=== PATIENT | female | born 1950 | race Caucasian/White ===

== ENCOUNTER 2019-03-23 18:57 | Inpatient (IN) | payer MEDICARE, BC ==
[2019-03-23] MEDS ORDERED: LORazepam 2 MG/ML INJ IV STA (19:38)
--- NOTE | 2019-03-23 19:42 | ED ---
General Adult HPI - General Chief complaint: Headache Stated complaint: Poss stroke Time Seen by Provider: 03/23/19 19:05 Source: patient Mode of arrival: ambulatory Limitations: no limitations - History of Present Illness Initial comments: Dictation was produced using [employer] dictation software. please excuse any grammatical, word or spelling errors. Chief Complaint: 69-year-old female with past medical history of atrial fibrillation, coronary artery disease presents with anxiety reaction. History of Present Illness:-year-old female she has a past medical history of anxiety. She states that over the last 3-4 days she's been really anxious. She's been hyperventilating to the point where her hands and feet will exp erience paresthesias. Patient denies any personal stress. Patient has a history of anxiety. Family at bedside reports that she is anxious about having another anxiety attack. Patient also reports having intermittent head pressure over the last 2 weeks. Denies any headache. Patient has no pain complaints. Denies any shortness of breath. The ROS documented in this emergency department record has been reviewed and confirmed by me. Those systems with pertinent positive or negative responses have been documented in the HPI. All other systems are other negative and/or noncontributory. PHYSICAL EXAM: General Impression: Alert and oriented x3, not in acute distress HEENT: Normocephalic atraumatic, extra-ocular movements intact, pupils equal and reactive to light bilaterally, mucous membranes moist. Cardiovascular: Heart regular rate and rhythm, S1&S2 audible, no murmurs, rubs or gallops Chest: Lungs clear to auscultation bilaterally, no rhonchi, no wheeze, no rales Abdomen: Bowel sounds present, abdomen soft, non-tender, non-distended, no organomegaly Musculoskeletal: Pulses present and equal in all extremities, no peripheral edema Motor: no focal deficits noted Neurological: CN II-XII grossly intact, no focal motor or sensory deficits noted Skin: Intact with no visualized rashes Psych: Anxious, hyperventilating ED course:-year-old female presents with clinical presentation consistent with acute anxiety reaction. As upon arrival shows blood pressure 206/99, worse jose l signs within acceptable limits. Laboratory evaluation obtained. CBC, metabolic panel, urine studies are found to be unremarkable. She does however have 2+ ketones. Patient given intravenous fluids. Patient also given IV benzodiazepines. Patient was observed [facility] department for couple hours with improvement of her anxiety symptoms. Repeat blood pressure was improved. Repeat EKG was performed showing persistent prolonged QT. At this point is unclear what is causing patient's long QT given that she has normal electrolytes. It is likely that secondary to what these medications however it's unclear which medications causing this. Given EKG abnormalities patient to be admitted to inpatient with cardiology consultation and cardiac monitoring. Patient is understandable agreeable to disposition. She case discussed with Dr. Stein who is willing to accept care of this patient. EKG interpretation: Ventricular rate 65, normal sinus rhythm,. Interval 140, care is 88, QTc 505. No KS prolongation, no ST or T-wave changes noted. EKG consistent with prolonged QT - Related Data Home Medications Medication Instructions Recorded Confirmed FLUoxetine HCL 40 mg PO DAILY 12/30/16 03/23/19 ALPRAZolam [Xanax] 0.5 mg PO Q6H PRN 03/23/19 03/23/19 Apixaban [Eliquis] 5 mg PO BID 03/23/19 03/23/19 Losartan [Cozaar] 50 mg PO DAILY 03/23/19 03/23/19 Sotalol HCl [Sotalol AF] 80 mg PO BID 03/23/19 03/23/19 Zolpidem Tartrate [Ambien] 5 mg PO HS PRN 03/23/19 03/23/19 busPIRone HCL 15 mg PO BID 03/23/19 03/23/19 Allergies Allergy/AdvReac Type Severity Reaction Status Date / Time No Known Allergies Allergy Verified 03/23/19 19:18 Review of Systems ROS Statement: Those systems with pertinent positive or pertinent negative responses have been documented in the HPI. ROS Other: All systems not noted in ROS Statement are negative. Past Medical History Past Medical History: Atrial Fibrillation, Coronary Artery Disease (CAD), Hypertension History of Any Multi-Drug Resistant Organisms: None Reported Additional Past Surgical History / Comment(s): Colonoscopy; kidney stone removal, exp. lap., cardioversion Past Anesthesia/Blood Transfusion Reactions: No Reported Reaction Past Psychological History: Anxiety Smoking Status: Current some day smoker Past Alcohol Use History: Rare Past Drug Use History: None Reported - Past Family History Father Family Medical History: Cancer General Exam Limitations: no limitations Course Vital Signs 03/23/19 18:59 Temperature 97.8 F Pulse Rate 71 Respiratory 24 Rate Blood Pressure 206/99 O2 Sat by Pulse 99 Oximetry Medical Decision Making - Lab Data Result diagrams: 03/23/19 19:54 03/23/19 19:54 Lab Results 03/23/19 03/23/19 03/23/19 Range/Units 19:54 19:54 19:55 WBC 9.0 (3.8-10.6) k/uL RBC 4.81 (3.80-5.40) m/uL Hgb 15.1 (11.4-16.0) gm/dL Hct 45.9 (34.0-46.0) % MCV 95.4 (80.0-100.0) fL MCH 31.4 (25.0-35.0) pg MCHC 32.9 (31.0-37.0) g/dL RDW 12.7 (11.5-15.5) % Plt Count 342 (150-450) k/uL Neutrophils % 66 % Lymphocytes % 21 % Monocytes % 8 % Eosinophils % 2 % Basophils % 0 % Neutrophils # 5.9 (1.3-7.7) k/uL Lymphocytes # 1.9 (1.0-4.8) k/uL Monocytes # 0.8 (0-1.0) k/uL Eosinophils # 0.2 (0-0.7) k/uL Basophils # 0.0 (0-0.2) k/uL Sodium 138 (137-145) mmol/L Potassium 3.9 (3.5-5.1) mmol/L Chloride 104 (98-107) mmol/L Carbon Dioxide 22 (22-30) mmol/L Anion Gap 12 mmol/L BUN 15 (7-17) mg/dL Creatinine 0.69 (0.52-1.04) mg/dL Est GFR (CKD-EPI)AfAm >90 (>60 ml/min/1.73 sqM) Est GFR (CKD-EPI)NonAf 89 (>60 ml/min/1.73 sqM) Glucose 104 H (74-99) mg/dL Calcium 10.7 H (8.4-10.2) mg/dL Magnesium 2.2 (1.6-2.3) mg/dL Urine Color Yellow Urine Appearance Clear (Clear) Urine pH 6.0 (5.0-8.0) Ur Specific [place] 1.029 (1.001-1.035) Urine Protein Trace H (Negative) Urine Glucose (UA) Negative (Negative) Urine Ketones 2+ H (Negative) Urine Blood Negative (Negative) Urine Nitrite Negative (Negative) Urine Bilirubin Negative (Negative) Urine Urobilinogen <2.0 (<2.0) mg/dL Ur Leukocyte Esterase Trace H (Negative) Urine RBC 2 (0-5) /hpf Urine WBC 1 (0-5) /hpf Ur Squamous Epith Cells <1 (0-4) /hpf Urine Mucus Occasional H (None) /hpf Disposition Clinical Impression: Prolonged QT interval, Anxiety Disposition: ADMITTED IP TO THIS HOSP Condition: Fair Referrals: Radha Love MD [Primary Care Provider] - 1-2 days Decision Time: 21:25
[2019-03-23 20:03] LABS: Basophils % (A) 0 %; Eosinophils # (A) 0.2 k/uL (0-0.7); Eosinophils % (A) 2 %; HCT 45.9 % (34.0-46.0); HGB 15.1 gm/dL (11.4-16.0); Lymphocytes # (A) 1.9 k/uL (1.0-4.8); Lymphocytes % (A) 21 %; MCH 31.4 pg (25.0-35.0); MCHC 32.9 g/dL (31.0-37.0); MCV 95.4 fL (80.0-100.0); Mean Platelet Volume 6.5; Monocytes # (A) 0.8 k/uL (0-1.0); Monocytes % (A) 8 %; Neutrophils # (A) 5.9 k/uL (1.3-7.7); Neutrophils % (A) 66 %; Platelet Count 342 k/uL (150-450); RBC 4.81 m/uL (3.80-5.40); RDW 12.7 % (11.5-15.5)
--- NOTE | 2019-03-23 20:04 | XR ---
EXAMINATION TYPE: XR chest 1V portable DATE OF EXAM: 03/23/2019 COMPARISON: NONE HISTORY: Headache for 2 weeks and weakness. TECHNIQUE: Single frontal view of the chest is obtained. FINDINGS: There is chronic parenchymal change without suspicious focal air space opacity, pleural ef fusion, or pneumothorax seen. The cardiac silhouette size is within normal limits. The osseous str uctures are demineralized. Surgical clips near gastroesophageal junction are redemonstrated. IMPRESSION: Chronic parenchymal changes without acute pulmonary process.
[2019-03-23 20:11] LABS: Anion Gap 12 mmol/L; Blood Urea Nitrogen 15 mg/dL (7-17); Calcium 10.7 mg/dL (8.4-10.2); Carbon Dioxide 22 mmol/L (22-30); Chloride 104 mmol/L (98-107); Glucose 104 mg/dL (74-99); Magnesium 2.2 mg/dL (1.6-2.3); Potassium 3.9 mmol/L (3.5-5.1); Sodium 138 mmol/L (137-145)
[2019-03-23 20:17] LABS: Appearance,Urine Clear (Clear); Bilirubin,Urine Negative (Negative); Blood,Urine Negative (Negative); Color,Urine Yellow; Glucose,Urine (UA) Negative (Negative); Ketones,Urine 2+ (Negative); Leukocyte Esterase,Urine Trace (Negative); Mucus,Urine Occasional /hpf; Nitrite,Urine Negative (Negative); Protein,Urine Trace (Negative); RBC,Urine 2 /hpf (0-5); Specific Gravity,Urine 1.029 (1.001-1.035); Squamous Epithelial Cell,Urine <1 /hpf (0-4); Urobilinogen,Urine <2.0 mg/dL (<2.0)
[2019-03-23] MEDS ORDERED: SODIUM CHLORIDE 0.9% 1,000 ML IV STA (20:38)
[2019-03-23] MEDS ORDERED: NALOXONE 0.4 MG/ML 1 ML VIAL IV PRN (21:20)
[2019-03-23 21:31] VITALS: RESP 18
[2019-03-23] MEDS ORDERED: hydrALAZINE HCL 20 MG/ML 1 ML VIAL IVP STA (21:39)
[2019-03-23] MEDS: ALPRAZolam 0.5 MG TAB PO PRN (21:44)
[2019-03-23 22:53] VITALS: BMI 22.8
[2019-03-24] MEDS: ZOLPIDEM 5 MG TAB PO PRN ×2 (00:11→23:12)
--- NOTE | 2019-03-24 00:52 | P.HPIM ---
History of Present Illness H&P Date: 03/24/19 The patient is a 69 yo F with a PMH of Afib (on Eliquis), CAD, and HTN who presented to the ED for a panic attack. The patient reported feeling anxious over the past week, with panic-attacks occuring daily, which she described as episodes with hyperventilation, sense of doom, head pressure, and chest tightness. She reports a long-standing history of anxiety for which she had been taking Fluoxetine and Buspirone and was recently also started on Ambien for insomnia. She reports that her panic attacks worsened after she turned 68 since her mother and grandmother both at the age of 69, and she thereby worries about her own well-being. The patient underwent an extensive evaluation in the ED w/ EKG showing NSR @ 65 bpm, w/ prolonged QTC at 505 ms, WBC 9, Hgb 15, BUN 15, Cr 0.69, and CXR showing chronic parenchymal changes without an acute process. The patient denied having a history of an abnormal EKG. The patient was subsequently admitted to the medicine service for further eval uation. Review of Systems Pertinent positives and negatives as discussed in HPI, a complete review of systems was performed and all other systems are negative. Past Medical History Past Medical History: Atrial Fibrillation, Coronary Artery Disease (CAD), Hypertension History of Any Multi-Drug Resistant Organisms: None Reported Additional Past Surgical History / Comment(s): Colonoscopy; kidney stone removal, exp. lap., cardioversion x2 Past Anesthesia/Blood Transfusion Reactions: No Reported Reaction Past Psychological History: Anxiety Smoking Status: Current some day smoker Past Alcohol Use History: Rare Additional Past Alcohol Use History / Comment(s): social smoker and drinker Past Drug Use History: None Reported - Past Family History Father Family Medical History: Cancer Medications and Allergies Home Medications Medication Instructions Recorded Confirmed Type FLUoxetine HCL 40 mg PO DAILY 12/30/16 03/23/19 History ALPRAZolam [Xanax] 0.5 mg PO Q6H PRN 03/23/19 03/23/19 History Apixaban [Eliquis] 5 mg PO BID 03/23/19 03/23/19 History Losartan [Cozaar] 50 mg PO DAILY 03/23/19 03/23/19 History Sotalol HCl [Sotalol AF] 80 mg PO BID 03/23/19 03/23/19 History Temazepam 30 mg PO HS PRN 03/23/19 03/23/19 History Zolpidem Tartrate [Ambien] 5 mg PO HS PRN 03/23/19 03/23/19 History busPIRone HCL 15 mg PO BID 03/23/19 03/23/19 History Allergies Allergy/AdvReac Type Severity Reaction Status Date / Time No Known Allergies Allergy Verified 03/23/19 19:18 Physical Exam Vitals: Vital Signs Temp Pulse Pulse Resp BP BP Pulse Ox 03/23/19 23:27 72 18 03/23/19 23:24 98.0 F 72 18 135/77 100 03/23/19 22:42 98.0 F 69 18 132/72 100 03/23/19 22:05 75 18 154/78 100 03/23/19 21:31 98.3 F 67 18 198/96 100 03/23/19 18:59 97.8 F 71 24 206/99 99 Intake and Output 03/23/19 03/23/19 03/24/19 14:59 22:59 06:59 Other: Voiding Method Toilet Weight 62.142 kg General: non toxic, anxious appearing female, no distress, appears at stated age, normal weight Derm: no unusual rashes/lesions no unusual ecchymoses, warm, dry Head: atraumatic, normocephalic, symmetric Eyes: EOMI, no lid lag, anicteric sclera, pupils equal round reactive to light ENT: Nose and ears atraumatic, no thrush, no pharyngeal erythema Neck: No thyromegaly, no cervical lymphadenopathy, trachea midline, supple Mouth: no lip lesion, mucus membranes moist Cardiovascular: Irregularly irregular, no murmur, positive posterior tibial pulse bilateral, no edema, capillary refill less than 2 seconds Lungs: CTA bilateral, no rhonchi, no rales , no accessory muscle use Abdominal: soft, nontender to palpation, no guarding, no appreciable organome sherry, normal bowel sounds Ext: no gross muscle atrophy, muscle strength 5 out of 5 in all 4 extremities grossly, no contractures, Neuro: CN II-XI grossly intact, light touch intact all 4 extremities, finger to nose within normal limits, Psych: Alert, oriented, anxious Results CBC & Chem 7: 03/23/19 19:54 03/23/19 19:54 Labs: Abnormal Lab Results - Last 24 Hours (Table) 03/23/19 03/23/19 Range/Units 19:54 19:55 Glucose 104 H (74-99) mg/dL Calcium 10.7 H (8.4-10.2) mg/dL Urine Protein Trace H (Negative) Urine Ketones 2+ H (Negative) Ur Leukocyte Esterase Trace H (Negative) Urine Mucus Occasional H (None) /hpf Thrombosis Risk Factor Assmnt - Choose All That Apply Any of the Below Risk Factors Present?: No Other Risk Factors: Yes Each Risk Factor Represents 2 Points: Age 61-74 years Other congenital or acquired thrombophilia - If yes, enter type in comment: No Thrombosis Risk Factor Assessment Total Risk Factor Score: 2 Thrombosis Risk Factor Assessment Level: Low Risk Assessment and Plan Plan: Prolonged QTc interval -Possibly secondary to sotalol, will hold for now -Cardiology evaluation -Hold SSRI (fluoxetine) -Cardiac monitoring Panic disorder -Hold home medications for now -Obtain records in a.m. to see if pheochromocytoma was ruled out Mild hypercalcemia -Check vitamin D and PTH Atrial fibrillation -Continue home medication, Eliquis -Hold sotalol Hypertension -Resume home medication: Losartan DVT prophylaxis -Eliquis The patient is admitted with an anticipated less than 2 midnight stay for evaluation of prolonged QT. CODE STATUS:Full Code Discussed with: Patient, Son Anticipated discharge date: 03/25/[address]: Home A total of 40 minutes was spent on the care of this complex patient more than 50% of the time was spent in counseling and care coordination.
[2019-03-24] MEDS: ALPRAZolam 0.5 MG TAB PO PRN ×4 (04:15→22:38)
[2019-03-24] MEDS ORDERED: SOTALOL 80 MG TAB PO SCH (09:00)
[2019-03-24] MEDS ORDERED: LOSARTAN 50 MG TAB PO SCH (09:00)
[2019-03-24] MEDS: APIXABAN 5 MG TAB PO SCH ×2 (09:11→20:36)
--- NOTE | 2019-03-24 09:47 | P.CRDCN ---
History of Present Illness Consult date: 03/24/19 Requesting physician: Shazia Stein Reason for Consult (text): Prolonged QT Chief complaint: Heart racing, bilateral hand tingling History of present illness: This is a pleasant 69-year-old female with history of hypertension, she also has history of paroxysmal atrial fibrillation and has undergone 2 cardioversions in the past. She follows with Dr. Zelalem boyer as her pediatric sports medicine specialist. Patient also has a history of mild anxiety for several years, as of December of this year she states that she's been extremely anxious, having several panic attacks one after the other since December. All of the women in her family at the age of 68 so she was quite anxious knowing that she was t urning 69 in January which she thinks precipitated a lot of these issues. Patient does smoke occasionally when she has an alcoholic beverage, otherwise she states she does not smoke. Does not drink caffeinated beverages. Chest x-ray shows chronic parenchymal changes without any acute pulmonary process. EKG shows a normal sinus rhythm, QT corrected was 505. Blood pressure on arrival here 206/99, heart rate 70, 99% on room air. White blood cell count is normal, hemoglobin 15.1, platelet count 342. Sodium 138, potassium 3.9, BUN 15 and creatinine 0.6. TSH is 2.5 magnesium 2.2. At the time of my examination this morning, patient is quite anxious, she states that her lips feel tingling in her fingers feel tingly, feels like her heart racing, she is currently in a normal sinus rhythm with a heart rate in the 70s. Past Medical History Past Medical History: Atrial Fibrillation, Coronary Artery Disease (CAD), Hypertension History of Any Multi-Drug Resistant Organisms: None Reported Additional Past Surgical History / Comment(s): Colonoscopy; kidney stone removal, exp. lap., cardioversion x2 Past Anesthesia/Blood Transfusion Reactions: No Reported Reaction Past Psychological History: Anxiety Smoking Status: Current some day smoker Past Alcohol Use History: Rare Additional Past Alcohol Use History / Comment(s): social smoker and drinker Past Drug Use History: None Reported - Past Family History Father Family Medical History: Cancer Medications and Allergies Home Medications Medication Instructions Recorded Confirmed Type FLUoxetine HCL 40 mg PO DAILY 12/30/16 03/23/19 History ALPRAZolam [Xanax] 0.5 mg PO Q6H PRN 03/23/19 03/23/19 History Apixaban [Eliquis] 5 mg PO BID 03/23/19 03/23/19 History Losartan [Cozaar] 50 mg PO DAILY 03/23/19 03/23/19 History Sotalol HCl [Sotalol AF] 80 mg PO BID 03/23/19 03/23/19 History Temazepam 30 mg PO HS PRN 03/23/19 03/23/19 History Zolpidem Tartrate [Ambien] 5 mg PO HS PRN 03/23/19 03/23/19 History busPIRone HCL 15 mg PO BID 03/23/19 03/23/19 History Allergies Allergy/AdvReac Type Severity Reaction Status Date / Time No Known Allergies Allergy Verified 03/23/19 19:18 Physical Exam Vitals: Vital Signs Temp Pulse Pulse Resp BP BP Pulse Ox 03/24/19 03:37 74 18 03/24/19 03:36 98.2 F 74 18 119/71 99 03/23/19 23:27 72 18 03/23/19 23:24 98.0 F 72 18 135/77 100 03/23/19 22:42 98.0 F 69 18 132/72 100 03/23/19 22:05 75 18 154/78 100 03/23/19 21:31 98.3 F 67 18 198/96 100 03/23/19 18:59 97.8 F 71 24 206/99 99 Intake and Output 03/23/19 03/24/19 03/24/19 22:59 06:59 14:59 Intake Total 240 Balance 240 Intake: Oral 240 Other: Voiding Method Toilet # Voids 1 Weight 62.142 kg 63.4 kg PHYSICAL EXAMINATION: GENERAL: 69-year-old female in no acute distress at the time of my examination HEENT: Head is atraumatic, normocephalic. Pupils equal, round. Sclera anicteric. Conjunctiva are clear. Mucous membranes of the mouth are moist. Neck is supple. There is no elevated jugular venous pressure. No carotid bruit is heard. HEART EXAMINATION: Heart S1, S2 normal. No murmur or gallop heard. CHEST EXAMINATION: Lungs are clear to auscultation and precussion. No chest wall tenderness is noted on palpation or with deep breathing. ABDOMEN: Soft, nontender. Bowel sounds are heard. No organomegaly noted. EXTREMITIES: 2+ peripheral pulses with no evidence of peripheral edema and no calf tenderness noted. NEUROLOGIC patient is awake, alert and oriented X3. . Results 03/23/19 19:54 03/23/19 19:54 CBC 03/23/19 Range/Units 19:54 WBC 9.0 (3.8-10.6) k/uL RBC 4.81 (3.80-5.40) m/uL Hgb 15.1 (11.4-16.0) gm/dL Hct 45.9 (34.0-46.0) % Plt Count 342 (150-450) k/uL Comprehensive Metabolic Panel 03/23/19 Range/Units 19:54 Sodium 138 (137-145) mmol/L Potassium 3.9 (3.5-5.1) mmol/L Chloride 104 (98-107) mmol/L Carbon Dioxide 22 (22-30) mmol/L BUN 15 (7-17) mg/dL Creatinine 0.69 (0.52-1.04) mg/dL Glucose 104 H (74-99) mg/dL Calcium 10.7 H (8.4-10.2) mg/dL Current Medications Generic Name Dose Route Start Last Admin Trade Name Freq PRN Reason Stop Dose Admin Alprazolam 0.5 mg 03/23/19 21:22 03/24/19 04:15 Xanax PO 0.5 mg Q6H PRN Administration Anxiety Apixaban 5 mg 03/24/19 09:00 Eliquis PO BID [facility] Losartan Potassium 50 mg 03/24/19 09:00 Cozaar PO DAILY [facility] Naloxone HCl 0.2 mg 03/23/19 21:20 Narcan IV Q2M PRN Opioid Reversal Zolpidem Tartrate 5 mg 03/23/19 21:22 03/24/19 00:11 Ambien PO 5 mg HS PRN Administration Insomnia Intake and Output 03/23/19 03/24/19 03/24/19 22:59 06:59 14:59 Intake Total 240 Balance 240 Intake: Oral 240 Other: Voiding Method Toilet # Voids 1 Weight 62.142 kg 63.4 kg 03/23/19 19:54 03/23/19 19:54 EKG Interpretations (text) EKG shows normal sinus rhythm with no acute changes. QTC 505 Assessment and Plan Plan: Assessment and plan #1 anxiety with possible anxiety attacks #2 prolonged QT #3 paroxysmal atrial fibrillation with 2 prior cardioversions, remaining in nor mal sinus rhythm #4 hypertension #5 occasional nicotine use Plan We will obtain an echocardiogram with Doppler study. Patient had been on fluoxetine as an outpatient which is an SSRI, this has been placed on hold. We have also currently placed her sotalol on hold. We'll repeat an EKG in the mo rning. Obtain records from Dr. Sanchez's office. Further recommendations to follow. DNP note has been reviewed, I agree with a documented findings and plan of care. Patient was seen and examined.
[2019-03-24] MEDS ORDERED: SOTALOL 80 MG TAB PO STA (10:48)
[2019-03-24 12:18] LABS: Parathyroid Hormone Intact 77.7 pg/mL (14.0-72.0); Vitamin D 25 Hydroxy 16.3 ng/mL (30.0-100.0)
--- NOTE | 2019-03-24 14:02 | ECHOF ---
Referral Reason:palpitations MEASUREMENTS -------- HEIGHT: 165.1 cm WEIGHT: 63.0 kg BP: RVIDd: 2.5 cm (< 3.3) IVSd: 1.0 cm (0.6 - 1.1) LVIDd: 4.0 cm (3.9 - 5.3) LVPWd: 1.1 cm (0.6 - 1.1) IVSs: 1.5 cm LVIDs: 2.8 cm LVPWs: 1.5 cm LAESV Index (A-L): 32.58 ml/m Ao Diam: 2.2 cm (2.0 - 3.7) AV Cusp: 1.8 cm (1.5 - 2.6) LA Diam: 4.0 cm (2.7 - 3.8) MV EXCURSION: 13.015 mm (> 18.000) MV EF SLOPE: 145 mm/s (70 - 150) EPSS: 0.3 cm MV E Lopez: 1.04 m/s MV DecT: 244 ms MV A Lopez: 0.26 m/s MV E/A Ratio: 170.05 RAP: 5.00 mmHg RVSP: 30.73 mmHg FINDINGS -------- Sinus rhythm with extra systolic beats. This was a technically good study. The left ventricular size is normal. Left ventricular wall thickness is normal. Overall left vent ricular systolic function is normal with, an EF between 60 - 65 %. The right ventricle is normal in size. LA is midly dilated 29-33ml/m2. The right atrium is normal in size. Interatrial and interventricular septum intact. The aortic valve is trileaflet and appears structurally normal. The mitral valve leaflets are mildly thickened. Moderate mitral regurgitation is present. Mild tricuspid regurgitation present. There is no evidence of pulmonary hypertension. The right v entricular systolic pressure, as measured by Doppler, is 30.73mmHg. Trace/mild (physiologic) pulmonic regurgitation. The aortic root size is normal. Normal inferior vena cava with normal inspiratory collapse consistent with estimated right atrial pre ssure of 5 mmHg. The pericardium is normal. CONCLUSIONS -------- 1. Sinus rhythm with extra systolic beats. 2. This was a technically good study. 3. The left ventricular size is normal. 4. Left ventricular wall thickness is normal. 5. Overall left ventricular systolic function is normal with, an EF between 60 - 65 %. 6. The right ventricle is normal in size. 7. LA is midly dilated 29-33ml/m2. 8. The right atrium is normal in size. 9. Interatrial and interventricular septum intact. 10. The aortic valve is trileaflet and appears structurally normal. 11. The mitral valve leaflets are mildly thickened. 12. Moderate mitral regurgitation is present. 13. Mild tricuspid regurgitation present. 14. There is no evidence of pulmonary hypertension. 15. The right ventricular systolic pressure, as measured by Doppler, is 30.73mmHg. 16. Trace/mild (physiologic) pulmonic regurgitation. 17. The aortic root size is normal. 18. Normal inferior vena cava with normal inspiratory collapse consistent with estimated right atrial pressure of 5 mmHg. 19. The pericardium is normal. CONSTRUCTION CONSULTANT: Sheba Molina RDCS
[2019-03-24] MEDS: SOTALOL 80 MG TAB PO SCH (20:48)
[2019-03-24] MEDS: LOSARTAN 50 MG TAB PO SCH (20:48)
[2019-03-25] MEDS: ALPRAZolam 0.5 MG TAB PO PRN ×2 (04:15→10:33)
[2019-03-25] MEDS: APIXABAN 5 MG TAB PO SCH (08:40)
[2019-03-25] MEDS: SOTALOL 80 MG TAB PO SCH (08:40)
[2019-03-25] MEDS: LOSARTAN 50 MG TAB PO SCH (08:40)
--- NOTE | 2019-03-25 10:21 | PN ---
PROGRESS NOTE Mrs. Hawthorne is a 69-year-old female with history of atrial fibrillation status post cardioversion, history of anxiety. She came in because she got anxious. She continued to have anxiety episode. She had a long QT interval but continued to be in sinus mechanism. She has no chest pain. No dizziness. No palpitation. She had an echocardiogram that revealed preserved left ventricular size and systolic function. Hemodynamically, she is stable. She continues to be on sotalol 80 mg twice a day, Eliquis 5 mg twice a day, losartan 50 mg twice a day. PHYSICAL EXAMINATION: Blood pressure running in the 140s with the heart rate in the 60s. LUNGS: Clear. HEART: Regular rate and rhythm. S1, S2. No S3. No rub. ABDOMEN: Soft, nontender. EXTREMITIES: No edema. IMPRESSION: 1. Atrial fibrillation, status post cardioversion, maintaining sinus mechanism. 2. Prolonged QT intervals with no significant change compared with the prior outpatient EKG. 3. Anxiety. RECOMMENDATION: I will decrease the dose of the sotalol to 40 mg twice a day. Continue the current medical regimen. Increase her level activity. I would expect she should be able to be discharged home soon and follow up with her primary call worker person. We will see her on an as-needed basis. Please feel free to call us for any questions. MMODL / IJN: [id number] /
[2019-03-25 12:34] VITALS: BP 157/91; PULSE 65; TEMP 98.2
--- NOTE | 2019-03-25 13:20 | P.CN ---
Psychiatric Consult - . Consult date: 03/25/19 Consult:: 03/25/19 12:47 Anxiety Assessment and Plan Assessment: he patient is a 69 yo F with a PMH of Afib (on Eliquis), CAD, and HTN who presented to the ED for a panic attack. The patient reported feeling anxious over the past week, with panic-attacks occuring daily, which she described as episodes with hyperventilation, sense of doom, head pressure, and chest tightness. She reports a long-standing history of anxiety for which she had been taking Fluoxetine and Buspirone and was recently also started on Ambien for insomnia. She reports that her panic attacks worsened after she turned 68 since her mother and grandmother both at the age of 69, and she thereby worries about her own well-being. The patient underwent an extensive evaluation in the ED w/ EKG showing NSR @ 65 bpm, w/ prolonged QTC at 505 ms, WBC 9, Hgb 15, BUN 15, Cr 0.69, and CXR showing chronic parenchymal changes without an acute process. The patient denied having a history of an abnormal EKG. The patient was subsequently admitted to the medicine service for further evaluation. Past Medical History Past Medical History: Atrial Fibrillation, Coronary Artery Disease (CAD), Hypertension History of Any Multi-Drug Resistant Organisms: None Reported Additional Past Surgical History / Comment(s): Colonoscopy; kidney stone removal, exp. lap., cardioversion x2 Past Anesthesia/Blood Transfusion Reactions: No Reported Reaction Past Psychological History: Anxiety Smoking Status: Current some day smoker Past Alcohol Use History: Rare Additional Past Alcohol Use History / Comment(s): social smoker and drinker Past Drug Use History: None Reported - Past Family History Father Family Medical History: Cancer Medications and Allergies Home Medications Medication Instructions Recorded Confirmed Type FLUoxetine HCL 40 mg PO DAILY 12/30/16 03/23/19 History ALPRAZolam [Xanax] 0.5 mg PO Q6H PRN 03/23/19 03/23/19 History Apixaban [Eliquis] 5 mg PO BID 03/23/19 03/23/19 History Losartan [Cozaar] 50 mg PO DAILY 03/23/19 03/23/19 History Sotalol HCl [Sotalol AF] 80 mg PO BID 03/23/19 03/23/19 History Temazepam 30 mg PO HS PRN 03/23/19 03/23/19 History Zolpidem Tartrate [Ambien] 5 mg PO HS PRN 03/23/19 03/23/19 History busPIRone HCL 15 mg PO BID 03/23/19 03/23/19 History Allergies Allergy/AdvReac Type Severity Reaction Status Date / Time No Known Allergies Allergy Verified 03/23/19 19:18 Mental Status Examination - The patient presents alert, pleasant, and cooperative. There calmly seated without any agitated behavior. [She] reports that [her] mood is good. Affect is congruent and euthymic. [She] deny having any suicidal or homicidal ideation intent or plan. [She] denies any auditory or visual hallucinations. There is no evidence of any delusional thought content. [Her] thought process is linear and goal-directed. [Her] speech is fluent and nonpressured. [Her] memory and concentration is grossly intact for the purposes of this session. Psychiatric impression: Major depressive disorder which is in remission: Anxiety uncontrolled Psychiatric recommendation: I wrote her prescription for 5 days of Klonopin 0.5 mg #10 twice a day and told her to follow up with her primary care physician. Also recommended that she see a psychiatrist for her overall medications. Thank you for the consult Lawrence Boone D.O. PhD (1) Anxiety Current Visit: Yes Status: Acute Code(s): F41.9 - ANXIETY DISORDER, UNSPECIFIED SNOMED Code(s): 23872185 Time with Patient: Less than 30
[2019-03-25] MEDS ORDERED: SOTALOL 80 MG TAB PO SCH (21:00)
--- NOTE | 2019-03-25 22:44 | DS ---
DISCHARGE SUMMARY DATE OF ADMISSION: March 23, 2019. DATE OF DISCHARGE: March 25, 2019. FINAL DIAGNOSES: 1. Prolonged QT interval. 2. Anxiety disorder, uncontrolled. 3. Major depressive disorder in remission. 4. Coronary artery disease. 5. Essential hypertension. 6. Paroxysmal atrial fibrillation currently in sinus rhythm. 7. Moderate mitral regurgitation, nonrheumatic. HOSPITAL COURSE: This patient presented with what appeared to patient being very anxious as to the family members that around the same age. She was found to have a prolonged QT interval for which reason Paxil was discontinued. Patient was seen by Dr. Boone from Psychiatry, who did add some Klonopin. Did have a follow up with Psychiatry as an outpatient. Also seen by Cardiology. 2D echocardiogram showed preserved LV function. Moderate MR. CONSULTATIONS: Dr. Boone from Psychiatry, Dr. Justin from Cardiology. PHYSICAL EXAMINATION: Temperature 98.2, pulse 5, respiratory rate 16, blood pressure 145/84, pulse ox 99 percent on room air. Lungs fair entry. Cardiovascular: First and second sounds normal. Patient is somewhat anxious. LABS: Vitamin D low at 16.3, calcium was high at 10.7, parathyroid up at 77.7, TSH is normal as 2.5. DISCHARGE MEDICATIONS: 1. Eliquis 5 mg p.o. b.i.d. 2. Temazepam 30 mg q.h.s. p.r.n. 3. Ambien 5 mg p.o. q.h.s. p.r.n. 4. BuSpar 50 mg b.i.d. 5. Cozaar 50 mg b.i.d. 6. Sotalol 40 mg b.i.d. 7. Klonopin 0.5 mg p.o. b.i.d. for 5 days. Discontinued medications: Prozac. FOLLOWUP: With Radha Love on March 29, 2019; Dr. Justin in 1 week. Outpatient psychiatry to be done. Also patient will be given a 30 day event monitor at cardiology office. Additionally, Dr. Radha Love can refer the patient to an photocomposing keyboard operator one is not available in the hospital regarding her abnormal calcium and parathyroid labs. Copy to Dr. Radha Love. MMODL / IJN: [id number] /
== END 2019-03-25 15:18 | disposition home or self-care (01) | DRG 310 ==
LOC: EC 18:57 → 3SCARD 21:21
PROVIDERS: ADMIT Hospitalist; ATTEND Hospitalist
DX: I45.81 Long QT syndrome (principal); E83.52 Hypercalcemia; F17.210 Nicotine dependence, cigarettes, uncomplicated; F32.9 Major depressive disorder, single episode, unspecified; F41.0 Panic disorder [episodic paroxysmal anxiety]; F41.1 Generalized anxiety disorder; I10 Essential (primary) hypertension; I25.10 Atherosclerotic heart disease of native coronary artery without angina pectoris; I34.0 Nonrheumatic mitral (valve) insufficiency; I48.0 Paroxysmal atrial fibrillation; Z79.01 Long term (current) use of anticoagulants; Z79.899 Other long term (current) drug therapy; Z87.442 Personal history of urinary calculi; Z80.9 Family history of malignant neoplasm, unspecified; G47.00 Insomnia, unspecified; R79.9 Abnormal finding of blood chemistry, unspecified
CPT/HCPCS: 36415; 71045; 80048; 81001; 82306; 83735; 83970; 84443; 85025; 93005; 93306; 96361; 96374; 96375; 99285

== ENCOUNTER → 2020-05-17 | Outpatient (CLI) | payer MEDICARE, BC ==
--- NOTE | 2020-05-17 16:21 | CONS ---
CONSULTATION DATE OF SERVICE: 05/17/2020 This patient is a 70-year-old lady who has been evaluated in [facility] for possible obstructive sleep apnea-hypopnea syndrome. HISTORY OF PRESENT ILLNESS/SLEEP-WAKE EVALUATION: Patient usually goes to bed around 9:30 and cannot fall asleep; falling asleep around 11, and then she sleeps until 8 a.m. No TV, although in bedroom she does a lot of thinking while she goes to bed. She denied history of snoring, but she wakes up from sleep 3 times with one episode of nocturia. In the morning the patient wakes up tired, has difficulties paying attention, worries about her sleep, has problems with memory, concentration, anxiety and claustrophobia. [place] Sleepiness Scale is 0. PAST MEDICAL HISTORY: Positive for atrial fibrillation, hypertension, panic attacks, anxiety, allergies, sinus problems. PAST SURGICAL HISTORY: Surgical treatment of kidney stone, exploratory stomach surgery many years ago. MEDICATIONS: Metoprolol, losartan, bupropion, temazepam, Benadryl. FAMILY HISTORY: Hypertension, stroke, sinus headaches, pneumonia, cancer. REVIEW OF SYSTEMS: Awakenings from sleep, difficulties initiating sleep. PHYSICAL EXAMINATION: GENERAL: A pleasant 70-year-old lady without distress. VITAL SIGNS: BP on the left 152/91, on the right 141/104. HR 74, RR 16, height 5 feet 6 inches, weight 154 pounds. Body mass index 24.8. Temperature 97.4, oxygen saturation at room air 90%. HEENT: PERRLA, EOMI. Evaluation of oropharynx showed tongue protrudes midline. Low position of soft palate. Mallampati III-IV. Neck measures 13 inches in circumference. NECK: Supple. No JVD. Thyroid is not palpable. LUNGS: Clear to percussion and to auscultation. Good air exchange. No wheezing or rhonchi. HEART: S1, S2. ABDOMEN: Soft. No tenderness. EXTREMITIES: No clubbing or cyanosis. 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 Cranial nerves 2 to 7 intact. There is no fasciculation or atrophy. noted. No focal deficits observed. IMPRESSION: 1. Multiple awakenings from sleep, including nocturia, low position of soft palate; possible obstructive sleep apnea-hypopnea syndrome. 2. History of atrial fibrillation. 3. Hypertension. 4. Anxiety. 5. History of panic attacks. 6. Allergies. 7. Sinus problems. 8. Status post surgical treatment of kidney stones. 9. Status post exploratory surgery for the stomach many years ago. PLAN: 1. Polysomnography for evaluation of patient's breathing during sleep. 2. CPAP/BiPAP titration if sleep study confirms obstructive sleep apnea-hypopnea syndrome. 3. Preferable position during sleep on the side. 4. No driving if patient feels any sleepiness. 5. I will see patient for follow up visit to explain results of testing and following plan. Thank you very much for referring this patient for consultation. Sincerely, Justino Roman MD, PhD, FAASM Diplomat of [employer] [employer] [facility] [place] MMODL / BRIANAN: [id number] /
== END | disposition home or self-care (01) ==
LOC: SLEEP 11:28
PROVIDERS: ATTEND Internal Medicine
DX: I10 Essential (primary) hypertension (principal); F41.9 Anxiety disorder, unspecified; J34.9 Unspecified disorder of nose and nasal sinuses; R35.1 Nocturia; Z86.59 Personal history of other mental and behavioral disorders; Z86.79 Personal history of other diseases of the circulatory system; T78.40XA Allergy, unspecified, initial encounter; Z98.890 Other specified postprocedural states; Z79.899 Other long term (current) drug therapy
CPT/HCPCS: 99211

== ENCOUNTER → 2020-07-02 | Outpatient (CLI) | payer MEDICARE, BC ==
[2020-07-02 11:55] LABS: RBC 4.55 m/uL (3.80-5.40); WBC 6.9 k/uL (3.8-10.6)
[2020-07-02 11:56] LABS: HCT 43.9 % (34.0-46.0); HGB 13.8 gm/dL (11.4-16.0); MCH 30.4 pg (25.0-35.0); MCHC 31.5 g/dL (31.0-37.0); MCV 96.6 fL (80.0-100.0); Mean Platelet Volume 7.5; Platelet Count 311 k/uL (150-450); RDW 12.7 % (11.5-15.5)
[2020-07-02 12:06] LABS: Potassium 4.8 mmol/L (3.5-5.1)
== END | disposition home or self-care (01) ==
LOC: LABWHC1 09:41
PROVIDERS: ATTEND Internal Medicine Clinical Cardiac Electrophysiology
DX: Z01.818 Encounter for other preprocedural examination (principal); I48.19 Other persistent atrial fibrillation
CPT/HCPCS: 36415; 80051; 82565; 84443; 84520; 85027

== ENCOUNTER 2020-07-03 06:34 | Day surgery (SDC) | payer MEDICARE, BC ==
[2020-07-02 12:42] VITALS: BMI 23.3
[~2020-07-03 06:34] MED LIST: SODIUM CHLORIDE 0.9% 1,000 ML IV SCH
[2020-07-03] MEDS ORDERED: SODIUM CHLORIDE 0.9% 1,000 ML IV ONE (07:17)
[2020-07-03] MEDS ORDERED: MIDAZOLAM 2 MG/2 ML VIAL IV STA (07:23)
[2020-07-03] MEDS ORDERED: ROCURONIUM BROMIDE 10 MG/ML 5 ML VIAL IV ONE (08:16)
[2020-07-03] MEDS ORDERED: fentaNYL (PF) 50 MCG/ML 2 ML AMP ONE (08:16)
[2020-07-03] MEDS ORDERED: PROPOFOL 10 MG/ML 20 ML VIAL IV ONE (08:16)
[2020-07-03] MEDS ORDERED: SUCCINYLCHOLINE CHLORIDE 100 MG/5 ML SYR IV ONE (08:16)
[2020-07-03] MEDS ORDERED: MIDAZOLAM 2 MG/2 ML VIAL ONE (08:16)
[2020-07-03] MEDS ORDERED: LIDOCAINE 1% INJ 10MG/ML (20 ML MDV) ONE ×2 (08:16→08:48)
[2020-07-03] MEDS ORDERED: PHENYLEPHRINE-0.9% NACL SYG 1 MG/10 ML SYRINGE ONE (08:16)
[2020-07-03] MEDS ORDERED: PROTAMINE SULFATE 10 MG/ML 5 ML VIAL IV ONE (08:16)
[2020-07-03] MEDS ORDERED: HEPARIN SODIUM,PORCINE 10,000 UNIT/ML 1 ML VIAL ONE (08:16)
[2020-07-03] MEDS ORDERED: NEOSTIGMINE 1 MG/ML 10 ML VIAL ONE (08:16)
[2020-07-03] MEDS ORDERED: GLYCOPYRROLATE 0.2 MG/ML 2 ML VIAL ONE (08:16)
[2020-07-03] MEDS ORDERED: FUROSEMIDE 10 MG/ML 2 ML VIAL ONE (08:16)
--- NOTE | 2020-07-03 08:23 | P.HPCAR ---
History of Present Illness This is Dr. Suarez dictating an H/P on this patient The patient was interviewed and examined IMPRESSION / ASSESSMENT: Persistent atrial fibrillation, symptomatic Valvular heart disease, mitral regurgitation with moderate MR Moderate tricuspid regurgitation Moderate atrial enlargement Hypertension Patient stable for cardio vascular standpoint PLAN: Proceed with A. fib ablation Continue anticoagulation, uninterrupted anticoagulation HPI Patient is symptomatic atrial fibrillation with tiredness fatigue applications Her main complaint is shortness of breath on exertion with reduction in exercise capacity She denies any fever chills cough No orthopnea PND No chest discomfort She does complain of palpitations Shortness of breath with exertion/and fatigue Patient took ELIQUIS this morning ROS: No fever chills or rigors, no cough, phlegm or expectoration, no nausea, vomiting or diarrhea, no hematuria, dysuria, no musculoskeletal complaints, no strokes or seizures, no skin lesions. EXAMINATION: Afebrile 97.7F, blood pressure 144/87 mmHg No JVD No lower extremity edema Soft abdomen line heart sounds S1 and S2 are normal soft systolic murmur Breath sounds are clear no rhonchi no crackles REVIEW OF LABS, ECG & MEDICAL DATA Moderate mitral regurgitation Moderate tricuspid regurgitation Biatrial enlargement Medications reviewed and include ELIQUIS 5 mg twice daily Losartan 50 g twice daily Toprol-XL 100 mg daily Physical Exam Vitals: Vital Signs Temp Pulse Resp BP Pulse Ox 07/03/20 07:12 97.7 F 68 16 144/87 100 Intake and Output 07/02/20 07/03/20 07/03/20 22:59 06:59 14:59 Intake Total 100 Balance 100 Intake: IV 100 Other: Weight 68.9 kg Past Medical History Past Medical History: Atrial Fibrillation, Hypertension, Sleep Apnea/CPAP/BIPAP Additional Past Medical History / Comment(s): See Dr Suarez's H&P,SOB, having another sleep study to be fitted for cpap Jul 2020,hypoglycemia History of Any Multi-Drug Resistant Organisms: None Reported Additional Past Surgical History / Comment(s): Colonoscopy; kidney stone removal, exp. lap., cardioversion x4 Past Anesthesia/Blood Transfusion Reactions: No Reported Reaction Smoking Status: Former smoker - Past Family History Father Family Medical History: Cancer Additional Family Medical History / Comment(s): lung Mother Additional Family Medical History / Comment(s): aneurysm brain stem Physical Examination Vital Signs Temp Pulse Resp BP Pulse Ox 07/03/20 07:12 97.7 F 68 16 144/87 100 Intake and Output 07/02/20 07/03/20 07/03/20 22:59 06:59 14:59 Intake Total 100 Balance 100 Intake: IV 100 Other: Weight 68.9 kg Results Current Medications Generic Name Dose Route Start Last Admin Trade Name Freq PRN Reason Stop Dose Admin Sodium Chloride 1,000 mls @ 20 mls/hr 07/03/20 05:48 Saline 0.9% IV .Q24H DUTCH Intake and Output 07/02/20 07/03/20 07/03/20 22:59 06:59 14:59 Intake Total 100 Balance 100 Intake: IV 100 Other: Weight 68.9 kg Patient Weight 07/04/20 06:59 Weight 68.9 kg
[2020-07-03] MEDS ORDERED: LIDOCAINE 1% INJ 10MG/ML (20 ML MDV) SQ ONE ×2 (09:12)
[2020-07-03] MEDS ORDERED: HEPARIN SOD,PORK IN 0.45% NACL 25,000 UNIT in 0.45% NACL 1 250ML.BAG IV ONE (09:14)
[2020-07-03] MEDS ORDERED: HEPARIN SODIUM (1,000 UNIT/ML) 1,000 UNIT in SODIUM CHLORIDE 0.9% 1,000 ML IRRIGATION ONE ×2 (11:10→14:00)
[2020-07-03] MEDS ORDERED: IOPAMIDOL-370 100ML BTL INJ ONE (11:17)
[2020-07-03] MEDS ORDERED: TEMAZEPAM 30 MG CAP PO PRN (14:55)
--- NOTE | 2020-07-03 14:55 | P.PCN ---
Preoperative Diagnosis: Diagnosis Atrial fibrillation, symptomatic, refractory to therapy Result Prominent posterior pericardial stripe and pericardial thickening, both LV and LA on intracardiac echo No left atrial appendage mass seen on intracardiac echo Mild mitral regurgitation noted on intracardiac echo Doppler, normal LV function Successful pulmonary vein isolation of all veins using cryo-ablation Complete entrance block in all 4 veins confirmed No evidence for phrenic nerve injury Esophageal deflection YES Linear ablation along the anterior septum close to the fossa ovalis an extended towards the left superior pulmonary vein anteriorly as the left atrial roof line Linear ablation along the ridge between the left atrial appendage and the left- sided pulmonary veins Mitral isthmus ablation, linear ablation Focal ablation right atrial septum below the SVC on the septal aspect with termination of tachycardia Electrical cardioversion with a synchronized shock across the chest YES Procedure details Patient was brought to the EP lab in a fasting state. Written informed consent was obtained prior to the procedure. Procedure performed under general anesthesia After initial muscle relaxant use, muscle relaxants were not given thereafter in order to assess phrenic nerve during procedure. Patient prepped and draped as per protocol Full cryo-set up with standard preparation of the cryoablation tools done. Femoral Venous access obtained on the right and left groins Venous and arterial Sheaths placed. Diagnostic catheters for the high right atrium, phrenic nerve stimulation and pacing, His bundle, RV and coronary sinus placed Intracardiac echo catheter placed. Long sheath placed in the right atrium Left and right transseptal catheterization performed under intracardiac echo guidance. Intravenous heparin with aCT above 300 Later, catheter positioning and balloon positioning in the left atrium, under intracardiac echo guidance Diagnostic EP study with Coronary sinus pacing and recording Baseline measurements Sinus cycle length 1267 post cardioversion line OH interval 170 ms, QRS 110 ms, QT interval 496 Atrial pacing performed from the high right atrium and the coronary sinus Transseptal catheterization performed RA pressure 12/6/9 LA pressure 30/5/17 Transseptal catheterization performed with standard sheath. The cryoablation sheath was then placed with an over the wire exchange without any acute complications. All 4 pulmonary veins were isolated in the following sequence: Left superior followed by left inferior followed by right superior followed by right inferior The cryo-ablation balloon was placed at the os of each vein 1.5 mL of IV dye was injected to confirm an occluded vein Goal during cryoablation was to achieve complete occlusion of the pulmonary vein, achieve -30 degrees C at 30 seconds and achieve -40 degrees C at 60 seconds and a time to effect of less than 60-90 seconds, . If not the balloon was repositioned to obtain this result After completion of Cryoblation with durations from 180-240 seconds, entrance block was confirmed with the Attain circular catheter in a roving fashion around the antrum of the pulmonary veins Phrenic nerve pacing was performed from the SVC, right innominate vein area and diaphragm voltage was monitored. Diaphragmatic contractions were also monitored manually for strength of contraction. Parameter goals for each cryo freeze Complete occlusion of the appropriate vein -30 degrees C by 30 seconds -40 degrees C by 60 seconds Minimum between minus 40-55 degrees C Thaw time greater than 10 seconds Balloon visualized by intracardiac echo The esophagus was intubated. Esophageal Temperature monitoring with a CIRCA catheter formed. Esophageal deflection for hypothermia of the esophagus below 30 degrees C Left superior pulmonary vein Complete isolation, entrance block Left inferior pulmonary vein Complete isolation, entrance block Right superior pulmonary vein, during phrenic nerve pacing Complete isolation, entrance block Right inferior pulmonary vein, during phrenic nerve pacing Complete isolation, entrance block At the end of the procedure the Achieve catheter was once again used to check for entrance block Phrenic nerve stimulation was performed to confirm diaphragmatic stimulation the end of the procedure Cine fluoroscopy was performed at the very end of the procedure to confirm movement of both diaphragms with inspiration and expiration PVI resulted in organization of atrial fibrillation 3-D electronic anatomic mapping of the left atrium performed Posterior wall did not show much of atrial signals, intravenous posterior wall was quiescent Linear ablation along the anterior septum close to the fossa ovalis up to the roof performed The atrial segment between the right sided pulmonary veins and this linear RF line was quiescent This line was then extended towards the roof to the left superior pulmonary vein anteriorly Linear ablation along the wide ridge between the left atrial appendage and the left-sided veins Further organization noted with these lesions sets Mitral isthmus line made with further organization and sloughing of atrial fibrillation cycle length but without termination Electrical cardioversion performed The RF line 0 interrogated The [place] sinus was mapped but this was not injected position to the RF line made and therefore no [place] sinus lesions were made for the mitral isthmus line Following that atrial tachycardia was induced, cycle length 340 ms The tricuspid and mitral annular were mapped and it was confirmed that this was not atrial flutter normal was at mitral reentry Left atrium was mapped again Right atrium was mapped in the earliest site was below the SVC on the septal aspect RF ablation here resulted in termination of atrial tachycardia With catheter manipulation atrial fibrillation once again induced and cardioverted to sinus rhythm At the end of the procedure the patient was extubated Heparin was reversed Venous sheaths were removed and hemostasis assured Procedures performed (PVI - CRYO Ablation) Diagnostic EP study CS pacing and recording Left and right transseptal catheterization 3D mapping) Intracardiac echocardiography Pulmonary vein isolation with transseptal and comprehensive EPS, 14941 Linear ablation along the anterior septum up to the left atrial roof and the left side, +54559 Along the left atrial ridge between left atrial appendage and left-sided veins, Linear ablation, left atrium, +97057 Ablation of discrete arrhythmia, mitral isthmus ablation, +[id number] Ablation of focal discrete arrhythmia right side septum just below SVC, +98939 Electrical cardioversion with a synchronized shock across the chest 21594 Patient tolerated the procedure well without any acute complications
[2020-07-03] MEDS ORDERED: ACETAMINOPHEN TAB 325 MG TAB PO PRN (14:57)
[2020-07-03] MEDS ORDERED: HYDROcodone/APAP 5-325MG 1 EACH TAB PO PRN (14:57)
[2020-07-03] MEDS ORDERED: HYDROCORTISONE 1% CREAM 30 GM TUBE TOPICAL PRN (14:58)
[2020-07-03] MEDS ORDERED: ACETAMINOPHEN IV (For NPO) 1,000 MG in EMPTY BAG 1 BAG IVPB ONE (15:30)
--- NOTE | 2020-07-03 16:02 | P.PRLE ---
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 fib ablation including pulmonary vein isolation and linear ablation in the left atrium as well as a focal ablation in the right atrium with termination of the atrial tachycardia However while the LV function is normal, left atrium is moderately enlarged, has mild mitral regurgitation, the pericardium didn't appear thickened and she may have had pericarditis in the past for an unclear reason I'm treating her with colchicine and will ask her to continue anticoagulation and a cardiac medications As long as she maintains sinus rhythm (reduce the dose of metoprolol to 50 mg by mouth daily Thank you for entrusting me with the care of the patient Warm regards Sincerely Armando Suarez
[2020-07-03 17:29] VITALS: RESP 16
[2020-07-03 17:49] LABS: Calcium 8.8 mg/dL (8.4-10.2); Magnesium 1.8 mg/dL (1.6-2.3)
[2020-07-03] MEDS ORDERED: TEMAZEPAM 15 MG CAP PO PRN (19:39)
[2020-07-03] MEDS: LOSARTAN 50 MG TAB PO SCH (20:19)
[2020-07-03] MEDS: APIXABAN 5 MG TAB PO SCH (20:19)
[2020-07-03] MEDS: COLCHICINE 0.6 MG EACH PO SCH (20:22)
[2020-07-04 07:49] VITALS: BP 98/64; PULSE 78; TEMP 97.9
--- NOTE | 2020-07-04 08:01 | P.DS ---
Providers Attending physician: Armando Suarez [facility] Hospital Course: Patient is resting comfortably in bed Denies any chest discomfort no pleuritic chest discomfort that she feels worn out Schaefer catheter has been removed No chest discomfort no shortness of breath no dizziness Telemetry shows sinus rhythm with PACs Labs are reviewed sodium 138 potassium 5.0 BUN 16 creatinine 0.78 magnesium 1.89 TSH 1.77 ESR 9 Afebrile 97.9F, pulse rate in the 70s, blood pressure 98/64 mmHg Breath sounds are clear no rhonchi no crackles Normal heart sounds no murmurs no gallops no rub Abdomen soft nontender External is warm no edema Impression Persistent symptomatic atrial fibrillation. Normal TSH Mild mitral regurgitation and intracardiac echo,. 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 No clear-cut channels to promote reentry Status post PVI Status post radiofrequency ablation of the roof and the anterior septum of the left atrium Ablation along the wide ridge between the left atrial appendage and the left- sided veins Linear ablation in the mitral isthmus. Ablation of focal atrial tachycardia on the septal aspect of the right atrium just inferior to the SVC with termination with a single RF lesion Diminutive signals along the left atrial wall post ablation The posterior wall is mostly scarred the only areas with atrial electrograms of reasonable amplitude are the left atrial appendage and portion of the anterior wall adjacent to the left atrial appendage Thickening of the posterior LA wall/pericardium Normal ESR CRP pending Very easily inducible atrial fibrillation despite extensive ablation in the left atrium and focal ablation in the right atrium with minor catheter manipulation Future considerations would include Ablation for any residual atrial tachycardia or atrial reentry Drug therapy for recurrent atrial fibrillation 1 week of colchicine post ablation Continue ELIQUIS Reduce metoprolol to 50 mg by mouth daily while in sinus rhythm Plan Discharge home today after ambulation, approximately 3 PM removal of groin sutures this morning. Discussed with the nurse Kandice Follow-up with Dr. Suarez one week Plan - Discharge Summary Discharge Rx Participant: No New Discharge Prescriptions: New RX: Metoprolol Succinate (ER) [Toprol XL] 50 mg PO DAILY #90 tab Discontinued Metoprolol Succinate (ER) [Toprol Xl] 100 mg PO DAILY No Action RX: Apixaban [Eliquis] 5 mg PO BID RX: Temazepam 30 mg PO HS PRN PRN Reason: Insomnia RX: Losartan [Cozaar] 50 mg PO BID #60 tab Discharge Medication List RX: Apixaban [Eliquis] 5 mg PO BID 03/23/19 [History] RX: Temazepam 30 mg PO HS PRN 03/23/19 [History] RX: Losartan [Cozaar] 50 mg PO BID #60 tab 03/25/19 [Rx] RX: Metoprolol Succinate (ER) [Toprol XL] 50 mg PO DAILY #90 tab 07/03/20 [Rx] Follow up Appointment(s)/Referral(s): Armando Suarez MD [STAFF PHYSICIAN] - 1 Week Activity/Diet/Wound Care/Special Instructions: Post EP study - Ablation instructions 1. Keep access sites dry for 2 days. 2. No heavy lifting or straining for 2 days. 3. Avoid bending the hips repeatedly for 2 days. 4. You may go up and down stairs slowly Call if the following is noted 1. Bleeding, increasing swelling or pain at the access sites. 2. Increasing chest discomfort, especially upon taking a deep breath. 3. Increasing shortness of breath, at rest or with exertion. 4. Undue cough / phlegm 5. Difficulty or pain while swallowing. 6. Pain or change in color in the extremities. 7. Fever, chills, rigors. 8. Increasing headache or neurologic symptoms. 9. Dizziness, fainting, palpitations Reduce metoprolol succinate to 50 mg by mouth daily Continue all other medications Continue apixaban Remove sutures from both groins prior to discharge Discharge Disposition: HOME SELF-CARE
[2020-07-04] MEDS: LOSARTAN 50 MG TAB PO SCH (08:56)
[2020-07-04] MEDS: APIXABAN 5 MG TAB PO SCH (08:56)
--- NOTE | 2020-07-04 10:12 | ECHOF ---
Referral Reason:post procedure MEASUREMENTS -------- HEIGHT: 165.1 cm WEIGHT: 68.5 kg BP: RVIDd: 3.1 cm (< 3.3) IVSd: 0.8 cm (0.6 - 1.1) LVIDd: 4.6 cm (3.9 - 5.3) LVPWd: 1.1 cm (0.6 - 1.1) IVSs: 1.1 cm LVIDs: 3.8 cm LVPWs: 1.4 cm LA Diam: 4.3 cm (2.7 - 3.8) LAESV Index (A-L): 28.50 ml/m Ao Diam: 3.0 cm (2.0 - 3.7) AV Cusp: 1.9 cm (1.5 - 2.6) MV EXCURSION: 20.347 mm (> 18.000) MV EF SLOPE: 120 mm/s (70 - 150) EPSS: 0.7 cm RAP: 5.00 mmHg RVSP: 24.94 mmHg FINDINGS -------- Sinus rhythm. This was a technically adequate study. LV size, wall thickness and systolic function are normal, with an EF greater than 55%. The left natasha tricular size is normal. The right ventricle is normal in size. Normal LA size by volume 22+/-6 ml/m2. The right atrial size is normal. There is mild aortic valve sclerosis. There is no evidence of aortic regurgitation. Mild mitral annular calcification present. Mild mitral regurgitation is present. Mild tricuspid regurgitation present. Right ventricular systolic pressure is normal at < 35 mmHg. The right ventricular systolic pressure, as measured by Doppler, is 24.94mmHg. Trace/mild (physiologic) pulmonic regurgitation. The aortic root size is normal. There is no pericardial effusion. CONCLUSIONS -------- 1. LV size, wall thickness and systolic function are normal, with an EF greater than 55%. 2. Normal LA size by volume 22+/-6 ml/m2. 3. There is mild aortic valve sclerosis. 4. Mild mitral regurgitation is present. 5. Mild tricuspid regurgitation present. 6. Trace/mild (physiologic) pulmonic regurgitation. 7. There is no pericardial effusion. CAREERS ADVISER: Leigh Covarrubias RDCS
[2020-07-04] MEDS: COLCHICINE 0.6 MG EACH PO SCH (12:35)
== END 2020-07-04 15:28 | disposition home or self-care (01) ==
LOC: CATHEP 06:34 → 3NCARDOBS 14:40 → CATHEP 07-04 15:28
PROVIDERS: ATTEND Internal Medicine Clinical Cardiac Electrophysiology
DX: I48.19 Other persistent atrial fibrillation (principal); I08.1 Rheumatic disorders of both mitral and tricuspid valves; I11.9 Hypertensive heart disease without heart failure; I47.1 Supraventricular tachycardia; G47.30 Sleep apnea, unspecified; J32.9 Chronic sinusitis, unspecified; E16.2 Hypoglycemia, unspecified; Z87.442 Personal history of urinary calculi; Z98.890 Other specified postprocedural states; Z87.891 Personal history of nicotine dependence; Z80.1 Family history of malignant neoplasm of trachea, bronchus and lung; Z82.49 Family history of ischemic heart disease and other diseases of the circulatory system; F41.9 Anxiety disorder, unspecified; Z79.01 Long term (current) use of anticoagulants; Z79.899 Other long term (current) drug therapy
CPT/HCPCS: 93306; 85347; 92960; 93662; 93613; 93656; 93657; 80048; 85652; 84443; 83735; 86140; C1769 ×5; C1894 ×2; C1730 ×2; C1893; C1759; C1733; C1766; C1732; J2250; J2720; J1644 ×3; J1940; J2710; J2001; J3010; J0131; J2370; J0330; J2704; Q9967

== ENCOUNTER → 2020-11-29 | Outpatient (CLI) | payer MEDICARE, BC ==
--- NOTE | 2020-11-29 22:33 | SFUN ---
SLEEP CENTER FOLLOW UP NOTE DATE OF SERVICE: 11/29/2020 70-year-old lady has been followed in Sleep Center for treatment of obstructive sleep apnea-hypopnea syndrome. Recently, patient had a polysomnogram which showed obstructive sleep apnea-hypopnea syndrome. The patient was started on treatment with CPAP. Today is her first visit after she was treated with CPAP. The patient feels better while using CPAP. She sleep better and she feels better during the day. [place] Sleepiness Scale is 5 today. I checked CPAP unit. CPAP pressure is 6 cm of water. Usage is 100% of nights, with average usage 9 hours per night. Leak is 20 L/minute, which is borderline. Apnea- hypopnea index is 1.4. The patient is using [place]ev[place] nasal pillow mask. MEDICATIONS: Metoprolol, losartan, bupropion, temazepam, Benadryl. PHYSICAL EXAM: Patient in no distress. BP 107/72, HR 53, RR 12, weight 147.6, temperature 97.6, oxygen saturation at room air 100%. HEENT: PERRLA, EOMI. Oropharynx extremely low position of soft palate. Mallampati 3-4. NECK: Supple, no JVD. Thyroid is not palpable. LUNGS: Clear to percussion and to auscultation. Good air exchange. No wheezing or rhonchi. HEART: S1, S2 regular. No murmurs, gallops, or rubs. ABDOMEN: Soft and nontender. Bowel sounds are present. No organomegaly appreciated. EXTREMITIES: No clubbing or cyanosis. PAN DEVULCANIZER HELPER: Awake, alert, and oriented X3. Cranial nerves 2 to 7 intact. There is no fasciculation or atrophy. noted. No focal deficits observed. IMPRESSION: 1. Obstructive sleep apnea-hypopnea syndrome in mild range. The patient demonstrated 100% compliance with treatment benefitting from treatment. 2. History of atrial fibrillation. 3. Anxiety. 4. Hypertension. 5. History of panic attacks. 6. ALLERGIES. 7. Sinus problems. 8. Status post surgical treatment of kidney stones. 9. Status post exploratory surgery for stomach many years ago. PLAN: 1. Patient will continue to use PAP equipment every night for the whole night. 2. Sleep hygiene with regular time in bed for at least 7-1/2 to 8 hours. 3. Precautions related to driving. No driving if feeling sleepiness. 4. I will maintain all necessary prescription for PAP supplies including mask, tube, filters. 5. Watching weight. 6. No driving if feeling sleepiness. 7. Follow-up visit in 6 months or earlier if patient has any problems. Thank you very much for allowing me to participate in the management of your patient. Sincerely, Justino Roman MD, PhD, FAASM Diplomat of [employer] Tensile Tester of [facility] [place] MMODL / BRIANAN: [id number] /
== END | disposition home or self-care (01) ==
LOC: SLEEP 14:25
PROVIDERS: ATTEND Internal Medicine
DX: G47.33 Obstructive sleep apnea (adult) (pediatric) (principal); F41.9 Anxiety disorder, unspecified; I10 Essential (primary) hypertension; J34.9 Unspecified disorder of nose and nasal sinuses; Z86.79 Personal history of other diseases of the circulatory system; Z79.899 Other long term (current) drug therapy; Z79.891 Long term (current) use of opiate analgesic; Z99.89 Dependence on other enabling machines and devices; Z86.59 Personal history of other mental and behavioral disorders; Z98.890 Other specified postprocedural states; T78.1XXA Other adverse food reactions, not elsewhere classified, initial encounter

== ENCOUNTER → 2021-07-25 | Outpatient (CLI) | payer MEDICARE, BC ==
[2021-07-25 18:51] LABS: Basophils # (A) 0.03 X 10*3/uL (0.00-0.10); Basophils % (A) 0.8 %; Eosinophils # (A) 0.03 X 10*3/uL (0.04-0.35); Eosinophils % (A) 0.8 %; HCT 41.3 % (37.2-46.3); HGB 13.3 g/dL (12.0-15.0); Lymphocytes # (A) 1.87 X 10*3/uL (0.90-5.00); Lymphocytes % (A) 47.2 %; MCH 30.9 pg (27.0-32.0); MCHC 32.2 g/dL (32.0-37.0); Mean Platelet Volume 10.2 fL (9.5-12.2); Monocytes % (A) 10.1 %; Neutrophils # (A) 1.62 X 10*3/uL (1.80-7.70); Neutrophils % (A) 40.8 %; Platelet Count 244 X 10*3/uL (140-440); RDW 13.4 % (11.5-14.5); WBC 3.96 X 10*3/uL (4.50-10.00)
[2021-07-25 19:43] LABS: Erythrocyte Sedimentation Rate 5 mm/Hr (0-30)
[2021-07-26 02:04] LABS: Hepatitis A Antibody IgM Non-Reactive (Non-Reactive); Hepatitis B Core IgM Non-Reactive (Non-Reactive); Hepatitis B Surface Antigen Non-Reactive (Non-Reactive); Hepatitis C IgG Antibody Non-Reactive (Non-Reactive)
[2021-07-26 05:11] LABS: % Iron Saturation 19.8 (12.00-45.00); Albumin 4.8 g/dL (3.80-4.90); Albumin/Globulin Ratio 2.18 (1.60-3.17); Anion Gap 10.6 mmol/L (4.00-12.00); BUN/Creat Ratio 16.67 Ratio (12.00-20.00); Calcium 9.9 mg/dL (8.7-10.3); Carbon Dioxide 26.4 mmol/L (21.6-31.8); Chol/HDL Ratio 1.99; Globulin 2.2 g/dL (1.6-3.3); LDL Cholesterol,Calculated 51.8 mg/dL (0.0-131.0); Magnesium 2.2 mg/dL (1.5-2.4); Non-African American GFR(CKD) 63.9 (60.0-200.0); Potassium 5.2 mmol/L (3.5-5.5); Total Bilirubin 0.8 mg/dL (0.3-1.2); VLDL Calculation 14.2 mg/dL (5.00-40.00)
[2021-07-26 05:18] LABS: Ferritin 63.1 ng/mL (10.0-291.0)
[2021-07-26 12:55] LABS: Ceruloplasmin 21.6 mg/dL (20.0-60.0)
[2021-07-26 12:58] LABS: Liver/Kidney Microsome Antibod 1.4 UNITS (<=20)
[2021-07-26 23:52] LABS: Cyclic Citrull Pep IgG Unit 0.8 U/mL; Cyclic Citrullinated Pep IgG NEGATIVE (NEGATIVE)
== END | disposition home or self-care (01) ==
LOC: LABWHC1 11:21
PROVIDERS: ATTEND Internal Medicine
DX: E78.2 Mixed hyperlipidemia (principal); K75.9 Inflammatory liver disease, unspecified; I10 Essential (primary) hypertension
CPT/HCPCS: 36415; 80053; 80061; 80074; 82390; 82728; 83516; 83540; 83550; 83735; 84443; 85025; 85652; 86038; 86200; 86376; 86431

== ENCOUNTER → 2021-08-29 | Outpatient (CLI) | payer MEDICARE, BC ==
--- NOTE | 2021-08-29 18:34 | SFUN ---
SLEEP CENTER FOLLOW UP NOTE DATE OF SERVICE: 08/29/2021 This 71-year-old lady has been followed in Sleep Center for treatment of obstructive sleep apnea-hypopnea syndrome. The patient continues to use her CPAP equipment. She told me that one night when she did not use it she woke up in the morning with episodes of choking and gasping for air. [place] Sleepiness Scale today is 3, which is perfect. I checked her CPAP unit. CPAP pressure is 6 cm of water. Usage is 26/30 nights, average 9.2 hours per night. Leak is 38 L/minute, which is slightly high. Patient changed her mask about one week ago; possibly high like could be related to the old mask. Apnea-hypopnea index is 1.8, which is perfect. MEDICATIONS: Metoprolol, Eliquis, temazepam. PHYSICAL EXAMINATION: GENERAL: Pleasant patient in no distress. VITAL SIGNS: BP 144/88, HR 77, RR 15, height 5 feet 6 inches, weight 145.2, body mass index 23.4, temperature 97.4, oxygen saturation at room air 98%. HEENT: PERRLA, EOMI, evaluation of oropharynx showed tongue protrudes midline. Extremely low position of soft palate; Mallampati III to IV. NECK: Supple, no JVD. Thyroid is not palpable. LUNGS: Clear to percussion and to auscultation. Good air exchange. No wheezing or rhonchi. HEART: S1, S2 regular. No murmurs, gallops, or rubs. ABDOMEN: Soft and nontender. Bowel sounds are present. No organomegaly appreciated. EXTREMITIES: No clubbing or cyanosis. UNDERWATER ROBOTICIST: Awake, alert, and oriented X3. Cranial nerves 2 to 7 intact. There is no fasciculation or atrophy. noted. No focal deficits observed. IMPRESSION: 1. Obstructive sleep apnea-hypopnea syndrome. The patient demonstrated good compliance with treatment, benefitting from treatment. 2. History of atrial fibrillation. 3. Hypertension. 4. Anxiety. 5. History of panic attacks. 6. Allergies. 7. Sinus problems. 8. Status post surgical treatment of kidney stones. 9. Status post exploratory surgery for stomach many years ago. PLAN: 1. Patient will continue to use PAP equipment every night for the whole night. 2. Sleep hygiene with regular time in bed for at least 7-1/2 to 8 hours. 3. Precautions related to driving. No driving if feeling sleepiness. 4. I will maintain all necessary prescription for PAP supplies including mask, tube, filters. 5. Watching weight. 6. Follow-up visit in 6 months or earlier if patient has any problems. Thank you very much for allowing me to participate in the management of your patient. Sincerely, Justino Roman MD, PhD, FAASM Diplomat of [employer] Sleep Medicine Board of [employer] Time Motion Analyst of [facility] [place] MMODL / IJN: [id number] /
== END | disposition home or self-care (01) ==
LOC: SLEEP 11:19
PROVIDERS: ATTEND Internal Medicine
DX: G47.33 Obstructive sleep apnea (adult) (pediatric) (principal); I10 Essential (primary) hypertension; F41.9 Anxiety disorder, unspecified; T78.40XA Allergy, unspecified, initial encounter; Z86.79 Personal history of other diseases of the circulatory system; Z87.448 Personal history of other diseases of urinary system; Z98.890 Other specified postprocedural states

== ENCOUNTER → 2021-11-20 | Outpatient (CLI) | payer MEDICARE, BC | END | disposition home or self-care (01) | LOC: LABPAT 13:00 | PROVIDERS: ATTEND Internal Medicine Clinical Cardiac Electrophysiology | DX: U07.1 COVID-19 (principal) | CPT/HCPCS: U0003; C9803 ==

== ENCOUNTER → 2022-07-18 | Outpatient (CLI) | payer MEDICARE, BC ==
--- NOTE | 2022-07-18 12:06 | FL ---
EXAMINATION TYPE: FL barium swallow w video DATE OF EXAM: 07/18/2022 CLINICAL HISTORY: 72-year-old female with sensation of food sticking, R13.10, Dysphagia. TECHNIQUE: Deglutition study is performed utilizing thin liquid barium, barium thick applesauce, and barium coated cracker. COMPARISON: None. Total fluoroscopy time: 2 minutes 13 seconds. Total images: None. Real-time fluoroscopy support was provided to speech pathology. FINDINGS: The oral and pharyngeal phases show satisfactory initiation and propagation with all modalities teste d. Normal mastication is seen with solid modalities tested. There is no evidence of penetration or aspiration with any modality tested. No significant pharyngeal residue was appreciated. We asked the patient to indicate the site of sticking sensation. The patient points to the upper ches t just below the thoracic inlet. We do note solid boluses stick at this level. Subsequent thin liquid bolus allows the solid to pass. No fixed narrowing is apparent here by single contrast. IMPRESSION: 1. No penetration or aspiration. 2. Solid boluses sticking at the upper thoracic esophagus just below the thoracic inlet. Unable to id entify any fixed narrowing/stricture by single contrast technique. Consider a dedicated esophagram wi th air contrast versus direct visualization. Findings may relate to focal esophageal dysmotility. Please refer to speech therapist notes for further details if necessary.
== END | disposition home or self-care (01) ==
LOC: RADFLMAIN 10:45
PROVIDERS: ATTEND Otolaryngology
DX: R13.10 Dysphagia, unspecified (principal)
CPT/HCPCS: 74230

== ENCOUNTER → 2022-08-22 | Outpatient (CLI) | payer MEDICARE, BC ==
[2022-08-22 15:17] LABS: HCT 39.2 % (37.2-46.3); HGB 12.7 g/dL (12.0-15.0); MCHC 32.4 g/dL (32.0-37.0); MCV 95.6 fL (80.0-97.0); Mean Platelet Volume 11.3 fL (9.5-12.2); NRBC Per 100 WBC 0 /100 WBCS (0.0-0.0); Platelet Count 209 X 10*3/uL (140-440); RDW 14.2 % (11.5-14.5)
[2022-08-22 16:22] LABS: African American GFR (CKD) 64.7 (60.0-200.0); Anion Gap 7.4 mmol/L (10.00-18.00); Carbon Dioxide 29.6 mmol/L (20.0-27.5); Non-African American GFR(CKD) 55.8 (60.0-200.0); Potassium 4.7 mmol/L (3.5-5.5)
== END | disposition home or self-care (01) ==
LOC: LABPAT 09:42
PROVIDERS: ATTEND Internal Medicine Clinical Cardiac Electrophysiology
DX: Z01.812 Encounter for preprocedural laboratory examination (principal); I48.19 Other persistent atrial fibrillation
CPT/HCPCS: 80051; 82565; 84520; 85027

== ENCOUNTER 2022-09-02 12:08 | Observation (INO) | payer MEDICARE, BC ==
[2022-09-02] MEDS: SODIUM CHLORIDE 0.9% 1,000 ML IV SCH (12:48)
[2022-09-02] MEDS ORDERED: MIDAZOLAM 2 MG/2 ML VIAL IV STA (15:32)
[2022-09-02] MEDS ORDERED: MIDAZOLAM 2 MG/2 ML VIAL IVP ONE (15:37)
[2022-09-02] MEDS ORDERED: KETAMINE 10 MG/ML 20 ML VIAL ONE (15:58)
[2022-09-02] MEDS ORDERED: LIDOCAINE 4% LTA KIT (4 ML) TOPICAL ONE (15:58)
[2022-09-02] MEDS ORDERED: PROPOFOL 10 MG/ML 20 ML VIAL IV ONE (15:58)
[2022-09-02] MEDS ORDERED: MIDAZOLAM 2 MG/2 ML VIAL ONE (15:58)
[2022-09-02] MEDS ORDERED: ePHEDrine 50 MG/ML 1 ML VIAL ONE (15:58)
[2022-09-02] MEDS ORDERED: ISOPROTERENOL 250 MCG/1.25 ML SYR IV ONE (15:58)
[2022-09-02] MEDS ORDERED: HEPARIN SODIUM,PORCINE 5,000 UNIT/ML 1 ML VIAL ONE (15:58)
[2022-09-02] MEDS ORDERED: ALBUTEROL INHALER 60 PUFF/8 GM INHALER (MHU) INHALATION ONE (15:58)
[2022-09-02] MEDS ORDERED: LIDOCAINE 2% INJ 20 MG/ML (2 ML VIAL) ONE (15:58)
[2022-09-02] MEDS ORDERED: fentaNYL (PF) 50 MCG/ML 2 ML AMP ONE (15:58)
[2022-09-02] MEDS ORDERED: HEPARIN SODIUM (1,000 UNIT/ML) 1,000 UNIT in SODIUM CHLORIDE 0.9% 1,000 ML IRRIGATION ONE (16:17)
[2022-09-02] MEDS ORDERED: LIDOCAINE 1% INJ 10MG/ML (30 ML VIAL-PF) SQ ONE (16:38)
[2022-09-02] MEDS ORDERED: HEPARIN SOD,PORK IN 0.45% NACL 25,000 UNIT in 0.45% NACL 1 250ML.BAG IV ONE (17:15)
[2022-09-02] MEDS ORDERED: IOPAMIDOL-370 50ML BTL INJ ONE (19:31)
--- NOTE | 2022-09-02 20:02 | P.HPCAR ---
History of Present Illness This is Dr. Suarez dictating an H/P on this patient The patient was interviewed and examined IMPRESSION / ASSESSMENT: Recurrent palpitations Documented atrial tachycardia on twelve-lead EKG with RVR Patient was asymptomatic with these episodes of chest discomfort Also complaining of shortness of breath PLAN: EP study and atrial tachycardia ablation as indicated Continue ELIQUIS HPI Patient continues to complain of recurrent palpitations During these palpitations she has episodes of chest discomfort When she is in normal rhythm and the heart is not beating fast she has no chest pain She's also been complaining of shortness of breath ROS: No fever chills or rigors, no cough, phlegm or expectoration, no nausea, vomiting or diarrhea, no hematuria, dysuria, no musculoskeletal complaints, no strokes or seizures, no skin lesions. EXAMINATION: Afebrile, pulse rate 60, blood pressure 183/84 mmHg normal pulse ox Bilateral crackles at the bases Normal heart sounds no murmurs Extended is warm no edema REVIEW OF LABS, ECG & MEDICAL DATA Medications include metoprolol succinate 25 mg daily, Cozaar 75 mg daily, Tambocor 50 mrem twice daily and ELIQUIS 5 mg twice daily Physical Exam Vitals: Vital Signs Temp Pulse Resp BP Pulse Ox 09/02/22 12:47 97.8 F 60 18 183/84 99 Intake and Output 09/02/22 09/02/22 09/02/22 06:59 14:59 22:59 Intake Total 20 1589 Output Total 300 Balance 20 1289 Intake: IV 20 1589 Output: Urine 300 Other: Weight 69 kg Past Medical History Past Medical History: Atrial Fibrillation, CVA/TIA, Hypertension, Sleep Apnea/CPAP/BIPAP Additional Past Medical History / Comment(s): See Dr Suarez's H&P,SOB, uses cpap,hypoglycemia,kidney stones,TIAs x2-"my brain feels funny" History of Any Multi-Drug Resistant Organisms: None Reported Past Surgical History: Cardiac Ablation Additional Past Surgical History / Comment(s): Colonoscopy; kidney stone removal, exp. lap., cardioversion x4 Past Anesthesia/Blood Transfusion Reactions: No Reported Reaction Additional Past Anesthesia/Blood Transfusion Reaction / Comment(s): heart rate fell very low with cardiac ablation and had trouble coming out of anesthesia, had paralytic before being sedated with kidney stone removal yrs ago Past Psychological History: Anxiety, Panic Disorder Smoking Status: Former smoker Past Alcohol Use History: Rare Additional Past Alcohol Use History / Comment(s): quit smoking 1999 approx, social smoker. Past Drug Use History: None Reported - Past Family History Father Family Medical History: Cancer Additional Family Medical History / Comment(s): lung Mother Additional Family Medical History / Comment(s): aneurysm brain stem Physical Examination Vital Signs Temp Pulse Resp BP Pulse Ox 09/02/22 12:47 97.8 F 60 18 183/84 99 Intake and Output 09/02/22 09/02/22 09/02/22 06:59 14:59 22:59 Intake Total 20 1589 Output Total 300 Balance 20 1289 Intake: IV 20 1589 Output: Urine 300 Other: Weight 69 kg Results Current Medications Generic Name Dose Route Start Last Admin Trade Name Freq PRN Reason Stop Dose Admin Alprazolam 0.25 mg 09/02/22 19:58 Alprazolam 0.25 Mg Tab PO DAILY PRN Anxiety Apixaban 5 mg 09/02/22 21:00 Apixaban 5 Mg Tab PO BID DUTCH Protocol Flecainide Acetate 50 mg 09/02/22 21:00 Flecainide 50 Mg Tab PO Q12HR DUTCH Sodium Chloride 1,000 mls @ 20 mls/hr 09/02/22 05:31 09/02/22 12:48 Saline 0.9% IV 10/02/22 05:32 920 mls .Q24H DUTCH Administration Lactated Ringer's 1,000 mls @ 20 mls/hr 09/02/22 05:31 Lactated Ringers IV 10/02/22 05:32 .Q24H DUTCH Losartan Potassium 75 mg 09/03/22 09:00 Losartan 50 Mg Tab PO DAILY DUTCH Metoprolol Succinate 25 mg 09/03/22 09:00 Metoprolol Succinate (Er) 25 Mg Tab.Er.24h PO DAILY DUTCH Non-Formulary Medication 150 mg 09/02/22 22:00 Pregabalin [Lyrica] PO TID DUTCH Intake and Output 09/02/22 09/02/22 09/02/22 06:59 14:59 22:59 Intake Total 20 1589 Output Total 300 Balance 20 1289 Intake: IV 20 1589 Output: Urine 300 Other: Weight 69 kg Patient Weight 09/03/22 06:59 Weight 69 kg
--- NOTE | 2022-09-02 20:20 | P.EPPROC ---
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 fib RF ablation of the posterior wall, inferior to the right inferior pulmonary vein Details Patient was brought to the EP lab in a fasting state. Written informed consent was obtained prior to procedure. The initial part of the procedure was performed under conscious sedation. Towards the end the patient was intubated and an esophageal temperature probe was placed for posterior wall ablation Venous sheaths were placed in the right left femoral veins in the local anesthesia Diagnostic mapping and ablation cath was placed Baseline measurements are as follows sinus cycle length of about 700 ms, OH interval 140 ms, QRS 127 ms and QT 490 AH 180 and HV 56 Sinus node recovery time@600 ms was 1241 ms. AV node Wenckebach block 470 ms Burst stimulation from the high right atrium was performed Mapping was performed from the coronary sinus Atrial tachycardia was very easily inducible with burst stimulation from the high right atrium at a cycle length of 370 ms Later on this is also inducible with coronary sinus pacing Although the patient had clear-cut P waves on surface leads The intracardiac electrograms although seemingly organized actually were clearance representative of atrial fibrillation with varying cycle lengths and varying electrograms characteristics The patient had eccentric variety of irregular atrial tachycardia, concentric variety of irregular atrial tachycardia as well as on where the mid coronary sinus poles for the earliest Intracardiac echo was performed Low left atrial appendage mass was noted Dilated left atrium No pericardial effusion a thickened pericardium noted LV and RV size and function are normal Transseptal catheterization was performed under intracardiac echo guidance RA pressure 13/0/5 LA pressure 16/2/8 Isuprel was started at low dose to induce and maintain the atrial tachycardia from 2-5 mics 3-D electro-anatomic mapping of the left atrium was performed after transseptal catheterization Voltage mapping revealed that the pulmonary veins with completely isolated. There was a very small gap In the roof line made previously There is a very small gap In the septal ablation made previously RF ablation was performed in these areas sequentially in the left atrial roof, LA septum Following this mapping of the eccentric atrial tachycardia was performed Termination occurred at the level of the mitral annulus in the previously made mitral isthmus line However the tachycardia will recover but with shorter duration A complete mitral isthmus line was made of the more concentric atrial tachycardia (distinct and separate) revealed an early zone in the posterior wall outside the right inferior pulmonary vein and inferior to it The patient was intubated for this portion of the procedure The circumflex catheter was placed RF ablation was performed away from the esophagus in this on Following that the patient continued to have this eccentric atrial tachycardia but with shorter duration The coronary sinus was then mapped and this eccentric atrial tachycardia versus mapped and RF ablation was applied within the coronary This resulted in a significant reduction in the duration and the frequency of the tachycardia and she was left with PACs atrial couplets and triplets originating from within the distal coronary sinus IV heparin was used during the procedure Sheaths were removed Intracardiac echo revealed absence of any pericardial effusion the end of the procedure and I she to the procedure well without any acute complications and successfully extubated and Vascade closure device applied to the sheaths This is a very long procedure requiring multiple because the patient go from 1 tachycardia into another Multiple left atrial 3-D activation maps of performed The left atrium was very dilated and sheaths support was used to provide adequate contact force
[2022-09-02] MEDS: LACTATED RINGERS 1,000 ML IV SCH (21:41)
[2022-09-02] MEDS: FLECAINIDE 50 MG TAB PO SCH (22:07)
[2022-09-02] MEDS: APIXABAN 5 MG TAB PO SCH (22:07)
[2022-09-02] MEDS: PREGABALIN 75 MG CAP PO SCH (22:07)
[2022-09-02] MEDS ORDERED: ALPRAZolam 0.25 MG TAB PO STA (22:19)
[2022-09-03] MEDS: ALPRAZolam 0.25 MG TAB PO PRN ×2 (01:47→19:29)
[2022-09-03] MEDS: LACTATED RINGERS 1,000 ML IV SCH (04:49)
[2022-09-03] MEDS: SODIUM CHLORIDE 0.9% 1,000 ML IV SCH (04:49)
[2022-09-03] MEDS: PREGABALIN 75 MG CAP PO SCH ×3 (10:04→20:56)
[2022-09-03] MEDS: METOPROLOL SUCCINATE (ER) 25 MG TAB.ER.24H PO SCH (10:05)
[2022-09-03] MEDS: APIXABAN 5 MG TAB PO SCH ×2 (10:05→20:55)
[2022-09-03] MEDS: LOSARTAN 25 MG TAB PO SCH (10:05)
[2022-09-03] MEDS: FLECAINIDE 50 MG TAB PO SCH ×2 (10:05→20:55)
--- NOTE | 2022-09-03 10:17 | XR ---
EXAMINATION TYPE: XR chest 2V DATE OF EXAM: 09/03/2022 COMPARISON: 03/23/2019 INDICATION: Short of breath TECHNIQUE: Frontal and lateral views of the chest are obtained. FINDINGS: The heart size is normal. The pulmonary vasculature is normal. Mild left lower lobe infiltrate is present. Correlate for atelectasis. Developing pneumonia could be considered. Some minimal subsegmental atelectasis at the right base may be present. IMPRESSION: 1. Mild bibasilar infiltrates greater at the left base. Correlate for pneumonia. Atelectasis is withi n the differential. Follow-up can be performed as clinically indicated.
--- NOTE | 2022-09-03 10:42 | P.PN ---
Subjective Progress Note Date: 09/03/22 HISTORY OF PRESENT ILLNESS: This is a 72-year-old female with a history of atrial fibrillation with previous ablation and PVI. Patient was found every current palpitations with documented atrial tachycardia. She underwent ablation with Dr. Suarez. The patient was examined this morning. She is complaining of shortness of breath. She has bilateral crackles. Per Dr. Suarez, patient had crackles yesterday before the procedure as well. No history of CHF. She is on nasal cannula at 2L. PHYSICAL EXAM: VITAL SIGNS: Reviewed. GENERAL: Well-developed in no acute distress. NECK: Supple. No JVD or thyromegaly LUNGS: Respirations even and unlabored. Lungs with crackles at bilateral bases. HEART: Regular rate and rhythm. S1 and S2 heard. EXTREMITIES: Normal range of motion. No clubbing or cyanosis. Peripheral pulses intact. No lower extremity edema ASSESSMENT: Atrial tachycardia, status post ablation History of atrial fibrillation with previous ablation and PVI Shortness of breath PLAN: Continue current cardiac medications Obtain 2V chest x-ray Obtain incentive spirometer Consult pulmonary for evaluation Continue to monitor patient for an additional 24 hours Further recommendations pending patient's course Nurse practitioner note has been reviewed by physician. Signing provider agrees with the documented findings, assessment, and plan of care. Objective - Vital Signs Vital signs: Vital Signs Temp 98.0 F 09/03/22 07:00 Pulse 78 09/03/22 07:00 Resp 18 09/03/22 07:00 BP 157/82 09/03/22 07:00 Pulse Ox 95 09/03/22 07:00 FiO2 Intake & Output 09/02/22 09/03/22 09/03/22 18:59 06:59 18:59 Intake Total 1609 50 118 Output Total 1150 700 Balance 1609 -1100 -582 Weight 69 kg Intake: IV 1609 50 Oral 118 Output: Urine 1150 700 Uretheral (Schaefer) 700 Other: Voiding Method Indwelling Catheter
--- NOTE | 2022-09-03 14:50 | P.CNPUL ---
History of Present Illness Consult date: 09/03/22 Requesting physician: Armando Suarez Reason for consult: dyspnea Chief complaint: Shortness of breath. History of present illness: Pulmonary consult dated 09/03/2022. 72-year-old female seen in room 624. The patient underwent an ablation yesterday. We are asked to see her because of shortness of breath. The patient states that for the last 3 weeks is so, she's been having shortness of breath. She states it before that, she never noticed shortness of breath. The patient states that she feels like she has a hard time breathing out. She denies any cough. She does admit to wheezing. She denies a prior history of any lung disease. She did smoke in the distant past, for maybe 8 or 10 years, infrequently. She denies any significant phlegm production. She denies any hemoptysis. Chest x-ray shows some mild bibasilar infiltrates, greater at the left lung base and on the right. This could be consistent with pneumonia, and/or atelectasis. There are no labs to report. Review of Systems REVIEW OF SYSTEMS: CONSTITUTIONAL: [Negative.] NEUROLOGIC: [ Negative.] HEENT: [ Negative.] CARDIAC: [Negative.] PULMONARY: Recent development of shortness of breath, and occasional wheezing. GI: [Negative.] : [Negative.] RHEUMATOLOGIC: [ Negative.] IMMUNOLOGIC: [ Negative.] ENDOCRINE: [Negative. ] DERMATOLOGIC: [Negative.] Past Medical History Past Medical History: Atrial Fibrillation, CVA/TIA, Hypertension, Sleep Apnea/CPAP/BIPAP Additional Past Medical History / Comment(s): See Dr Suarez's H&P,SOB, uses cpap,hypoglycemia,kidney stones,TIAs x2-"my brain feels funny" History of Any Multi-Drug Resistant Organisms: None Reported Past Surgical History: Cardiac Ablation Additional Past Surgical History / Comment(s): Colonoscopy; kidney stone removal, exp. lap., cardioversion x4 Past Anesthesia/Blood Transfusion Reactions: No Reported Reaction Additional Past Anesthesia/Blood Transfusion Reaction / Comment(s): heart rate fell very low with cardiac ablation and had trouble coming out of anesthesia, had paralytic before being sedated with kidney stone removal yrs ago Past Psychological History: Anxiety, Panic Disorder Smoking Status: Former smoker Past Alcohol Use History: Rare Additional Past Alcohol Use History / Comment(s): quit smoking 1999 approx, social smoker. Past Drug Use History: None Reported - Past Family History Father Family Medical History: Cancer Additional Family Medical History / Comment(s): lung Mother Additional Family Medical History / Comment(s): aneurysm brain stem Medications and Allergies Home Medications Medication Instructions Recorded Confirmed Type Apixaban [Eliquis] 5 mg PO BID 03/23/19 09/02/22 History Temazepam 30 mg PO HS PRN 03/23/19 09/02/22 History ALPRAZolam [Xanax] 0.25 mg PO DAILY PRN 11/19/21 09/02/22 History Biotin 10,000 mcg PO DAILY 11/19/21 09/02/22 History Calcium Carbonate [Calcium] 1,200 mg PO DAILY 11/19/21 09/02/22 History Cholecalciferol [Vitamin D3 (25 25 mcg PO DAILY 11/19/21 09/02/22 History Mcg = 1000 Iu)] Losartan [Cozaar] 75 mg PO DAILY 11/19/21 09/02/22 History Multivit-Min/Iron/Folic/Lutein 1 each PO DAILY 11/19/21 09/02/22 History [Centrum Silver Women Tablet] Pregabalin [Lyrica] 150 mg PO TID 11/19/21 09/02/22 History Vitamin B Complex 1 each PO DAILY 11/19/21 09/02/22 History Flecainide [Tambocor] 50 mg PO Q12HR #180 tablet 11/22/21 09/02/22 Rx Metoprolol Succinate [Toprol XL] 25 mg PO DAILY 09/02/22 09/02/22 History Allergies Allergy/AdvReac Type Severity Reaction Status Date / Time No Known Allergies Allergy Verified 09/02/22 12:26 Physical Exam Osteopathic Statement: *. No significant issues noted on an osteopathic structural exam other than those noted in the History and Physical/Consult. Vitals: Vital Signs Temp Pulse Pulse Resp BP BP Pulse Ox 09/03/22 07:00 98.0 F 78 18 157/82 95 09/03/22 01:32 97.5 F L 63 16 110/58 90 L 09/03/22 01:29 63 110/58 85 L 09/03/22 00:13 61 155/87 91 L 09/02/22 23:13 66 156/94 92 L 09/02/22 22:43 60 149/82 91 L 09/02/22 22:13 64 163/84 89 L 09/02/22 21:59 70 171/90 89 L 09/02/22 21:43 66 165/89 91 L 09/02/22 21:40 18 09/02/22 21:28 61 159/91 90 L 09/02/22 21:14 97.4 F L 64 18 159/85 91 L 09/02/22 20:46 63 17 157/78 95 09/02/22 20:31 62 16 141/77 95 09/02/22 20:16 97.1 F L 64 16 121/85 96 Intake and Output 09/02/22 09/03/22 09/03/22 22:59 06:59 14:59 Intake Total 1639 118 Output Total 550 600 700 Balance 1089 -600 -582 Intake: IV 1639 Oral 118 Output: Urine 550 600 700 Uretheral (Schaefer) 700 Other: Voiding Method Indwelling Catheter No acute distress, oriented 3. Currently on room air. Saturations 91-92% on room air. On 2 L, she is 95%. HEENT examination is grossly unremarkable. Neck supple. Full range of motion. No adenopathy thyromegaly or neck vein distention. Cardiovascular examination reveals regular rhythm rate. S1-S2 normal. No S3 or S4. No discernible murmur noted. Heart rate 78 bpm. A few premature atrial contractions are noted. Lungs reveal mostly clear breath sounds. Minimal crackles at the bases. No rhonchi. No wheezes. Breath sounds are equal bilaterally. Abdomen soft bowel sounds are heard. No masses or tenderness. Extremities are intact. No cyanosis clubbing or edema. Skin is without rash or lesion. Neurologic examination is brief but nonfocal. Results - Diagnostic Findings Chest x-ray: image reviewed Assessment and Plan Assessment: Recent development of shortness of breath, of unclear etiology. Differential diagnosis would include mild fluid overload, bibasilar pneumonia, occult asthma, or pulmonary embolism. History of atrial fibrillation, with a recent ablation. History of hypertension. History of CVA. History of sleep apnea syndrome, on CPAP. History of kidney stones. Plan: Plan dated 09/03/2022. The patient will get breathing treatments. In addition, the patient will be started on an oral antibiotic. We'll check a pro-calcitonin level, and N- terminal proBNP. Also, the patient will get a CT angiogram to rule out pulmonary embolism. The patient will need outpatient follow-up, with complete pulmonary function testing. Additional recommendations and suggestions are forthcoming. Time with Patient: Greater than 30
[2022-09-03] MEDS: IPRATROPIUM-ALBUTEROL 3 ML NEB INHALATION SCH ×2 (16:00→19:43)
[2022-09-03 17:50] LABS: ALT 72 U/L (4-34); AST 65 U/L (14-36); African American GFR (CKD) 79 (>60 ml/min/1.73 sqM); Albumin 4.9 g/dL (3.5-5.0); Albumin/Globulin Ratio 1.6; Alkaline Phosphatase 122 U/L (38-126); Anion Gap 12 mmol/L; Blood Urea Nitrogen 15 mg/dL (7-17); Calcium 9.8 mg/dL (8.4-10.2); Carbon Dioxide 26 mmol/L (22-30); Chloride 104 mmol/L (98-107); Glucose 93 mg/dL (74-99); Non-African American GFR(CKD) 68 (>60 ml/min/1.73 sqM); Potassium 4.2 mmol/L (3.5-5.1); Sodium 142 mmol/L (137-145); Total Bilirubin 0.7 mg/dL (0.2-1.3); Total Protein 7.9 g/dL (6.3-8.2)
--- NOTE | 2022-09-03 19:17 | CT ---
EXAMINATION TYPE: CT angio chest DATE OF EXAM: 09/03/2022 COMPARISON: None HISTORY: Rule out PE CT DLP: 237.80 mGycm Automated exposure control for dose reduction was used. CONTRAST: Performed with IV Contrast, patient injected with 100cc mL of Isovue 370. Images obtained from the thoracic inlet to the diaphragm with the IV contrast. There are 3-D post pro cessed images. There are moderate bilateral pleural effusions. Heart is enlarged. No pericardial effusion. There is bilateral basilar pulmonary infiltrates and atelectasis. There is some pulmonary interstitial mild ed naif. Thoracic aorta appears intact. The ascending aorta measures 3.4 cm. No aneurysm. There is normal cont rast opacification of the pulmonary arteries. No filling defect. Thoracic Fairly normal alignment. There is mild anterior wedging of T8 vertebra 20%. No evidence of rib fractu re. IMPRESSION: No evidence of pulmonary embolism. Pleural effusions and basilar infiltrates and atelectasis. This pr obably relates to some chronic congestive heart failure.
[2022-09-03] MEDS ORDERED: FUROSEMIDE 10 MG/ML 10 ML VIAL IV STA (19:58)
[2022-09-03 20:00] LABS: Glucose,Whole Blood 164 mg/dL (70-110)
[2022-09-03] MEDS: lisinopriL 5 MG TAB PO SCH (20:56)
[2022-09-03] MEDS ORDERED: AMOXIC-POT CLAV 875-125MG 1 EACH TAB PO SCH (21:00)
[2022-09-03] MEDS ORDERED: ALPRAZolam 0.25 MG TAB PO STA (23:00)
[2022-09-04] MEDS: SODIUM CHLORIDE 0.9% 1,000 ML IV SCH (06:44)
[2022-09-04] MEDS: LACTATED RINGERS 1,000 ML IV SCH (06:44)
--- NOTE | 2022-09-04 07:35 | XR ---
EXAMINATION TYPE: XR chest 2V DATE OF EXAM: 09/04/2022 COMPARISON: 09/03/2022 HISTORY: 72-year-old female CHF TECHNIQUE: PA and lateral views FINDINGS: Heart upper limits of normal in size. Increasing now small to moderate right and similar small left p leural effusions. Bibasilar opacities. IMPRESSION: Increasing, now small to moderate right and ongoing small left pleural effusions with adjacent atelec tasis and/or consolidation.
[2022-09-04] MEDS: IPRATROPIUM-ALBUTEROL 3 ML NEB INHALATION SCH ×4 (08:05→20:00)
[2022-09-04] MEDS: lisinopriL 5 MG TAB PO SCH (09:46)
[2022-09-04] MEDS: FUROSEMIDE 10 MG/ML 4 ML VIAL IV SCH (09:48)
[2022-09-04] MEDS: ALPRAZolam 0.25 MG TAB PO SCH ×2 (09:48→20:16)
[2022-09-04] MEDS: LOSARTAN 25 MG TAB PO SCH (09:48)
[2022-09-04] MEDS: METOPROLOL SUCCINATE (ER) 25 MG TAB.ER.24H PO SCH (09:48)
[2022-09-04] MEDS: PREGABALIN 75 MG CAP PO SCH ×3 (09:48→20:16)
[2022-09-04] MEDS: APIXABAN 5 MG TAB PO SCH ×2 (09:48→20:16)
[2022-09-04] MEDS: FLECAINIDE 50 MG TAB PO SCH ×2 (09:48→20:16)
--- NOTE | 2022-09-04 10:09 | P.CONS ---
History of Present Illness - Reason for Consult Consult date: 09/04/22 - History of Present Illness HISTORY OF PRESENT ILLNESS This is a 72-year-old female with past medical history of chronic atrial fibrillation with history of previous ablation and PVI, hypertension, hyp erlipidemia, generalized anxiety disorder and panic disorder. Patient was brought into the hospital by Dr. Suarez and underwent cardiac ablation on 09/02. The following day, patient developed shortness of breath and consult was added for pulmonary medicine and last evening consult was added for our services for medical management. Patient states that she felt she could not breathe yesterday she has had difficulty breathing for the past 3 weeks. With the shortness of breath she also had some chest pain all over her chest and radiated up into her neck. Patient describes feeling strangulating and thought she was "going to ." She did have some improvement with BiPAP. She also states that Xanax is helping her as well. Patient was started on IV Lasix with good urine output, and DuoNeb treatments.. Patient underwent CTA of the chest last evening which showed no evidence of pulmonary embolism. Pleural effusions and basilar infiltrates and atelectasis. This probably relates to chronic chronic congestive heart failure. A repeat chest x-ray this morning revealed increasing now small to moderate right and ongoing small left pleural effusions with adjacent atelectasis and/or consolidation. Patient has been afebrile, heart rate 94, biometrics specialist sinus rhythm, blood pressure 109/69, pulse ox 100% on 4 L nasal cannula. Laboratory studies performed yesterday revealed normal electrolytes and renal function. AST 65 and ALT 72. Pro-calcitonin 0.04. ProBNP 1020 REVIEW OF SYSTEMS Constitutional: No fever, no chills, no night sweats. No weight change. No weakness, fatigue or lethargy. No daytime sleepiness. EENT: No headache. No blurred vision or double vision, no loss of vision. No loss of Hearing, no ringing in the ears, no dizziness. No nasal drainage or congestion. No epistaxis. No sore throat. Lungs: No shortness of breath, cough, no sputum production. No wheezing. Cardiovascular: No chest pain, no lower extremity edema. No palpitations. No paroxysmal nocturnal dyspnea. No orthopnea. No lightheadedness or dizziness. No syncopal episodes. Abdominal: No abdominal pain. No nausea, vomiting. No diarrhea. No constipation. No bloody or tarry stools. No loss of appetite. Genitourinary: No dysuria, increased frequency, urgency. No urinary retention. Musculoskeletal: No myalgias. No muscle weakness, no gait dysfunction, no frequent falls. No back pain. No neck pain. Integumentary: No wounds, no lesions. No rash or pruritus. No unusual bruising. No change in hair or nails. Neurologic: No aphasia. No facial droop. No change in mentation. No head injury. No headache. No paralysis. No paresthesia. Psychiatric: No depression. No anxiety. No mood swings. Endocrine: No abnormal blood sugars. No weight change. No excessive sweating or thirst. No cold intolerance. MEDICAL HISTORY Chronic persistent atrial fibrillation Hypertension Hyperlipidemia Obstructive sleep apnea on CPAP TIA Generalized anxiety disorder and panic disorder Osteopenia of the right hip SURGICAL HISTORY Cardiac ablation Colonoscopy 2016 Kidney stone removal Exploratory laparotomy SOCIAL HISTORY Patient has history of smoking. FAMILY HISTORY Father at age 54 from lung cancer. Mother at age 69 from brain aneurysm. Patient has 6 brothers and one brother in an accident and one from pneumonia. Other living brothers have hypertension. Patient has 2 sisters, 1 son and 2 daughters with no major medical problems. PHYSICAL EXAMINATION Gen: This is a 72-year-old female. She is resting in bed and appears to be comfortable at rest. No acute respiratory distress noted. Family members are at bedside. HEENT: Head is atraumatic, normocephalic. Pupils equal, round. Sclerae is anicteric. NECK: Supple. No JVD. No lymphadenopathy. No thyromegaly. LUNGS: Few crackles at the bases. No wheezes or rhonchi. No intercostal retractions. HEART: First heart sound is depressed, second heart sound is normal, regular, no murmur. ABDOMEN: Soft. Bowel sounds are present. No masses. No tenderness. EXTREMITIES: No pedal edema. No calf tenderness. Dorsalis pedis +2 bilaterally NEUROLOGICAL: Patient is awake, alert and oriented x3. Cranial nerves 2 through 12 are grossly intact. ASSESSMENT AND PLAN 1. Acute hypoxic respiratory failure secondary to pulmonary edema, requiring oxygen therapy including BiPAP. Pulmonary embolism was ruled out by CTA. Patient is continued on IV Lasix 40 mg daily, Toprol-XL, DuoNeb treatment 4 times daily. 2. Chronic persistent atrial fibrillation status post ablation. Patient is in a sinus rhythm. Continue eliquis 5 mg twice daily, flecainide 50 mg every 12 hours, Toprol-XL 25 mg daily. 3. Generalized anxiety disorder. Continue patient on Xanax or 0.5 mg twice daily. 4. Hypertension. Continue losartan 75 mg daily, Toprol-XL 25 mg daily. 5. GI prophylaxis. Protonix. 6. DVT prophylaxis. Eliquis. DISCHARGE PLAN Return home. Impression and plan of care have been directed as dictated by the signing physician. Sulema Calabrese nurse practitioner acting as scribe for signing physician. Past Medical History Past Medical History: Atrial Fibrillation, CVA/TIA, Hypertension, Sleep Apnea/CPAP/BIPAP Additional Past Medical History / Comment(s): See Dr Suarez's H&P,SOB, uses cpap,hypoglycemia,kidney stones,TIAs x2-"my brain feels funny" History of Any Multi-Drug Resistant Organisms: None Reported Past Surgical History: Cardiac Ablation Additional Past Surgical History / Comment(s): Colonoscopy; kidney stone removal, exp. lap., cardioversion x4 Past Anesthesia/Blood Transfusion Reactions: No Reported Reaction Additional Past Anesthesia/Blood Transfusion Reaction / Comm: heart rate fell very low with cardiac ablation and had trouble coming out of anesthesia, had paralytic before being sedated with kidney stone removal yrs ago Past Psychological History: Anxiety, Panic Disorder Smoking Status: Former smoker Past Alcohol Use History: Rare Additional Past Alcohol Use History / Comment(s): quit smoking 1999 approx, social smoker. Past Drug Use History: None Reported - Past Family History Father Family Medical History: Cancer Additional Family Medical History / Comment(s): lung Mother Additional Family Medical History / Comment(s): aneurysm brain stem Medications and Allergies Home Medications Medication Instructions Recorded Confirmed Type Apixaban [Eliquis] 5 mg PO BID 03/23/19 09/02/22 History Temazepam 30 mg PO HS PRN 03/23/19 09/02/22 History ALPRAZolam [Xanax] 0.25 mg PO DAILY PRN 11/19/21 09/02/22 History Biotin 10,000 mcg PO DAILY 11/19/21 09/02/22 History Calcium Carbonate [Calcium] 1,200 mg PO DAILY 11/19/21 09/02/22 History Cholecalciferol [Vitamin D3 (25 25 mcg PO DAILY 11/19/21 09/02/22 History Mcg = 1000 Iu)] Losartan [Cozaar] 75 mg PO DAILY 11/19/21 09/02/22 History Multivit-Min/Iron/Folic/Lutein 1 each PO DAILY 11/19/21 09/02/22 History [Centrum Silver Women Tablet] Pregabalin [Lyrica] 150 mg PO TID 11/19/21 09/02/22 History Vitamin B Complex 1 each PO DAILY 11/19/21 09/02/22 History Flecainide [Tambocor] 50 mg PO Q12HR #180 tablet 11/22/21 09/02/22 Rx Metoprolol Succinate [Toprol XL] 25 mg PO DAILY 09/02/22 09/02/22 History Allergies Allergy/AdvReac Type Severity Reaction Status Date / Time No Known Allergies Allergy Verified 09/02/22 12:26 Physical Exam Vitals: Vital Signs Temp Pulse Pulse Pulse Resp BP Pulse Ox 09/04/22 08:05 96 09/04/22 03:21 64 16 109/69 95 09/03/22 23:43 80 18 144/81 96 09/03/22 23:29 97 09/03/22 22:44 152/89 09/03/22 21:12 82 22 137/97 99 09/03/22 20:14 09/03/22 20:07 09/03/22 19:59 90 09/03/22 19:44 91 93 L 09/03/22 15:00 98.3 F 63 18 162/93 94 L FiO2 09/04/22 08:05 09/04/22 03:21 09/03/22 23:43 09/03/22 23:29 09/03/22 22:44 09/03/22 21:12 09/03/22 20:14 50 09/03/22 20:07 75 09/03/22 19:59 09/03/22 19:44 09/03/22 15:00 Intake and Output 09/03/22 09/04/22 09/04/22 22:59 06:59 14:59 Intake Total 118 118 Output Total 2700 400 Balance -2582 -400 118 Intake: Oral 118 118 Output: Urine 2700 400 Other: Voiding Method Toilet Bedside Commode # Voids 3 Weight 66.6 kg Results CBC & Chem 7: 09/03/22 16:46 Labs: Abnormal Lab Results - Last 24 Hours (Table) 09/03/22 09/03/22 Range/Units 16:46 19:58 POC Glucose (mg/dL) 164 H (70-110) mg/dL AST 65 H (14-36) U/L ALT 72 H (4-34) U/L
--- NOTE | 2022-09-04 10:38 | P.PN ---
Subjective Progress Note Date: 09/04/22 HISTORY OF PRESENT ILLNESS: This is a 72-year-old female with a history of atrial fibrillation with previous ablation and PVI. Patient was found every current palpitations with documented atrial tachycardia. She underwent ablation with Dr. Suarez. The patient was examined this morning. She is complaining of shortness of breath. She has bilateral crackles. Per Dr. Suarez, patient had crackles yesterday before the procedure as well. No history of CHF. She is on nasal cannula at 2L. 09/04/2022 Patient developed respiratory distress yesterday evening. She was given a dose of IV Lasix per pulmonary and placed on a BiPAP. She was transferred to [facility]. Patient examined this morning at the bedside. Patient's family is present. Patient states her breathing has improved since yesterday. She underwent chest CT which was negative for PE. Chest x-ray this morning reveals increasing now small to moderate right and ongoing left pleural effusions with adjacent atelectasis and/or consolidation PHYSICAL EXAM: VITAL SIGNS: Reviewed. GENERAL: Well-developed in no acute distress. NECK: Supple. No JVD or thyromegaly LUNGS: Respirations even and unlabored. Lungs with crackles at bilateral bases, right worse than left, improved from yesterday. HEART: Regular rate and rhythm. S1 and S2 heard. EXTREMITIES: Normal range of motion. No clubbing or cyanosis. Peripheral pulses intact. No lower extremity edema ASSESSMENT: Atrial tachycardia, status post ablation History of atrial fibrillation with previous ablation and PVI Shortness of breath secondary to pulmonary edema Bilateral pleural effusions Anxiety PLAN: Continue current cardiac medications Continue incentive spirometer Begin Lasix 40mg IV daily Check 2D echo Check ESR and CBC Daily weights, accurate I&O, and monitoring of kidney function Pulmonary following Change xanax from PRN to scheduled BID Further recommendations pending patient course Nurse practitioner note has been reviewed by physician. Signing provider agrees with the documented findings, assessment, and plan of care. Objective - Vital Signs Vital signs: Vital Signs Temp 96.3 F L 09/04/22 08:15 Pulse 94 09/04/22 08:16 Resp 18 09/04/22 08:15 BP 130/74 09/04/22 08:15 Pulse Ox 95 09/04/22 08:15 FiO2 50 09/03/22 20:14 Intake & Output 09/03/22 09/04/22 09/04/22 18:59 06:59 18:59 Intake Total 236 118 Output Total 700 3100 Balance -464 -3100 118 Weight 66.6 kg Intake: Oral 236 118 Output: Urine 700 3100 Uretheral (Schaefer) 700 Other: Voiding Method Toilet Bedside Commode # Voids 3 - Labs CBC & Chem 7: 09/03/22 16:46 Labs: Abnormal Lab Results - Last 24 Hours (Table) 09/03/22 09/03/22 Range/Units 16:46 19:58 POC Glucose (mg/dL) 164 H (70-110) mg/dL AST 65 H (14-36) U/L ALT 72 H (4-34) U/L
[2022-09-04 11:05] LABS: Basophils % (A) 0 %; Eosinophils # (A) 0.1 k/uL (0-0.7); Eosinophils % (A) 2 %; HCT 44.5 % (34.0-46.0); HGB 14.9 gm/dL (11.4-16.0); Lymphocytes # (A) 1.3 k/uL (1.0-4.8); Lymphocytes % (A) 19 %; MCH 31.8 pg (25.0-35.0); MCHC 33.4 g/dL (31.0-37.0); Mean Platelet Volume 8.9; Monocytes # (A) 0.4 k/uL (0-1.0); Monocytes % (A) 6 %; Neutrophils % (A) 71 %; Platelet Count 224 k/uL (150-450); RBC 4.68 m/uL (3.80-5.40); RDW 13.6 % (11.5-15.5)
[2022-09-04 11:09] LABS: MCV 95.1 fL (80.0-100.0)
--- NOTE | 2022-09-04 12:45 | P.PN ---
Subjective Progress Note Date: 09/04/22 Principal diagnosis: Shortness of breath/CHF. Pulmonary consult dated 09/03/2022. 72-year-old female seen in room 624. The patient underwent an ablation yesterday. We are asked to see her because of shortness of breath. The patient states that for the last 3 weeks is so, she's been having shortness of breath. She states it before that, she never noticed shortness of breath. The patient states that she feels like she has a hard time breathing out. She denies any cough. She does admit to wheezing. She denies a prior history of any lung disease. She did smoke in the distant past, for maybe 8 or 10 years, infrequently. She denies any significant phlegm production. She denies any hemoptysis. Chest x-ray shows some mild bibasilar infiltrates, greater at the left lung base and on the right. This could be consistent with pneumonia, and/or atelectasis. There are no labs to report. Progress note dated 09/04/2022. The patient developed worsening shortness of breath yesterday. A rapid response was called. I had ordered a pro-calcitonin level, a N-terminal proBNP, breathing treatments, antibiotics, and a CT angiogram. The CTA Sanket Thomas was negative for pulmonary embolism, but did show significant changes of fluid overload/CHF, with large pleural effusions. The patient was given 60 of Lasix IV push, and placed on BiPAP, and transferred to the 3 S. floor. I'm happy to report that she's feeling much better today. I was in contact with her [id number]. Today's white count was 7, hemoglobin 14.9, hematocrit 44.5, and platelet count 224,000. The patient's pro-calcitonin level was 0.04 and antibiotics were discontinued. The N-terminal proBNP value was 1020. Objective - Vital Signs Vital signs: Vital Signs Temp 96.3 F L 09/04/22 08:15 Pulse 72 09/04/22 11:52 Resp 18 09/04/22 08:15 BP 130/74 09/04/22 08:15 Pulse Ox 95 09/04/22 08:15 FiO2 50 09/03/22 20:14 Intake & Output 09/03/22 09/04/22 09/04/22 18:59 06:59 18:59 Intake Total 236 118 Output Total 700 3100 Balance -464 -3100 118 Weight 66.6 kg 65.9 kg Intake: Oral 236 118 Output: Urine 700 3100 Uretheral (Schaefer) 700 Other: Voiding Method Toilet Bedside Commode # Voids 3 - Exam No acute distress, oriented 3. Currently on 4 L. Saturations are 95%. HEENT examination is grossly unremarkable. Neck supple. Full range of motion. No adenopathy thyromegaly or neck vein distention. Cardiovascular examination reveals regular rhythm rate. S1-S2 normal. No S3 or S4. No discernible murmur noted. Heart rate 72 bpm. Lungs reveal mostly clear breath sounds. Minimal crackles at the bases. No rhonchi. No wheezes. Breath sounds are equal bilaterally. Abdomen soft bowel sounds are heard. No masses or tenderness. Extremities are intact. No cyanosis clubbing or edema. Skin is without rash or lesion. Neurologic examination is brief but nonfocal. - Labs CBC & Chem 7: 09/04/22 10:27 09/03/22 16:46 Labs: Abnormal Lab Results - Last 24 Hours (Table) 09/03/22 09/03/22 Range/Units 16:46 19:58 POC Glucose (mg/dL) 164 H (70-110) mg/dL AST 65 H (14-36) U/L ALT 72 H (4-34) U/L Assessment and Plan Assessment: Recent development of shortness of breath, secondary to CHF, and large bilateral pleural effusions. History of atrial fibrillation, with a recent ablation. History of hypertension. History of CVA. History of sleep apnea syndrome, on CPAP. History of kidney stones. Plan: Plan dated 09/03/2022. The patient will get breathing treatments. In addition, the patient will be started on an oral antibiotic. We'll check a pro-calcitonin level, and N- terminal proBNP. Also, the patient will get a CT angiogram to rule out pulmonary embolism. The patient will need outpatient follow-up, with complete pulmonary function testing. Additional recommendations and suggestions are forthcoming. Plan dated 09/04/2022. The patient responded very nicely to IV Lasix. She was able to urinate about 4 L. The patient also was placed on BiPAP, and transferred to the cardiology floor. Antibiotics were discontinued as her pro-calcitonin level was quite low. Her N-terminal proBNP was modestly elevated. The CAT scan was very impressive as it showed significant heart failure, and large bilateral pleural effusions. She will continue on breathing treatments. Additional recommendations and suggestions are forthcoming. Time with Patient: Less than 30
[2022-09-04 12:51] LABS: Erythrocyte Sedimentation Rate 10 mm/hr (0-20)
--- NOTE | 2022-09-04 15:17 | CA ---
Transthoracic Echo Report Name: Norma Hawthorne Age: 72 Gender: F : 1950 Exam Date: 09/04/2022 10:53 Exam Location: [facility] Ht (in): 66 Wt (lb): 146 Ordering Physician: Doreen Flores Attending/Referring Phys: [id number], Sandra Material Checker Yeny Benitez RDCS Procedure CPT: Indications: SOB, s/p ablation Cardiac Hx: Technical Quality: Good Contrast 1: Total Dose (mL): Contrast 2: Total Dose (mL): MEASUREMENTS (Male / Female) Normal Values 2D ECHO LV Diastolic Diameter PLAX 4.6 cm 4.2 - 5.9 / 3.9 - 5.3 cm LV Systolic Diameter PLAX 3.1 cm IVS Diastolic Thickness 0.9 cm 0.6 - 1.0 / 0.6 - 0.9 cm LVPW Diastolic Thickness 0.9 cm 0.6 - 1.0 / 0.6 - 0.9 cm LV Relative Wall Thickness 0.4 RV Internal Dim ED PLAX 3.2 cm LA Systolic Diameter LX 3.6 cm 3.0 - 4.0 / 2.7 - 3.8 cm LA Volume 62.4 cm??? 18 - 58 / 22 - 52 cm??? M-MODE Aortic Root Diameter MM 3.1 cm MV E Point Septal Separation 0.4 cm AV Cusp Separation MM 2.0 cm DOPPLER AV Peak Velocity 119.8 cm/s AV Peak Gradient 5.7 mmHg MV Area PHT 3.8 cm??? Mitral E Point Velocity 77.8 cm/s Mitral A Point Velocity 34.6 cm/s Mitral E to A Ratio 2.2 MV Deceleration Time 200.0 ms MV E' Velocity 5.5 cm/s Mitral E to MV E' Ratio 14.1 TR Peak Velocity 241.4 cm/s TR Peak Gradient 23.3 mmHg Right Ventricular Systolic Press 26.9 mmHg FINDINGS Left Ventricle Left ventricular ejection fraction is estimated at 50-55 %. Left ventricular cavity size normal. Left ventricular wall thickness normal. Right Ventricle Normal right ventricular size and function. Right ventricular systolic pressure within normal limits. Right Atrium Normal right atrial size. Left Atrium Mildly increased left atrial volume. Mildly increased left atrial area. No evidence for an atrial septal defect. Mitral Valve Structurally normal mitral valve. Mild mitral regurgitation. Aortic Valve Trileaflet aortic valve. No aortic valve stenosis or regurgitation. Tricuspid Valve Mild tricuspid regurgitation. Pulmonic Valve Structurally normal pulmonic valve. Pericardium Normal pericardium. No pericardial effusion. Aorta Normal size aortic root and proximal ascending aorta. CONCLUSIONS Normal LV systolic function without segmental wall motion abnormalities Biatrial enlargement line normal RV size and function No pericardial effusion Previewed by: Dr. Armando Suarez MD (Electronically Signed) Final Date: 04 September 2022 15:16
[2022-09-04 21:42] VITALS: TEMP 98.3
[2022-09-05] MEDS ORDERED: PANTOPRAZOLE 40 MG TABLET PO SCH (07:30)
[2022-09-05 09:01] VITALS: BP 120/66; RESP 18
[2022-09-05] MEDS: PREGABALIN 75 MG CAP PO SCH (09:01)
[2022-09-05] MEDS: FLECAINIDE 50 MG TAB PO SCH (09:01)
[2022-09-05] MEDS: FUROSEMIDE 10 MG/ML 4 ML VIAL IV SCH (09:01)
[2022-09-05] MEDS: METOPROLOL SUCCINATE (ER) 25 MG TAB.ER.24H PO SCH (09:01)
[2022-09-05] MEDS: LOSARTAN 25 MG TAB PO SCH (09:01)
[2022-09-05] MEDS: APIXABAN 5 MG TAB PO SCH (09:02)
[2022-09-05] MEDS: ALPRAZolam 0.25 MG TAB PO SCH (09:02)
[2022-09-05] MEDS: IPRATROPIUM-ALBUTEROL 3 ML NEB INHALATION SCH ×2 (09:06→12:22)
--- NOTE | 2022-09-05 10:34 | P.PN ---
Subjective Progress Note Date: 09/05/22 HISTORY OF PRESENT ILLNESS: This is a 72-year-old female with a history of atrial fibrillation with previous ablation and PVI. Patient was found every current palpitations with documented atrial tachycardia. She underwent ablation with Dr. Suarez. The patient was examined this morning. She is complaining of shortness of breath. She has bilateral crackles. Per Dr. Suarez, patient had crackles yesterday before the procedure as well. No history of CHF. She is on nasal cannula at 2L. 09/04/2022 Patient developed respiratory distress yesterday evening. She was given a dose of IV Lasix per pulmonary and placed on a BiPAP. She was transferred to [facility]. Patient examined this morning at the bedside. Patient's family is present. Patient states her breathing has improved since yesterday. She underwent chest CT which was negative for PE. Chest x-ray this morning reveals increasing now small to moderate right and ongoing left pleural effusions with adjacent atelectasis and/or consolidation 09/05/2022 Echocardiogram completed yesterday reveals normal LV systolic function with out segmental wall motion abnormalities. Biatrial enlargement normal RV size and function. No pericardial effusion. Patient examined this morning at the bedside. She denies chest pain or pressure. Denies SOB. She remains on oxygen this morning. She has been out of bed and ambulating. PHYSICAL EXAM: VITAL SIGNS: Reviewed. GENERAL: Well-developed in no acute distress. NECK: Supple. No JVD or thyromegaly LUNGS: Respirations even and unlabored. Lungs with crackles at bilateral bases, right worse than left, improved from yesterday. HEART: Regular rate and rhythm. S1 and S2 heard. EXTREMITIES: Normal range of motion. No clubbing or cyanosis. Peripheral pulses intact. No lower extremity edema ASSESSMENT: Atrial tachycardia, status post ablation History of atrial fibrillation with previous ablation and PVI Shortness of breath secondary to pulmonary edema Bilateral pleural effusions Anxiety PLAN: Discontinue IV Lasix Begin oral lasix 40mg daily Wean oxygen as tolerated Possible discharge home this afternoon Nurse practitioner note has been reviewed by physician. Signing provider agrees with the documented findings, assessment, and plan of care. Objective - Vital Signs Vital signs: Vital Signs Temp 98.3 F 09/04/22 20:00 Pulse 63 09/05/22 04:00 Resp 20 09/05/22 04:00 BP 116/60 09/05/22 04:00 Pulse Ox 97 09/05/22 04:00 FiO2 50 09/03/22 20:14 Intake & Output 09/04/22 09/05/22 09/05/22 18:59 06:59 18:59 Intake Total 354 Output Total 900 Balance -546 Weight 65.9 kg Intake: Oral 354 Output: Urine 900 Other: Voiding Method Toilet - Labs CBC & Chem 7: 09/04/22 10:27 09/03/22 16:46
--- NOTE | 2022-09-05 11:38 | XR ---
EXAMINATION TYPE: XR chest 2V DATE OF EXAM: 09/05/2022 COMPARISON: 09/04/2022 HISTORY: Shortness of breath TECHNIQUE: Frontal and lateral views of the chest are obtained. FINDINGS: Scattered senescent parenchymal changes noted. Hyperinflation compatible with COPD. Small bilateral pleural effusions without evidence for overt failure. Overall appearance of the chest relative to the prior study. Heart size is stable. Mediastinal structures are stable and grossly unremarkable. No evidence for hilar prominence. Degenerative changes dorsal spine. IMPRESSION: 1. Small bilateral pleural effusions without evidence for overt failure. Overall appearance of the ch est relative to the prior study.
--- NOTE | 2022-09-05 11:56 | P.PN ---
Subjective Progress Note Date: 09/05/22 HISTORY OF PRESENT ILLNESS This is a 72-year-old female with past medical history of chronic atrial fibrillation with history of previous ablation and PVI, hypertension, hyperlipidemia, generalized anxiety disorder and panic disorder. Patient was brought into the hospital by Dr. Suarez and underwent cardiac ablation on 09/02. The following day, patient developed shortness of breath and consult was added for pulmonary medicine and last evening consult was added for our services for medical management. Patient states that she felt she could not breathe yesterday she has had difficulty breathing for the past 3 weeks. With the shortness of breath she also had some chest pain all over her chest and radiated up into her neck. Patient describes feeling strangulating and thought she was "going to ." She did have some improvement with BiPAP. She also states that Xanax is helping her as well. Patient was started on IV Lasix with good urine output, and DuoNeb treatments.. Patient underwent CTA of the chest last evening which showed no evidence of pulmonary embolism. Pleural effusions and basilar infiltrates and atelectasis. This probably relates to chronic chronic congestive heart failure. A repeat chest x-ray this morning revealed increasing now small to moderate right and ongoing small left pleural effusions with adjacent atelectasis and/or consolidation. Patient has been afebrile, heart rate 94, cardiac specialist sinus rhythm, blood pressure 109/69, pulse ox 100% on 4 L nasal cannula. Laboratory studies performed yesterday revealed normal electrolytes and renal function. AST 65 and ALT 72. Pro-calcitonin 0.04. ProBNP 1020 09/05: Patient states that she is feeling much better today and she slept well last night. She has been up and walking. She does have some sinus congestion but breathing is improved. She is on humidified oxygen at 4 L nasal cannula with pulse ox of 97%. She is reaching 1500 ML's on incentive spirometry. Patient remains afebrile, heart rate in the 60s, blood pressure 120/66. IV Lasix transitioned to oral. Echocardiogram reveals normal LV systolic function. No pericardial effusion. Repeat chest x-ray reveals small bilateral pleural effusions without evidence of overt failure. Overall appearance of the chest relative to prior study. Plan to wean patient off oxygen today, continue to increase activity. Patient to have follow-up in the office in one week. REVIEW OF SYSTEMS Constitutional: No fever, no chills, no night sweats. No weight change. No weakness, fatigue or lethargy. No daytime sleepiness. EENT: No headache. No blurred vision or double vision, no loss of vision. No loss of Hearing, no ringing in the ears, no dizziness. No nasal drainage or congestion. No epistaxis. No sore throat. Lungs: No shortness of breath, cough, no sputum production. No wheezing. Cardiovascular: No chest pain, no lower extremity edema. No palpitations. No paroxysmal nocturnal dyspnea. No orthopnea. No lightheadedness or dizziness. No syncopal episodes. Abdominal: No abdominal pain. No nausea, vomiting. No diarrhea. No constipation. No bloody or tarry stools. No loss of appetite. Genitourinary: No dysuria, increased frequency, urgency. No urinary retention. Musculoskeletal: No myalgias. No muscle weakness, no gait dysfunction, no frequent falls. No back pain. No neck pain. Integumentary: No wounds, no lesions. No rash or pruritus. No unusual bruising. No change in hair or nails. Neurologic: No aphasia. No facial droop. No change in mentation. No head injury. No headache. No paralysis. No paresthesia. Psychiatric: No depression. No anxiety. No mood swings. Endocrine: No abnormal blood sugars. No weight change. No excessive sweating or thirst. No cold intolerance. PHYSICAL EXAMINATION Gen: This is a 72-year-old female. She is resting in bed and appears to be comfortable at rest. No acute respiratory distress noted. Family members are at bedside. HEENT: Head is atraumatic, normocephalic. Pupils equal, round. Sclerae is anicteric. NECK: Supple. No JVD. No lymphadenopathy. No thyromegaly. LUNGS: Few crackles at the bases. No wheezes or rhonchi. No intercostal retractions. HEART: First heart sound is depressed, second heart sound is normal, regular, no murmur. ABDOMEN: Soft. Bowel sounds are present. No masses. No tenderness. EXTREMITIES: No pedal edema. No calf tenderness. Dorsalis pedis +2 bilaterally NEUROLOGICAL: Patient is awake, alert and oriented x3. Cranial nerves 2 through 12 are grossly intact. ASSESSMENT AND PLAN 1. Acute hypoxic respiratory failure secondary to pulmonary edema, requiring oxygen therapy including BiPAP. Pulmonary embolism was ruled out by CTA. Patient is continued on IV Lasix 40 mg daily transitioned to oral, Toprol-XL, DuoNeb treatment 4 times daily. Patient to be weaned off oxygen today. 2. Chronic persistent atrial fibrillation status post ablation. Patient is in a sinus rhythm. Continue eliquis 5 mg twice daily, flecainide 50 mg every 12 hours, Toprol-XL 25 mg daily. 3. Generalized anxiety disorder. Continue patient on Xanax or 0.5 mg twice daily. 4. Hypertension. Continue losartan 75 mg daily, Toprol-XL 25 mg daily. 5. GI prophylaxis. Protonix. 6. DVT prophylaxis. Eliquis. DISCHARGE PLAN Return home. Impression and plan of care have been directed as dictated by the signing physi cian. Sulema Calabrese nurse practitioner acting as scribe for signing physician. Objective - Vital Signs Vital signs: Vital Signs Temp 98.3 F 09/04/22 20:00 Pulse 63 09/05/22 04:00 Resp 20 09/05/22 07:45 BP 116/60 09/05/22 04:00 Pulse Ox 97 09/05/22 04:00 FiO2 50 09/03/22 20:14 Intake & Output 09/04/22 09/05/22 09/05/22 18:59 06:59 18:59 Intake Total 354 Output Total 900 Balance -546 Weight 65.9 kg Intake: Oral 354 Output: Urine 900 Other: Voiding Method Toilet - Labs CBC & Chem 7: 09/04/22 10:27 09/03/22 16:46
[2022-09-05 12:25] LABS: Calcium 9.8 mg/dL (8.4-10.2); Potassium 4.3 mmol/L (3.5-5.1)
[2022-09-05 12:32] VITALS: PULSE 63
--- NOTE | 2022-09-06 02:46 | PN ---
PROGRESS NOTE DATE OF SERVICE: 09/05/2022 SUBJECTIVE: This is a 72-year-old female who complained of shortness of breath following an ablation. She was found to have congestive heart failure with bilateral pleural effusions. She responded very nicely to BiPAP therapy and IV Lasix. The patient is doing well. She is on room air. She may be discharged home today. PHYSICAL EXAMINATION: VITAL SIGNS: Current vital signs are reviewed. Her respiratory rate is 12. Her heart rate is 63, her blood pressure is 114/72, her saturations on room air are 96%. Her temperature is normal. GENERAL: She appears in no acute distress. Looks well. HEENT: Examination is grossly unremarkable. NECK: Supple. Full range of motion. No adenopathy. Neck veins are flat. CARDIOVASCULAR: Examination reveals regular rhythm and rate. Heart rate in mid 70s. LUNGS: Reveal scattered crackles, but much improved. There are no wheezes or rhonchi. ABDOMEN: Soft. EXTREMITIES: Intact. No cyanosis, clubbing, or edema. SKIN: Without rash. NEUROLOGIC: Examination is brief, but nonfocal. LABS: Sodium 138, potassium 4.3, chloride 97, CO2 of 31, anion gap is 10, BUN 26, creatinine 1. ASSESSMENT: 1. Recent development of shortness of breath, secondary to congestive heart failure, and bilateral large pleural effusions, improved. 2. History of atrial fibrillation with recent ablation. 3. History of hypertension. 4. History of cerebrovascular accident. 5. History of sleep apnea syndrome, on CPAP. 6. History of kidney stones. PLAN: The patient is being evaluated for possible discharge. She is on room air. Saturations are excellent. The chest x-ray shows small bilateral pleural effusions. The patient's chest x-ray is much improved. No additional recommendations are made. We will continue to follow. Prognosis is thought to be good. The patient will see me in the office post discharge. MMODL / IJN: [id number] /
[2022-09-06] MEDS ORDERED: FUROSEMIDE 40 MG TAB PO SCH (09:00)
== END 2022-09-05 13:06 | disposition home or self-care (01) ==
LOC: CATHEP 12:08 → 6NMEDSUR 19:38 → 3SCARD 09-03 20:36 → CATHEP 09-04 09:18 → 3SCARD 09-04 09:18
PROVIDERS: ADMIT Internal Medicine Clinical Cardiac Electrophysiology; ATTEND Internal Medicine Clinical Cardiac Electrophysiology
DX: I47.1 Supraventricular tachycardia (principal); I48.19 Other persistent atrial fibrillation; J96.01 Acute respiratory failure with hypoxia; J98.11 Atelectasis; I11.0 Hypertensive heart disease with heart failure; I50.9 Heart failure, unspecified; J90 Pleural effusion, not elsewhere classified; E78.5 Hyperlipidemia, unspecified; G47.30 Sleep apnea, unspecified; Z86.73 Personal history of transient ischemic attack (TIA), and cerebral infarction without residual deficits; E16.2 Hypoglycemia, unspecified; F41.1 Generalized anxiety disorder; Z87.442 Personal history of urinary calculi; Z98.890 Other specified postprocedural states; F41.0 Panic disorder [episodic paroxysmal anxiety]; Z87.891 Personal history of nicotine dependence; Z80.1 Family history of malignant neoplasm of trachea, bronchus and lung; Z82.3 Family history of stroke; Z79.01 Long term (current) use of anticoagulants; Z79.899 Other long term (current) drug therapy
CPT/HCPCS: 94660; 94640 ×5; 94760 ×2; 93306; 97161; 93623; 93662; 93653; 93655; 83880; 80053; 80048; 85652; 85025; 84145; 71046 ×3; 71275; G0378 ×2; C1759; C1894; C1769 ×3; C1760; C1730 ×2; C1731; C1893; C1732; J2250; J1644 ×3; J1940 ×3; J2001 ×2; J3010; J2704; Q9967

== ENCOUNTER 2023-02-23 12:33 | Inpatient (IN) | payer MEDICARE, BC ==
[2023-02-23] MEDS ORDERED: ACETAMINOPHEN TAB 500 MG TAB PO STA (13:14)
[2023-02-23] MEDS ORDERED: ALBUTEROL HFA INHALER INHALATION STA (13:14)
--- NOTE | 2023-02-23 13:16 | ED ---
General Adult HPI - General Chief complaint: Upper Respiratory Infection Stated complaint: Cough and congestion Time Seen by Provider: 02/23/23 12:43 Source: patient, family, RN notes reviewed Mode of arrival: ambulatory Limitations: no limitations - History of Present Illness Initial comments: Patient is a pleasant 73-year-old female presenting to the emergency Department with cough and congestion. Onset of symptoms was just a day or 2 ago. Patient does have chest and sinus congestion. Patient does have occasional cough. Patient feels a little short of breath. No leg pain or leg swelling. No history of similar symptoms previously. Patient does have subjective fevers. Patient does have history of CHF however does not feel similar to that. No chest pain. - Related Data Home Medications Medication Instructions Recorded Confirmed Apixaban [Eliquis] 5 mg PO BID 03/23/19 02/23/23 Temazepam 30 mg PO HS PRN 03/23/19 02/23/23 ALPRAZolam [Xanax] 0.25 mg PO DAILY PRN 11/19/21 02/23/23 Losartan [Cozaar] 75 mg PO DAILY 11/19/21 02/23/23 Pregabalin [Lyrica] 150 mg PO TID 11/19/21 02/23/23 Metoprolol Succinate [Toprol XL] 12.5 mg PO DAILY 09/02/22 02/23/23 Flecainide Acetate [Tambocor] 100 mg PO Q12H 02/23/23 02/23/23 Rosuvastatin [Crestor] 10 mg PO HS 02/23/23 02/23/23 Previous Rx's Medication Instructions Recorded Furosemide [Lasix] 40 mg PO DAILY #90 tablet 09/05/22 Allergies Allergy/AdvReac Type Severity Reaction Status Date / Time prednisone Allergy Rash/Hives/ Verified 02/23/23 14:03 itching Review of Systems ROS Statement: Those systems with pertinent positive or pertinent negative responses have been documented in the HPI. ROS Other: All systems not noted in ROS Statement are negative. Constitutional: Reports: as per HPI, chills Eyes: Denies: eye pain ENT: Reports: congestion Respiratory: Reports: as per HPI, cough, dyspnea Cardiovascular: Denies: chest pain Endocrine: Reports: fatigue Gastrointestinal: Denies: abdominal pain Genitourinary: Denies: urgency Musculoskeletal: Denies: back pain Skin: Denies: rash Neurological: Denies: weakness Past Medical History Past Medical History: Atrial Fibrillation, CVA/TIA, Hypertension, Sleep Apnea/CPAP/BIPAP Additional Past Medical History / Comment(s): See Dr Suarez's H&P,SOB, uses cpap,hypoglycemia,kidney stones,TIAs x2-"my brain feels funny" History of Any Multi-Drug Resistant Organisms: None Reported Past Surgical History: Cardiac Ablation Additional Past Surgical History / Comment(s): Colonoscopy; kidney stone removal, exp. lap., cardioversion x4 Past Anesthesia/Blood Transfusion Reactions: No Reported Reaction Additional Past Anesthesia/Blood Transfusion Reaction / Comment(s): heart rate fell very low with cardiac ablation and had trouble coming out of anesthesia, had paralytic before being sedated with kidney stone removal yrs ago Past Psychological History: Anxiety, Panic Disorder Smoking Status: Former smoker Past Alcohol Use History: Rare Past Drug Use History: None Reported - Past Family History Father Family Medical History: Cancer Additional Family Medical History / Comment(s): lung Mother Additional Family Medical History / Comment(s): aneurysm brain stem General Exam Limitations: no limitations General appearance: alert, in no apparent distress Head exam: Present: atraumatic, normocephalic Eye exam: Present: normal appearance ENT exam: Present: normal exam Neck exam: Present: normal inspection Respiratory exam: Present: rhonchi Cardiovascular Exam: Present: regular rate, normal rhythm GI/Abdominal exam: Present: soft. Absent: tenderness Extremities exam: Present: normal inspection. Absent: pedal edema, calf tenderness Neurological exam: Present: alert Psychiatric exam: Present: normal affect, normal mood Skin exam: Present: normal color Course Vital Signs 02/23/23 02/23/23 02/23/23 12:38 13:34 14:00 Temperature 100 F H Pulse Rate 117 H 66 64 Respiratory 24 22 22 Rate Blood Pressure 108/74 122/69 111/68 O2 Sat by Pulse 93 L 94 L 94 L Oximetry 02/23/23 02/23/23 02/23/23 14:02 14:10 14:30 Temperature Pulse Rate 110 H 110 H 67 Respiratory 22 Rate Blood Pressure 110/69 O2 Sat by Pulse 96 Oximetry - Reevaluation(s) Reevaluation #1: 02/23/23 14:36 There is concern for sepsis diagnosed at 1430. Blood culture and lactic acid and IV antibiotic's involvement ordered. Medical Decision Making - Medical Decision Making Was pt. sent in by a medical professional or institution (, [facility], ASSISTED LIVING ADMINISTRATOR, urgent care, hospital, or intermediate...) When possible be specific @ -No Did you speak to anyone other than the patient for history (EMS, parent, family, police, friend...)? What history was obtained from this source @ -Patient does have 2 family members including daughter present who help provide history as well as patient's previous history of pneumonia Did you review nursing and triage notes (agree or disagree)? Why? @ -I reviewed and agree with nursing and triage notes Were old charts reviewed (outside hosp., previous admission, EMS record, old EKG, old radiological studies, urgent care reports/EKG's, intermediate records)? Report findings @ -No old charts were reviewed Differential Diagnosis (chest pain, altered mental status, abdominal pain women, abdominal pain men, vaginal bleeding, weakness, fever, dyspnea, syncope, headache, dizziness, GI bleed, back pain, seizure, CVA, palpatations, mental health)? @ -Differential Dyspnea: Coronary syndrome, arrhythmia, tamponade, asthma, COPD, pulmonary embolism, pneumonia, pneumothorax, pulmonary effusion, anaphylaxis, diabetic ketoacidosis, flailed chest, pulmonary contusion, diaphragmatic rupture, anemia, neuromuscular, this is not meant to be an all-inclusive list. EKG interpreted by me (3pts min.). @ -As above X-rays interpreted by me (1pt min.). @ -Chest x-ray shows large right lower lobe infiltrate CT interpreted by me (1pt min.). @ -None done U/S interpreted by me (1pt. min.). @ -None done What testing was considered but not performed or refused? (CT, X-rays, U/S, labs)? Why? @ -None What meds were considered but not given or refused? Why? @ -None Did you discuss the management of the patient with other professionals (professionals i.e. [facility] Jim, ASSISTED LIVING ADMINISTRATOR, lab, RT, psych nurse, social secretary, motorman/woman, teacher, protection officer, case sealer)? Give summary @ -Case discussed with Dr. Raymond who is familiar with this patient and will admit Was smoking cessation discussed for >3mins.? @ -No Was critical care preformed (if so, how long)? @ -32 minutes critical care time Were there social determinants of health that impacted care today? How? (Homelessness, low income, unemployed, alcoholism, drug addiction, transportation, low edu. Level, literacy, decrease access to med. care, [place] [facility], re hab)? @ -No Was there de-escalation of care discussed even if they declined (Discuss DNR or withdrawal of care, Hospice)? DNR status @ -No What co-morbidities impacted this encounter? (DM, HTN, Smoking, COPD, CAD, Cancer, CVA, ARF, Chemo, Hep., AIDS, mental health diagnosis, sleep apnea, morbid obesity)? @ -None Was patient admitted / discharged? Hospital course, mention meds given and route, prescriptions, significant lab abnormalities, going to OR and other pertinent info. @ -Patient reevaluated without significant change. Patient and family are updated on results and plan. Patient will be admitted for IV antibiotics. Patient does meet sepsis criteria Undiagnosed new problem with uncertain prognosis? @ -No Drug Therapy requiring intensive monitoring for toxicity (Heparin, Nitro, Insulin, Cardizem)? @ -No Were any procedures done? @ -No Diagnosis/symptom? @ -Pneumonia with sepsis Acute, or Chronic, or Acute on Chronic? @ -Acute Uncomplicated (without systemic symptoms) or Complicated (systemic symptoms)? @ -Acute with sepsis Side effects of treatment? @ -No Exacerbation, Progression, or Severe Exacerbation? @ -No Poses a threat to life or bodily function? How? (Chest pain, [place], [place], pneumonia, PE, COPD, DKA, ARF, appy, cholecystitis, CVA, Diverticulitis, Homicidal, Suicidal, threat to staff... and all critical care pts) @ -Threat with sepsis associated with pneumonia and hypoxia - Lab Data Result diagrams: 02/23/23 13:49 02/23/23 13:49 Lab Results 02/23/23 02/23/23 02/23/23 Range/Units 12:48 13:49 13:49 WBC 6.8 (3.8-10.6) k/uL RBC 3.74 L (3.80-5.40) m/uL Hgb 11.9 (11.4-16.0) gm/dL Hct 35.1 (34.0-46.0) % MCV 93.6 (80.0-100.0) fL MCH 31.7 (25.0-35.0) pg MCHC 33.9 (31.0-37.0) g/dL RDW 12.6 (11.5-15.5) % Plt Count 183 (150-450) k/uL MPV 8.1 Neutrophils % 86 % Lymphocytes % 9 % Monocytes % 2 % Eosinophils % 2 % Basophils % 0 % Neutrophils # 5.8 (1.3-7.7) k/uL Lymphocytes # 0.6 L (1.0-4.8) k/uL Monocytes # 0.2 (0-1.0) k/uL Eosinophils # 0.1 (0-0.7) k/uL Basophils # 0.0 (0-0.2) k/uL Sodium 132 L (137-145) mmol/L Potassium 3.9 (3.5-5.1) mmol/L Chloride 99 (98-107) mmol/L Carbon Dioxide 28 (22-30) mmol/L Anion Gap 5 mmol/L BUN 16 (7-17) mg/dL Creatinine 0.78 (0.52-1.04) mg/dL Est GFR (CKD-EPI)AfAm 87 (>60 ml/min/1.73 sqM) Est GFR (CKD-EPI)NonAf 75 (>60 ml/min/1.73 sqM) Glucose 100 H (74-99) mg/dL Plasma Lactic Acid Filiberto (0.7-2.0) mmol/L Calcium 8.5 (8.4-10.2) mg/dL Total Bilirubin 0.6 (0.2-1.3) mg/dL AST 38 H (14-36) U/L ALT 42 H (4-34) U/L Alkaline Phosphatase 74 (38-126) U/L Total Protein 6.4 (6.3-8.2) g/dL Albumin 3.8 (3.5-5.0) g/dL Influenza Type A (PCR) Not Detected (Not Detectd) Influenza Type B (PCR) Not Detected (Not Detectd) RSV (PCR) Not Detected (Not Detectd) SARS-CoV-2 (PCR) Not Detected (Not Detectd) 02/23/23 Range/Units 13:49 WBC (3.8-10.6) k/uL RBC (3.80-5.40) m/uL Hgb (11.4-16.0) gm/dL Hct (34.0-46.0) % MCV (80.0-100.0) fL MCH (25.0-35.0) pg MCHC (31.0-37.0) g/dL RDW (11.5-15.5) % Plt Count (150-450) k/uL MPV Neutrophils % % Lymphocytes % % Monocytes % % Eosinophils % % Basophils % % Neutrophils # (1.3-7.7) k/uL Lymphocytes # (1.0-4.8) k/uL Monocytes # (0-1.0) k/uL Eosinophils # (0-0.7) k/uL Basophils # (0-0.2) k/uL Sodium (137-145) mmol/L Potassium (3.5-5.1) mmol/L Chloride (98-107) mmol/L Carbon Dioxide (22-30) mmol/L Anion Gap mmol/L BUN (7-17) mg/dL Creatinine (0.52-1.04) mg/dL Est GFR (CKD-EPI)AfAm (>60 ml/min/1.73 sqM) Est GFR (CKD-EPI)NonAf (>60 ml/min/1.73 sqM) Glucose (74-99) mg/dL Plasma Lactic Acid Filiberto 1.1 (0.7-2.0) mmol/L Calcium (8.4-10.2) mg/dL Total Bilirubin (0.2-1.3) mg/dL AST (14-36) U/L ALT (4-34) U/L Alkaline Phosphatase (38-126) U/L Total Protein (6.3-8.2) g/dL Albumin (3.5-5.0) g/dL Influenza Type A (PCR) (Not Detectd) Influenza Type B (PCR) (Not Detectd) RSV (PCR) (Not Detectd) SARS-CoV-2 (PCR) (Not Detectd) Critical Care Time Critical Care Time: Yes Total Critical Care Time: 32 Disposition Clinical Impression: Pneumonia, Sepsis Disposition: ADMITTED IP TO THIS HOSP Condition: Serious Is patient prescribed a controlled substance at d/c from ED?: No Time of Disposition: 14:38
--- NOTE | 2023-02-23 13:28 | XR ---
EXAMINATION TYPE: XR chest 2V DATE OF EXAM: 02/23/2023 COMPARISON: 09/05/2022 HISTORY: Shortness of breath TECHNIQUE: Frontal and lateral views of the chest are obtained. FINDINGS: Scattered senescent parenchymal changes noted. Hyperinflation compatible with COPD. Right lower lobe patchy infiltrate felt to reflect pneumonia. Correlate clinically and progress studi es are advised. Heart size is stable. Mediastinal structures are stable and grossly unremarkable. No evidence for hilar prominence. Degenerative changes dorsal spine. IMPRESSION: 1. Right lower lobe patchy infiltrate felt to reflect pneumonia. Correlate clinically and progress st udies are advised.
[2023-02-23] MEDS ORDERED: IPRATROPIUM-ALBUTEROL 3 ML NEB INHALATION STA (13:46)
[2023-02-23] MEDS: SODIUM CHLORIDE 0.9% 1,000 ML IV SCH (14:35)
[2023-02-23] MEDS ORDERED: AZITHROMYCIN 500 MG in SODIUM CHLORIDE 0.9% 250 ML IVPB STA (14:39)
[2023-02-23] MEDS ORDERED: PNEUMONIA PROTOCOL UTILIZED 1 EACH MISC PO PRN (14:39)
[2023-02-23 14:44] LABS: Basophils % (A) 0 %; Eosinophils # (A) 0.1 k/uL (0-0.7); Eosinophils % (A) 2 %; HCT 35.1 % (34.0-46.0); HGB 11.9 gm/dL (11.4-16.0); Lymphocytes # (A) 0.6 k/uL (1.0-4.8); Lymphocytes % (A) 9 %; MCH 31.7 pg (25.0-35.0); MCHC 33.9 g/dL (31.0-37.0); MCV 93.6 fL (80.0-100.0); Mean Platelet Volume 8.1; Monocytes # (A) 0.2 k/uL (0-1.0); Monocytes % (A) 2 %; Neutrophils # (A) 5.8 k/uL (1.3-7.7); Neutrophils % (A) 86 %; Platelet Count 183 k/uL (150-450); RBC 3.74 m/uL (3.80-5.40); RDW 12.6 % (11.5-15.5); WBC 6.8 k/uL (3.8-10.6)
[2023-02-23 15:17] LABS: Albumin 3.8 g/dL (3.5-5.0); Calcium 8.5 mg/dL (8.4-10.2); Potassium 3.9 mmol/L (3.5-5.1); Total Bilirubin 0.6 mg/dL (0.2-1.3); Total Protein 6.4 g/dL (6.3-8.2)
[2023-02-23] MEDS ORDERED: TEMAZEPAM 30 MG CAP PO PRN (15:52)
[2023-02-23] MEDS: PREGABALIN 75 MG CAP PO SCH ×2 (16:53→22:10)
[2023-02-23] MEDS: IPRATROPIUM-ALBUTEROL 3 ML NEB INHALATION PRN ×2 (19:35→22:27)
[2023-02-23] MEDS: ATORVASTATIN 20 MG TAB PO SCH (22:10)
[2023-02-23] MEDS: APIXABAN 5 MG TAB PO SCH (22:11)
[2023-02-23] MEDS: ALPRAZolam 0.25 MG TAB PO PRN (22:29)
[2023-02-23] MEDS: FLECAINIDE 50 MG TAB PO SCH (22:30)
[2023-02-24] MEDS: IPRATROPIUM-ALBUTEROL 3 ML NEB INHALATION PRN (03:47)
[2023-02-24] MEDS: SODIUM CHLORIDE 0.9% 1,000 ML IV SCH ×4 (05:30→23:06)
[2023-02-24] MEDS ORDERED: IPRATROPIUM-ALBUTEROL 3 ML NEB INHALATION PRN (07:43)
--- NOTE | 2023-02-24 07:48 | P.CNPUL ---
History of Present Illness Consult date: 02/24/23 Requesting physician: Alex Pal Reason for consult: pneumonia Chief complaint: Shortness of breath and cough History of present illness: I'm seeing this patient in new consultation today 02/24/2023 for possible right lower lobe pneumonia. Patient is a 73-year-old white female with past medical history of paroxysmal atrial fibrillation, previous cardiac ablation and cardioversion, TIAs, obstructive sleep apnea with CPAP use, hypertension, and minimal smoking history. Patient has followed with Dr. Moore in the office in the past, and did have a PFT which showed essentially normal lung function. Patient presented yesterday evening with chief complaint of shortness breath and congested cough starting approximately 3 days ago. Patient has also been intermittently febrile. She denies any chest pain, hemoptysis, heart palpitations, syncope, orthopnea. Patient is currently sitting up in bed, on 4 L nasal cannula, in no acute distress. Chest x-ray on arrival showed right lower lobe patchy infiltrates felt to reflect pneumonia. Patient's CBC on arrival shows a WBC count of 6.8, hemoglobin 11.9, hematocrit 35.1, platelets 183,000. Patient's BMP shows a sodium 132, potassium 3.9, chloride 99, serum CO2 28, BUN 16, creatinine 0.78, glucose 100. Patient's lactic acid level was 1.1. She was negative for influenza, RSV, COVID-19. Patient is currently receiving a course of Zithromax and ceftriaxone. Heart rhythm is irregular. She is anticoagulated on Eliquis. Vital signs are stable. Review of Systems REVIEW OF SYSTEMS: CONSTITUTIONAL: Denies any recent significant weight loss or weight gain. EYES: Denies change in vision. EARS, NOSE, MOUTH, THROAT: Denies headaches, denies sore throat. CARDIOVASCULAR: Denies chest pain, palpitations or syncopal episodes. RESPIRATORY: See HPI GASTROINTESTINAL: Denies change in appetite, abdominal pain, nausea and vomiting, or diarrhea GENITOURINARY: Denies hematuria, denies infections. MUSKULOSKELETAL: Denies pain, denies swelling. INTEGUMENTARY: Denies rash, denies eczema. NEUROLOGICAL: Denies recent memory loss, no recent seizure activity. PSYCHIATRIC: Denies anxiety, denies depression. HEMATOLOGIC/LYMPHATIC: Denies anemia, denies enlarged lymph node Past Medical History Past Medical History: Atrial Fibrillation, CVA/TIA, Hypertension, Sleep Apnea/CPAP/BIPAP Additional Past Medical History / Comment(s): See Dr Suarez's H&P,SOB, uses cpap,hypoglycemia,kidney stones,TIAs x2-"my brain feels funny" History of Any Multi-Drug Resistant Organisms: None Reported Past Surgical History: Cardiac Ablation Additional Past Surgical History / Comment(s): Colonoscopy; kidney stone removal, exp. lap., cardioversion x4 ablations x 2 Past Anesthesia/Blood Transfusion Reactions: Previous Problems w/ Anesthesia Additional Past Anesthesia/Blood Transfusion Reaction / Comment(s): heart rate fell very low with cardiac ablation and had trouble coming out of anesthesia, had paralytic before being sedated with kidney stone removal yrs ago Past Psychological History: Anxiety, Panic Disorder, PTSD Smoking Status: Former smoker Past Alcohol Use History: Rare Additional Past Alcohol Use History / Comment(s): quit smoking 1999 approx, social smoker. Past Drug Use History: None Reported - Past Family History Father Family Medical History: Cancer Additional Family Medical History / Comment(s): lung Mother Additional Family Medical History / Comment(s): aneurysm brain stem Medications and Allergies Home Medications Medication Instructions Recorded Confirmed Type Apixaban [Eliquis] 5 mg PO BID 03/23/19 02/23/23 History Temazepam 30 mg PO HS PRN 03/23/19 02/23/23 History ALPRAZolam [Xanax] 0.25 mg PO DAILY PRN 11/19/21 02/23/23 History Losartan [Cozaar] 75 mg PO DAILY 11/19/21 02/23/23 History Pregabalin [Lyrica] 150 mg PO TID 11/19/21 02/23/23 History Metoprolol Succinate [Toprol XL] 12.5 mg PO DAILY 09/02/22 02/23/23 History Furosemide [Lasix] 40 mg PO DAILY #90 tablet 09/05/22 02/23/23 Rx Flecainide Acetate [Tambocor] 100 mg PO Q12H 02/23/23 02/23/23 History Rosuvastatin [Crestor] 10 mg PO HS 02/23/23 02/23/23 History Allergies Allergy/AdvReac Type Severity Reaction Status Date / Time prednisone Allergy Rash/Hives/ Verified 02/23/23 14:03 itching Physical Exam Vitals: Vital Signs Temp Pulse Pulse Resp BP BP Pulse Ox 02/24/23 04:06 92 02/24/23 03:47 100 02/24/23 02:45 102 H 18 158/73 92 L 02/24/23 02:15 98.4 F 95 18 171/76 84 L 02/23/23 22:34 78 02/23/23 22:29 75 02/23/23 20:00 97.9 F 75 18 145/70 92 L 02/23/23 19:56 77 02/23/23 19:35 70 02/23/23 19:00 63 22 117/60 98 02/23/23 18:00 66 22 107/67 96 02/23/23 17:00 70 22 109/64 96 02/23/23 16:00 64 22 116/61 96 02/23/23 15:00 64 22 110/69 97 02/23/23 14:30 67 22 110/69 96 02/23/23 14:10 110 H 02/23/23 14:02 110 H 02/23/23 14:00 64 22 111/68 94 L 02/23/23 13:34 66 22 122/69 94 L 02/23/23 12:38 100 F H 117 H 24 108/74 93 L Intake and Output 02/23/23 02/24/23 02/24/23 22:59 06:59 14:59 Intake Total 390 Balance 390 Intake: Intake, IV Titration 390 Amount Sodium Chloride 0.9% 1, 390 000 ml @ 130 mls/hr IV . Q7H42M [facility] Rx#:[id number] Other: Voiding Method Toilet Weight 68.039 kg GENERAL EXAM: Alert, 73-year-old white female , comfortable in no apparent distress. HEAD: Normocephalic and atraumatic EYES: Normal reaction of pupils, equal size. NOSE: Clear with pink turbinates. THROAT: No erythema or exudates. NECK: No masses, no JVD. CHEST: No chest wall deformity. LUNGS: Equal air entry with diffuse rhonchi and scattered crackles throughout. On 4 L nasal cannula. No conversational dyspnea or accessory muscle use.. CVS: S1 and S2 normal with no audible murmur, irregular rhythm. No extra heart sounds ABDOMEN: No hepatosplenomegaly, active bowel sounds, no guarding or rigidity. SPINE: No scoliosis or deformity SKIN: No rashes CENTRAL NERVOUS SYSTEM: No focal deficits, tone is normal in all 4 extremities. EXTREMITIES: There is no peripheral edema, clubbing, or cyanosis. Peripheral pulses are intact. Results - Laboratory Findings CBC and BMP: 02/23/23 13:49 02/23/23 13:49 Abnormal lab findings: Abnormal Labs 02/23/23 04 13:49 13:49 RBC 3.74 L Lymphocytes # 0.6 L Sodium 132 L Glucose 100 H AST 38 H ALT 42 H - Diagnostic Findings Chest x-ray: image reviewed Assessment and Plan Assessment: Community-acquired pneumonia. Chest x-ray on arrival showed right lower lobe patchy infiltrates felt to reflect pneumonia. Acute hypoxic respiratory failure secondary to above. Currently on 4 L nasal cannula. History of paroxysmal atrial fibrillation, heart rate is currently irregular. She is anticoagulated on Eliquis. Patient has had previous cardiac ablation History of TIAs Obstructive sleep apnea with CPAP use Hypertension Ex-smoker Plan: Patient's medications, labs, chest x-ray reviewed Continue bronchodilators Continue antibiotics for community-acquired pneumonia Continue supplemental oxygen to maintain oxygen saturation 92% or greater Repeat chest x-ray in the morning Blood cultures are pending and sputum culture was ordered Obtain urine Legionella antigen Obtain 12-lead ECG We will continue to follow I have personally seen and examined the patient, performed the documentation and the assessment and plan as written. Number of minutes spent on the visit:20 This is a joint evaluation that was done along with the nurse practitioner. I saw the patient appeared I interviewed the patient. There is clearly a right lower lobe pneumonia and the follow-up chest x-ray from today on 02/24/2023 shows some further interval volume loss. This could be related to atelectasis. May be also progression of the pulmonary infiltrates. The patient is currently on Rocephin and Zithromax. Clinically she is feeling better patient is on room air oxygen. The plan is to check a pro-calcitonin level, continue Rocephin and Zithromax, cut down the IV fluids to KVO, provided incentive spirometer, collect sputum Gram stain and culture. She is currently in controlled atrial fibrillation. Cardiac medication be continued. Awaiting blood cultures. White cell count is not elevated. Will follow up this patient repeat chest x-ray in the morning and will make further decisions accordingly.Number of minutes spent on the visit:30 Time with Patient: Greater than 30
--- NOTE | 2023-02-24 08:29 | XR ---
EXAMINATION TYPE: XR chest 2V DATE OF EXAM: 02/24/2023 COMPARISON: Chest x-ray from yesterday and older studies. HISTORY: Pneumonia. TECHNIQUE: Frontal and lateral views of the chest are obtained. FINDINGS: There worsening right mid and lower lung opacities now silhouetting right hemidiaphragm. L eft lung remains clear. Small to tiny right pleural effusion redemonstrated on lateral view. The card iac silhouette size is stable and within normal limits. The osseous structures are demineralized. S urgical clips epigastric region are redemonstrated. IMPRESSION: Worsening right mid to lower lung acute infiltrate and/or atelectasis.
[2023-02-24] MEDS: FLECAINIDE 50 MG TAB PO SCH ×2 (08:57→19:33)
[2023-02-24] MEDS: FUROSEMIDE 40 MG TAB PO SCH (08:58)
[2023-02-24] MEDS: AZITHROMYCIN 500 MG TAB PO SCH (08:58)
[2023-02-24] MEDS: LOSARTAN 25 MG TAB PO SCH (08:58)
[2023-02-24] MEDS: APIXABAN 5 MG TAB PO SCH ×2 (08:58→19:33)
[2023-02-24] MEDS: ACETAMINOPHEN TAB 325 MG TAB PO PRN ×2 (08:58→19:33)
[2023-02-24] MEDS: PREGABALIN 75 MG CAP PO SCH ×3 (08:58→19:33)
[2023-02-24] MEDS ORDERED: METOPROLOL SUCCINATE (ER) 25 MG TAB.ER.24H PO SCH (09:00)
[2023-02-24] MEDS: IPRATROPIUM-ALBUTEROL 3 ML NEB INHALATION SCH ×4 (09:26→21:55)
--- NOTE | 2023-02-24 15:08 | P.HPIM ---
History of Present Illness H&P Date: 02/24/23 HISTORY OF PRESENT ILLNESS This is a 73-year-old female with past medical history of atrial tachycardia status post ablation and chronic atrial fibrillation with history of previous ablations and PVI, hypertension, hyperlipidemia, generalized anxiety disorder and panic disorder, obstructive sleep apnea, TIAs. Patient presented to the emergency center with cough and congestion going on for couple days. She complains of chest congestion and sinus congestion with occasional cough with a little shortness of breath. Also feeling fevers but no chest pain. EKG showed atrial fibrillation at a ventricular rate 133 bpm. Initial chest x-ray reveals right lower lobe patchy infiltrate felt to reflect pneumonia. Repeat chest x-ray reveals worsening right mid to lower lung acute infiltrate and/or atelectasis., Cardizem drip and initially admitted to the [facility] floor and then transferred to cardiac stepdown unit. Heart rate was initially in the 140s now running 110 to 120s on Cardizem drip at 5 mg per hour. Consults requested with pulmonary medicine and cardiology. REVIEW OF SYSTEMS Constitutional: No fever, no chills, no night sweats. No weight change. No weakness, fatigue or lethargy. No daytime sleepiness. EENT: No headache. No blurred vision or double vision, no loss of vision. No loss of Hearing, no ringing in the ears, no dizziness. No nasal drainage or congestion. No epistaxis. No sore throat. Lungs: No shortness of breath, cough, no sputum production. No wheezing. Cardiovascular: No chest pain, no lower extremity edema. No palpitations. No paroxysmal nocturnal dyspnea. No orthopnea. No lightheadedness or dizziness. No syncopal episodes. Abdominal: No abdominal pain. No nausea, vomiting. No diarrhea. No constipation. No bloody or tarry stools. No loss of appetite. Genitourinary: No dysuria, increased frequency, urgency. No urinary retention. Musculoskeletal: No myalgias. No muscle weakness, no gait dysfunction, no frequent falls. No back pain. No neck pain. Integumentary: No wounds, no lesions. No rash or pruritus. No unusual bruising. No change in hair or nails. Neurologic: No aphasia. No facial droop. No change in mentation. No head injury. No headache. No paralysis. No paresthesia. Psychiatric: No depression. No anxiety. No mood swings. Endocrine: No abnormal blood sugars. No weight change. No excessive sweating or thirst. No cold intolerance. MEDICAL HISTORY Chronic persistent atrial fibrillation Hypertension Hyperlipidemia Obstructive sleep apnea on CPAP TIA Generalized anxiety disorder and panic disorder Osteopenia of the right hip SURGICAL HISTORY Cardiac ablation Colonoscopy 2016 Kidney stone removal Exploratory laparotomy SOCIAL HISTORY Patient has history of smoking and quit in 1999, rare alcohol use, no illicit drug use. FAMILY HISTORY Father at age 54 from lung cancer. Mother at age 69 from brain aneurysm. Patient has 6 brothers and one brother in an accident and one from pneumonia. Other living brothers have hypertension. Patient has 2 sisters, 1 son and 2 daughters with no major medical problems. PHYSICAL EXAMINATION Gen: This is a 72-year-old female. She is resting in bed and appears to be comfortable at rest. No acute respiratory distress noted. Family members are at bedside. HEENT: Head is atraumatic, normocephalic. Pupils equal, round. Sclerae is anicteric. NECK: Supple. No JVD. No lymphadenopathy. No thyromegaly. LUNGS: Few crackles at the bases. Scattered rhonchi. No intercostal retractions. HEART: First heart sound is depressed, second heart sound is normal, irregular, no murmur. ABDOMEN: Soft. Bowel sounds are present. No masses. No tenderness. EXTREMITIES: No pedal edema. No calf tenderness. Dorsalis pedis +2 bilaterally NEUROLOGICAL: Patient is awake, alert and oriented x3. Cranial nerves 2 through 12 are grossly intact. ASSESSMENT AND PLAN 1. Acute hypoxic respiratory failure secondary to pneumonia, requiring oxygen therapy. Continue patient on oxygen therapy. 2. Pneumonia right lower lobe. Consult with pulmonary medicine appreciated. Continue antibiotics the form of ceftriaxone and azithromycin, continue patient on DuoNeb treatments 4 times daily and as needed. Repeat chest x-ray has been ordered by pulmonary medicine. 3. Chronic persistent atrial fibrillation status post ablation presenting with RVR. Patient is on Cardizem drip 5 mg per hour, continue, eliquis 5 mg twice daily, flecainide 100 mg every 12 hours, Toprol-XL 12.5 mg daily, cardiology consult requested. 4. Generalized anxiety disorder. Continue patient on Xanax or 0.25 mg twice daily. 5. Hypertension. Continue losartan 75 mg daily, Toprol-XL 12.5 mg daily. 6. History of TIA. Continue eliquis, statin for secondary prevention 7. Hyperlipidemia. Continue Crestor 10 mg at bedtime. 8. Obstructive sleep apnea on CPAP. 9. GI prophylaxis. Protonix. 10. DVT prophylaxis. Eliquis. Patient admitted to the hospital for a minimum of 2 night stay. DISCHARGE PLAN Return home. Impression and plan of care have been directed as dictated by the signing physician. Sulema Calabrese nurse practitioner acting as scribe for signing physician. Past Medical History Past Medical History: Atrial Fibrillation, CVA/TIA, Hypertension, Sleep Apnea/CPAP/BIPAP Additional Past Medical History / Comment(s): See Dr Suarez's H&P,SOB, uses cpap,hypoglycemia,kidney stones,TIAs x2-"my brain feels funny" History of Any Multi-Drug Resistant Organisms: None Reported Past Surgical History: Cardiac Ablation Additional Past Surgical History / Comment(s): Colonoscopy; kidney stone removal, exp. lap., cardioversion x4 ablations x 2 Past Anesthesia/Blood Transfusion Reactions: Previous Problems w/ Anesthesia Additional Past Anesthesia/Blood Transfusion Reaction / Comment(s): heart rate fell very low with cardiac ablation and had trouble coming out of anesthesia, had paralytic before being sedated with kidney stone removal yrs ago Past Psychological History: Anxiety, Panic Disorder, PTSD Smoking Status: Former smoker Past Alcohol Use History: Rare Additional Past Alcohol Use History / Comment(s): quit smoking 1999, social smoker. Past Drug Use History: None Reported - Past Family History Father Family Medical History: Cancer Additional Family Medical History / Comment(s): lung Mother Additional Family Medical History / Comment(s): aneurysm brain stem Medications and Allergies Home Medications Medication Instructions Recorded Confirmed Type Apixaban [Eliquis] 5 mg PO BID 03/23/19 02/23/23 History Temazepam 30 mg PO HS PRN 03/23/19 02/23/23 History ALPRAZolam [Xanax] 0.25 mg PO DAILY PRN 11/19/21 02/23/23 History Losartan [Cozaar] 75 mg PO DAILY 11/19/21 02/23/23 History Pregabalin [Lyrica] 150 mg PO TID 11/19/21 02/23/23 History Metoprolol Succinate [Toprol XL] 12.5 mg PO DAILY 09/02/22 02/23/23 History Furosemide [Lasix] 40 mg PO DAILY #90 tablet 09/05/22 02/23/23 Rx Flecainide Acetate [Tambocor] 100 mg PO Q12H 02/23/23 02/23/23 History Rosuvastatin [Crestor] 10 mg PO HS 02/23/23 02/23/23 History Allergies Allergy/AdvReac Type Severity Reaction Status Date / Time prednisone Allergy Rash/Hives/ Verified 02/23/23 14:03 itching Physical Exam Vitals: Vital Signs Temp Pulse Pulse Resp BP BP BP 02/24/23 13:19 98.2 F 118 H 20 87/54 91/60 02/24/23 12:58 90 02/24/23 12:49 90 02/24/23 09:46 90 02/24/23 09:27 90 02/24/23 07:33 98.6 F 85 20 168/77 02/24/23 04:06 92 02/24/23 03:47 100 02/24/23 02:45 102 H 18 158/73 02/24/23 02:15 98.4 F 95 18 171/76 02/23/23 22:34 78 02/23/23 22:29 75 02/23/23 20:00 97.9 F 75 18 145/70 02/23/23 19:56 77 02/23/23 19:35 70 02/23/23 19:00 63 22 117/60 02/23/23 18:00 66 22 107/67 02/23/23 17:00 70 22 109/64 02/23/23 16:00 64 22 116/61 02/23/23 15:00 64 22 110/69 Pulse Ox 02/24/23 13:19 92 L 02/24/23 12:58 02/24/23 12:49 02/24/23 09:46 02/24/23 09:27 02/24/23 07:33 92 L 02/24/23 04:06 02/24/23 03:47 02/24/23 02:45 92 L 02/24/23 02:15 84 L 02/23/23 22:34 02/23/23 22:29 02/23/23 20:00 92 L 02/23/23 19:56 02/23/23 19:35 02/23/23 19:00 98 02/23/23 18:00 96 02/23/23 17:00 96 02/23/23 16:00 96 02/23/23 15:00 97 Intake and Output 02/23/23 02/24/23 02/24/23 22:59 06:59 14:59 Intake Total 390 Balance 390 Intake: Intake, IV Titration 390 Amount Sodium Chloride 0.9% 1, 390 000 ml @ 130 mls/hr IV . [id number] [facility] Rx#:[id number] Other: Voiding Method Toilet # Voids 1 Weight 68.039 kg Results CBC & Chem 7: 02/23/23 13:49 02/23/23 13:49 Labs: Abnormal Lab Results - Last 24 Hours (Table) 02/23/23 02/23/23 Range/Units 13:49 13:49 RBC 3.74 L (3.80-5.40) m/uL Lymphocytes # 0.6 L (1.0-4.8) k/uL Sodium 132 L (137-145) mmol/L Glucose 100 H (74-99) mg/dL AST 38 H (14-36) U/L ALT 42 H (4-34) U/L Thrombosis Risk Factor Assmnt - Choose All That Apply Each Factor Represents 1 point: Serious lung disease incl. pneumonia (< 1month) Other Risk Factors: Yes Each Risk Factor Represents 2 Points: Age 61-74 years Thrombosis Risk Factor Assessment Total Risk Factor Score: 3 Thrombosis Risk Factor Assessment Level: Moderate Risk
[2023-02-24] MEDS: DILTIAZEM 125 MG in SODIUM CHLORIDE 0.9% 100 ML IV SCH (15:15)
[2023-02-24] MEDS: ALPRAZolam 0.25 MG TAB PO PRN (16:28)
[2023-02-24] MEDS: ATORVASTATIN 20 MG TAB PO SCH (19:33)
[2023-02-24] MEDS ORDERED: TEMAZEPAM 15 MG CAP PO PRN (21:09)
[2023-02-24] MEDS: guaiFENesin 600 MG TABLET.ER PO SCH (21:32)
[2023-02-25] MEDS: IPRATROPIUM-ALBUTEROL 3 ML NEB INHALATION SCH ×6 (02:49→22:27)
[2023-02-25] MEDS: AZITHROMYCIN 500 MG TAB PO SCH (08:54)
[2023-02-25] MEDS: FLECAINIDE 50 MG TAB PO SCH (08:54)
[2023-02-25] MEDS: LOSARTAN 25 MG TAB PO SCH (08:54)
[2023-02-25] MEDS: METOPROLOL SUCCINATE (ER) 25 MG TAB.ER.24H PO SCH (08:54)
[2023-02-25] MEDS: FUROSEMIDE 40 MG TAB PO SCH (08:54)
[2023-02-25] MEDS: APIXABAN 5 MG TAB PO SCH ×2 (08:54→20:07)
[2023-02-25] MEDS: PREGABALIN 75 MG CAP PO SCH ×3 (08:54→20:07)
[2023-02-25] MEDS: guaiFENesin 600 MG TABLET.ER PO SCH ×2 (08:54→20:07)
[2023-02-25] MEDS: ACETAMINOPHEN TAB 325 MG TAB PO PRN ×2 (09:04→20:08)
--- NOTE | 2023-02-25 09:10 | XR ---
EXAMINATION TYPE: XR chest 2V DATE OF EXAM: 02/25/2023 COMPARISON: 02/24/2023 INDICATION: Follow-up pneumonia TECHNIQUE: Frontal and lateral views of the chest are obtained. FINDINGS: The heart size is normal. The pulmonary vasculature is normal. Right middle lobe consolidation is present. This is improving from comparison. A minimal effusion may be present.. IMPRESSION: 1. Improving Right middle lobe infiltrate. A posterior right pleural effusion may be present. Continu ed follow-up is recommended.
[2023-02-25] MEDS: SODIUM CHLORIDE 0.9% 1,000 ML IV SCH (10:09)
--- NOTE | 2023-02-25 10:34 | P.CRDCN ---
History of Present Illness Consult date: 02/25/23 History of present illness: HISTORY OF PRESENT ILLNESS: This is a 73-year-old female with a past medical history significant for atrial fibrillation with ablation in August 2022, hypertension, valvular heart disease, and congestive heart failure. Patient follows in the office with Dr. Suarez. We have been asked to see the patient in consultation for AKameron mancilla with RVR. Patient examined at the bedside. Patient states she was around her daughter and caught a respiratory virus from her around [facility]. She states over the past few days she has become progressively more short of breath. She reports a frequent nonproductive cough. She denied any chest pain or pressure. Patient presented to the hospital for further evaluation. Patient was found to have right lower lobe pneumonia was started on antibiotics. The patient was also noted to be in atrial fibrillation with RVR. She was started on IV Cardizem which is currently infusing at 5 mg an hour. Telemetry reveals atrial fibrillation with a heart rate between 100-120 at the time of examination. She denies any chest pain or pressure. She denies any palpitations grade she continues to report shortness of breath this morning. She is on 3 L nasal cannula * EKG reveals atrial fibrillation with RVR * Chest xray worsening right mid to lower lung acute infiltrate and/or atelectasis * Laboratory data: WBC 6.8. Hemoglobin 11.9. Platelet count 183. Sodium 132. Potassium 3.9. BUN 16. Creatinine 0.78. Lactic acid 1.1. Pro-calcitonin 2.74. * Current home cardiac medications include Eliquis 5mg BID, flecainide 100 mg every 12 hours, losartan 75 mg daily, metoprolol succinate 12.5 mg daily, Lasix 40 mg daily, and Crestor 10mg at HS * Most recent echocardiogram obtained in August 2022 revealed ejection fraction 50-55%, mild MR, mild TR * Patient underwent Lexiscan stress test in May 2022 which was negative for ischemia. Stress test revealed fixed apical thinning and normal variant. REVIEW OF SYSTEMS: At the time of my exam: CONSTITUTIONAL: Denies fever or chills. HEENT: Denies blurred vision, vision changes, or eye pain. Denies hemoptysis CARDIOVASCULAR: Denies chest pain. Denies orthopnea. Denies PND. Denies palpitations RESPIRATORY: Denies shortness of breath. GASTROINTESTINAL: Denies abdominal pain. Denies nausea or vomiting. HEMATOLOGIC: Denies bleeding disorders. GENITOURINARY: Denies any blood in urine. SKIN: Denies pruitis. Denies rash. PHYSICAL EXAM: VITAL SIGNS: Reviewed. GENERAL: Well-developed in no acute distress. HEENT: Head is normocephalic. Pupils are equal, round. Sclerae anicteric. Mucous membranes of the mouth are moist. Neck supple. No JVD or thyromegaly LUNGS: Respirations even and unlabored. Lungs with diffuse rhonchi noted. HEART: Tachycardic. Irregular rate and rhythm. S1 and S2 heard. ABDOMEN: Soft. Nondistended. Nontender. EXTREMITIES: Normal range of motion. No clubbing or cyanosis. Peripheral pulses intact. No lower extremity edema NEUROLOGIC: Awake and alert. Oriented x 3. ASSESSMENT: Shortness of breath Right-sided community acquired pneumonia Persistent atrial fibrillation with RVR, on anticoagulation with Eliquis History of ablation, August 2022 History of cardioversion Hypertension Valvular heart disease PLAN: Obtain 2D echo to assess cardiac structure and function Discontinue flecainide Increase metoprolol succinate 25 mg daily Wean off Cardizem drip as able to tolerate Continue telemetry monitoring Resume additional cardiac medications Further recommendations pending patient course Nurse practitioner note has been reviewed by physician. Signing provider agrees with the documented findings, assessment, and plan of care. Past Medical History Past Medical History: Atrial Fibrillation, CVA/TIA, Hypertension, Sleep Apnea/CPAP/BIPAP Additional Past Medical History / Comment(s): See Dr Suarez's H&P,SOB, uses cpap,hypoglycemia,kidney stones,TIAs x2-"my brain feels funny" History of Any Multi-Drug Resistant Organisms: None Reported Past Surgical History: Cardiac Ablation Additional Past Surgical History / Comment(s): Colonoscopy; kidney stone removal, exp. lap., cardioversion x4 ablations x 2 Past Anesthesia/Blood Transfusion Reactions: Previous Problems w/ Anesthesia Additional Past Anesthesia/Blood Transfusion Reaction / Comment(s): heart rate fell very low with cardiac ablation and had trouble coming out of anesthesia, had paralytic before being sedated with kidney stone removal yrs ago Past Psychological History: Anxiety, Panic Disorder, PTSD Smoking Status: Former smoker Past Alcohol Use History: Rare Additional Past Alcohol Use History / Comment(s): quit smoking 1999 approx, social smoker. Past Drug Use History: None Reported - Past Family History Father Family Medical History: Cancer Additional Family Medical History / Comment(s): lung Mother Additional Family Medical History / Comment(s): aneurysm brain stem Medications and Allergies Home Medications Medication Instructions Recorded Confirmed Type Apixaban [Eliquis] 5 mg PO BID 03/23/19 02/23/23 History Temazepam 30 mg PO HS PRN 03/23/19 02/23/23 History ALPRAZolam [Xanax] 0.25 mg PO DAILY PRN 11/19/21 02/23/23 History Losartan [Cozaar] 75 mg PO DAILY 11/19/21 02/23/23 History Pregabalin [Lyrica] 150 mg PO TID 11/19/21 02/23/23 History Metoprolol Succinate [Toprol XL] 12.5 mg PO DAILY 09/02/22 02/23/23 History Furosemide [Lasix] 40 mg PO DAILY #90 tablet 09/05/22 02/23/23 Rx Flecainide Acetate [Tambocor] 100 mg PO Q12H 02/23/23 02/23/23 History Rosuvastatin [Crestor] 10 mg PO HS 02/23/23 02/23/23 History Allergies Allergy/AdvReac Type Severity Reaction Status Date / Time prednisone Allergy Rash/Hives/ Verified 02/23/23 14:03 itching Physical Exam Vitals: Vital Signs Temp Pulse Pulse Resp BP BP Pulse Ox 02/25/23 09:12 84 02/25/23 09:00 84 94 L 02/25/23 08:00 98.6 F 94 18 159/81 94 L 02/25/23 04:42 99.5 F 02/25/23 03:09 88 97 18 121/63 95 02/25/23 03:00 86 02/24/23 23:47 99.5 F 100 20 112/71 89 L 02/24/23 22:06 102 H 02/24/23 21:55 103 H 02/24/23 20:00 95 20 02/24/23 19:28 102.0 F H 95 20 137/92 94 L 02/24/23 16:50 92 18 02/24/23 16:42 90 18 02/24/23 15:47 92 133/71 02/24/23 15:16 114 H 17 122/70 98 02/24/23 15:11 109 H 110/68 97 02/24/23 14:43 98.3 F 120 H 17 115/68 97 02/24/23 14:39 97 02/24/23 13:19 98.2 F 118 H 20 87/54 91/60 92 L 02/24/23 12:58 90 02/24/23 12:49 90 Intake and Output 02/24/23 02/25/23 02/25/23 22:59 06:59 14:59 Intake Total 540 240 Output Total 600 Balance 540 -600 240 Intake: Oral 540 240 Output: Urine 600 Other: Voiding Method Bedside Commode Results 02/23/23 13:49 02/23/23 13:49 Current Medications Generic Name Dose Route Start Last Admin Trade Name Freq PRN Reason Stop Dose Admin Acetaminophen 650 mg 02/24/23 08:42 02/25/23 09:04 Acetaminophen Tab 325 Mg Tab PO 650 mg Q6HR PRN Administration Fever and/ or Pain Albuterol/Ipratropium 3 ml 02/24/23 07:43 Ipratropium-Albuterol 3 Ml Neb INHALATION RT-Q2H PRN Shortness Of Breath Or Wheezing Albuterol/Ipratropium 3 ml 02/24/23 20:00 02/25/23 09:00 Ipratropium-Albuterol 3 Ml Neb INHALATION 3 ml RT-Q4H DUTCH Administration Alprazolam 0.25 mg 02/23/23 15:52 02/24/23 16:28 Alprazolam 0.25 Mg Tab PO 0.25 mg DAILY PRN Administration Anxiety Apixaban 5 mg 02/23/23 21:00 02/25/23 08:54 Apixaban 5 Mg Tab PO 5 mg BID DUTCH Administration Protocol Atorvastatin Calcium 20 mg 02/23/23 21:00 02/24/23 19:33 Atorvastatin 20 Mg Tab PO 20 mg HS DUTCH Administration Furosemide 40 mg 02/24/23 09:00 02/25/23 08:54 Furosemide 40 Mg Tab PO 40 mg DAILY DUTCH Administration Guaifenesin 600 mg 02/24/23 21:30 02/25/23 08:54 Guaifenesin 600 Mg Tablet.Er PO 600 mg Q12HR DUTCH Administration Sodium Chloride 1,000 mls @ 75 mls/hr 02/23/23 14:00 02/25/23 10:09 Saline 0.9% IV Not Given .[id number] DUTCH Ceftriaxone Sodium 2 gm/ 50 mls @ 100 mls/hr 02/24/23 09:00 02/25/23 08:53 Sodium Chloride IVPB 02/27/23 09:29 100 mls/hr Q24HR DUTCH Administration Protocol Diltiazem HCl 125 mg/ Sodium 125 mls @ 5 mls/hr 02/24/23 15:00 02/24/23 15:15 Chloride IV 5 mg/hr .Q24H DUTCH 5 mls/hr Administration 5 MG/HR Losartan Potassium 75 mg 02/24/23 09:00 02/25/23 08:54 Losartan 25 Mg Tab PO 75 mg DAILY DUTCH Administration Metoprolol Succinate 25 mg 02/25/23 09:00 02/25/23 08:54 Metoprolol Succinate (Er) 25 Mg Tab.Er.24h PO 25 mg DAILY DUTCH Administration Miscellaneous Information 1 each 02/23/23 14:39 Pneumonia Protocol Utilized 1 Each Misc PO ONCE PRN Per Protocol Pregabalin 150 mg 02/23/23 16:00 02/25/23 08:54 Pregabalin 75 Mg Cap PO 150 mg TID DUTCH Administration Temazepam 30 mg 02/24/23 21:09 02/24/23 21:32 Temazepam 15 Mg Cap PO 30 mg HS PRN Administration Insomnia Intake and Output 02/24/23 02/25/23 02/25/23 22:59 06:59 14:59 Intake Total 540 240 Output Total 600 Balance 540 -600 240 Intake: Oral 540 240 Output: Urine 600 Other: Voiding Method Bedside Commode 02/23/23 13:49 02/23/23 13:49
--- NOTE | 2023-02-25 11:37 | P.PN ---
Subjective Progress Note Date: 02/25/23 HISTORY OF PRESENT ILLNESS This is a 73-year-old female with past medical history of atrial tachycardia st atus post ablation and chronic atrial fibrillation with history of previous ablations and PVI, hypertension, hyperlipidemia, generalized anxiety disorder and panic disorder, obstructive sleep apnea, TIAs. Patient presented to the emergency center with cough and congestion going on for couple days. She complains of chest congestion and sinus congestion with occasional cough with a little shortness of breath. Also feeling fevers but no chest pain. EKG showed atrial fibrillation at a ventricular rate 133 bpm. Initial chest x-ray reveals right lower lobe patchy infiltrate felt to reflect pneumonia. Repeat chest x-ray reveals worsening right mid to lower lung acute infiltrate and/or atelectasis., Cardizem drip and initially admitted to the [facility] floor and then transferred to cardiac stepdown unit. Heart rate was initially in the 140s now running 110 to 120s on Cardizem drip at 5 mg per hour. Consults requested with pulmonary medicine and cardiology. 02/25: Patient has been seen by cardiology and flecainide was discontinued and metabolic process and it was increased to 25 mg daily, patient to be weaned off Cardizem drip. Echocardiogram has been ordered. Heart rate is now in the 90s, remains in atrial fibrillation. Pro-calcitonin 2.74. Patient has been seen and followed by pulmonary medicine, continued on bronchodilators and antibiotics as well as supplemental oxygen to maintain pulse ox greater than 92%. Repeat chest x-ray reveals improving right middle lobe infiltrate. A posterior right pleural effusion may be present. REVIEW OF SYSTEMS Constitutional: No fever, no chills, no night sweats. No weight change. No weakness, fatigue or lethargy. No daytime sleepiness. EENT: No headache. No blurred vision or double vision, no loss of vision. No loss of Hearing, no ringing in the ears, no dizziness. No nasal drainage or congestion. No epistaxis. No sore throat. Lungs: No shortness of breath, cough, no sputum production. No wheezing. Cardiovascular: No chest pain, no lower extremity edema. No palpitations. No paroxysmal nocturnal dyspnea. No orthopnea. No lightheadedness or dizziness. No syncopal episodes. Abdominal: No abdominal pain. No nausea, vomiting. No diarrhea. No constipation. No bloody or tarry stools. No loss of appetite. Genitourinary: No dysuria, increased frequency, urgency. No urinary retention. Musculoskeletal: No myalgias. No muscle weakness, no gait dysfunction, no frequent falls. No back pain. No neck pain. Integumentary: No wounds, no lesions. No rash or pruritus. No unusual bruising. No change in hair or nails. Neurologic: No aphasia. No facial droop. No change in mentation. No head injury. No headache. No paralysis. No paresthesia. Psychiatric: No depression. No anxiety. No mood swings. Endocrine: No abnormal blood sugars. No weight change. No excessive sweating or thirst. No cold intolerance. PHYSICAL EXAMINATION Gen: This is a 72-year-old female. She is resting in bed and appears to be comfortable at rest. No acute respiratory distress noted. Family members are at bedside. HEENT: Head is atraumatic, normocephalic. Pupils equal, round. Sclerae is anicteric. NECK: Supple. No JVD. No lymphadenopathy. No thyromegaly. LUNGS: Few crackles at the bases. Scattered rhonchi. No intercostal retractions. HEART: First heart sound is depressed, second heart sound is normal, irregular, no murmur. ABDOMEN: Soft. Bowel sounds are present. No masses. No tenderness. EXTREMITIES: No pedal edema. No calf tenderness. Dorsalis pedis +2 bilaterally NEUROLOGICAL: Patient is awake, alert and oriented x3. Cranial nerves 2 through 12 are grossly intact. ASSESSMENT AND PLAN 1. Acute hypoxic respiratory failure secondary to pneumonia, requiring oxygen therapy. Continue patient on oxygen therapy. 2. Pneumonia right lower lobe. Consult with pulmonary medicine appreciated. Continue antibiotics the form of ceftriaxone and azithromycin, continue patient on DuoNeb treatments 4 times daily and as needed. Repeat chest x-ray has been ordered by pulmonary medicine. Consult with pulmonary medicine appreciated. 3. Chronic persistent atrial fibrillation status post ablation presenting with RVR. Patient is on Cardizem drip to be weaned off, continue eliquis 5 mg twice daily, flecainide discontinued by cardiology. Continue patient on Toprol-XL increased to 25 mg daily, cardiology consult appreciated. 4. Generalized anxiety disorder. Continue patient on Xanax 0.25 mg twice daily. 5. Hypertension. Continue losartan 75 mg daily, Toprol-XL 25 mg daily. 6. History of TIA. Continue eliquis, statin for secondary prevention 7. Hyperlipidemia. Continue Crestor 10 mg at bedtime. 8. Obstructive sleep apnea on CPAP. 9. GI prophylaxis. Protonix. 10. DVT prophylaxis. Eliquis. DISCHARGE PLAN Return home. Impression and plan of care have been directed as dictated by the signing physician. Sulema Calabrese nurse practitioner acting as scribe for signing physician. Objective - Vital Signs Vital signs: Vital Signs Temp 98.6 F 02/25/23 08:00 Pulse 84 02/25/23 09:12 Resp 18 02/25/23 08:00 BP 159/81 02/25/23 08:00 Pulse Ox 94 L 02/25/23 09:00 FiO2 Intake & Output 02/24/23 02/25/23 02/25/23 18:59 06:59 18:59 Intake Total 540 240 Output Total 600 Balance 540 -600 240 Intake: Oral 540 240 Output: Urine 600 Other: Voiding Method Bedside Commode # Voids 1 - Labs CBC & Chem 7: 02/26/23 08:01 02/26/23 08:01 Labs: Abnormal Lab Results - Last 24 Hours (Table) 02/24/23 Range/Units 15:39 Procalcitonin 2.74 H (0.02-0.09) ng/mL Microbiology - Last 24 Hours (Table) 02/23/23 13:49 Blood Culture - Preliminary Blood No Growth after 24 hours 02/23/23 13:49 Blood Culture - Preliminary Blood No Growth after 24 hours
--- NOTE | 2023-02-25 12:34 | P.PN ---
Subjective Progress Note Date: 02/25/23 I'm seeing this patient in new consultation today 02/24/2023 for possible right lower lobe pneumonia. Patient is a 73-year-old white female with past medical history of paroxysmal atrial fibrillation, previous cardiac ablation and cardioversion, TIAs, obstructive sleep apnea with CPAP use, hypertension, and minimal smoking history. Patient has followed with Dr. Moore in the office in the past, and did have a PFT which showed essentially normal lung function. Patient presented yesterday evening with chief complaint of shortness breath and congested cough starting approximately 3 days ago. Patient has also been intermittently febrile. She denies any chest pain, hemoptysis, heart palpitations, syncope, orthopnea. Patient is currently sitting up in bed, on 4 L nasal cannula, in no acute distress. Chest x-ray on arrival showed right lower lobe patchy infiltrates felt to reflect pneumonia. Patient's CBC on arrival shows a WBC count of 6.8, hemoglobin 11.9, hematocrit 35.1, platelets 183,000. Patient's BMP shows a sodium 132, potassium 3.9, chloride 99, serum CO2 28, BUN 16, creatinine 0.78, glucose 100. Patient's lactic acid level was 1.1. She was negative for influenza, RSV, COVID-19. Patient is currently receiving a course of Zithromax and ceftriaxone. Heart rhythm is irregular. She is anticoagulated on Eliquis. Vital signs are stable. On today's evaluation of 02/25/2023, the patient is feeling slightly better. She still weak and her appetite is diminished. The chest x-ray is showing interval improvement in the right lung pulmonary infiltrates. There is improvement elevation of the right hemidiaphragm is visualized. Tunde consolidation involving the right lung. Pro-calcitonin level was elevated at 2.7 and the patient remains on a combination of Rocephin and Zithromax. This is more consistent with a bacterial right lung pneumonia. No other active issues for now. She is in with intermittent stable. No altered mentation. She is on oxygen at 3 L nasal cannula. She is using the incentive spirometer. Objective - Vital Signs Vital signs: Vital Signs Temp 98.2 F 02/25/23 11:34 Pulse 77 02/25/23 12:13 Resp 18 02/25/23 11:34 BP 100/59 02/25/23 11:34 Pulse Ox 95 02/25/23 11:34 FiO2 Intake & Output 02/24/23 02/25/23 02/25/23 18:59 06:59 18:59 Intake Total 540 640 Output Total 600 Balance 540 -600 640 Intake: Oral 540 640 Output: Urine 600 Other: Voiding Method Bedside Commode # Voids 1 - Exam GENERAL EXAM: Alert, 73-year-old white female , comfortable in no apparent distress. The patient is currently on 3 L O2 nasal cannula HEAD: Normocephalic and atraumatic EYES: Normal reaction of pupils, equal size. NOSE: Clear with pink turbinates. THROAT: No erythema or exudates. NECK: No masses, no JVD. CHEST: No chest wall deformity. LUNGS: Equal air entry with diffuse rhonchi and scattered crackles throughout. On 3 L nasal cannula. No conversational dyspnea or accessory muscle use.. CVS: S1 and S2 normal with no audible murmur, irregular rhythm. No extra heart sounds ABDOMEN: No hepatosplenomegaly, active bowel sounds, no guarding or rigidity. SPINE: No scoliosis or deformity SKIN: No rashes CENTRAL NERVOUS SYSTEM: No focal deficits, tone is normal in all 4 extremities. EXTREMITIES: There is no peripheral edema, clubbing, or cyanosis. Peripheral pulses are intact. - Labs CBC & Chem 7: 02/23/23 13:49 02/23/23 13:49 Labs: Abnormal Lab Results - Last 24 Hours (Table) 02/24/23 Range/Units 15:39 Procalcitonin 2.74 H (0.02-0.09) ng/mL Microbiology - Last 24 Hours (Table) 02/23/23 13:49 Blood Culture - Preliminary Blood No Growth after 24 hours 02/23/23 13:49 Blood Culture - Preliminary Blood No Growth after 24 hours Assessment and Plan Assessment: Community-acquired pneumonia. Chest x-ray on arrival showed right lower lobe patchy infiltrates felt to reflect pneumonia. This is most likely a bacterial pneumonia. Pro-calcitonin level is elevated. There is interval improvement in the right lung pulmonary infiltrate and the patient be kept on the same antibiotics Acute hypoxic respiratory failure secondary to above. Currently on 3 L nasal cannula. History of paroxysmal atrial fibrillation, heart rate is currently irregular. She is anticoagulated on Eliquis. Patient has had previous cardiac ablation History of TIAs Obstructive sleep apnea with CPAP use Hypertension Ex-smoker Plan: Continue same antibiotic coverage with Rocephin 2 g and Zithromax 5 mg by mouth daily Repeat pro-calcitonin level tomorrow Repeat chest x-ray tomorrow Repeat labs tomorrow Wean down FiO2 as tolerated Blood cultures are negative We'll continue to follow
[2023-02-25] MEDS: DILTIAZEM 125 MG in SODIUM CHLORIDE 0.9% 100 ML IV SCH (16:39)
--- NOTE | 2023-02-25 18:07 | CA ---
Transthoracic Echo Report Name: Norma Hawthorne Age: 73 Gender: F : 1950 Exam Date: 02/25/2023 11:00 Exam Location: [facility] Ht (in): 66 Wt (lb): 150 Ordering Physician: Doreen Flores Attending/Referring Phys: [id number], Sandra Solutions Architect Consultant Sheba Molina RDCS Procedure CPT: Indications: LV function, pneumonia Cardiac Hx: Technical Quality: Fair Contrast 1: Total Dose (mL): Contrast 2: Total Dose (mL): MEASUREMENTS (Male / Female) Normal Values 2D ECHO LV Diastolic Diameter PLAX 3.9 cm 4.2 - 5.9 / 3.9 - 5.3 cm LV Systolic Diameter PLAX 2.6 cm IVS Diastolic Thickness 1.1 cm 0.6 - 1.0 / 0.6 - 0.9 cm LVPW Diastolic Thickness 1.0 cm 0.6 - 1.0 / 0.6 - 0.9 cm LV Relative Wall Thickness 0.5 RV Internal Dim ED PLAX 3.0 cm LA Volume 72.5 cm??? 18 - 58 / 22 - 52 cm??? M-MODE Aortic Root Diameter MM 3.0 cm LA Systolic Diameter MM 4.3 cm LA Ao Ratio MM 1.4 AV Cusp Separation MM 1.9 cm DOPPLER AV Peak Velocity 168.1 cm/s AV Peak Gradient 11.3 mmHg AV Mean Velocity 117.6 cm/s AV Mean Gradient 6.2 mmHg AV Velocity Time Integral 29.1 cm LVOT Peak Velocity 124.5 cm/s LVOT Peak Gradient 6.2 mmHg LVOT Velocity Time Integral 22.5 cm MV E' Velocity 9.4 cm/s TR Peak Velocity 289.8 cm/s TR Peak Gradient 33.6 mmHg Right Ventricular Systolic Press 38.2 mmHg FINDINGS Left Ventricle Mildly increased left ventricular wall thickness. Normal left ventricular systolic function with no obvious regional wall motion abnormalities. Left ventricular ejection fraction is estimated at 55-60 %. Right Ventricle Normal right ventricular size and function. Mild pulmonary hypertension. Right Atrium Normal right atrial size. Left Atrium Moderately increased left atrial volume. Mildly increased left atrial area. Mitral Valve Mild mitral annular calcification. Moderate mitral regurgitation. Aortic Valve No aortic valve stenosis or regurgitation. Tricuspid Valve Mild tricuspid regurgitation. Pulmonic Valve Trace pulmonic regurgitation. Pericardium No pericardial effusion. Aorta Normal size aortic root and proximal ascending aorta. CONCLUSIONS Normal LV systolic function Moderate mitral regurgitation Previewed by: Dr. Derian Edwards MD (Electronically Signed) Final Date: 25 February 2023 18:06
[2023-02-25] MEDS: ALPRAZolam 0.25 MG TAB PO PRN (20:07)
[2023-02-25] MEDS: ATORVASTATIN 20 MG TAB PO SCH (20:08)
[2023-02-26] MEDS: IPRATROPIUM-ALBUTEROL 3 ML NEB INHALATION SCH ×6 (00:30→20:09)
--- NOTE | 2023-02-26 08:13 | XR ---
EXAMINATION TYPE: XR chest 1V DATE OF EXAM: 02/26/2023 8:00 AM COMPARISON: Chest radiographs from 02/25/2023. TECHNIQUE: XR chest 1V Portable AP radiograph of the chest. CLINICAL INDICATION:Female, 73 years old with history of PNA; sob; FINDINGS: Lungs/Pleura: No pneumothorax. Background COPD changes. Blunting of the right costophrenic angle. Min imally improved right mid and lower lung patchy airspace opacities. Pulmonary vascularity: Unremarkable. Heart/mediastinum: Cardiomediastinal silhouette is prominent and stable. Atherosclerotic calcificati ons are seen in the aorta. Musculoskeletal: No acute osseous pathology. Other findings: Surgical clips at the GE junction. Lines/Tubes: Endotracheal tube with distal tip xx cm above the ana Nasogastric tube with its distal tip and side-port projecting under the diaphragm. IMPRESSION: Background COPD changes with minimally improved right mid to lower lung pneumonia with small right pl eural effusion.
[2023-02-26 09:47] LABS: Basophils % (A) 0 %; Eosinophils % (A) 0 %; HCT 34.6 % (34.0-46.0); HGB 11.6 gm/dL (11.4-16.0); Lymphocytes # (A) 0.7 k/uL (1.0-4.8); Lymphocytes % (A) 14 %; MCH 31.7 pg (25.0-35.0); MCHC 33.4 g/dL (31.0-37.0); MCV 94.8 fL (80.0-100.0); Mean Platelet Volume 8.3; Monocytes # (A) 0.2 k/uL (0-1.0); Monocytes % (A) 4 %; Neutrophils # (A) 3.9 k/uL (1.3-7.7); Neutrophils % (A) 81 %; Platelet Count 185 k/uL (150-450); RBC 3.65 m/uL (3.80-5.40); RDW 12.9 % (11.5-15.5); WBC 4.8 k/uL (3.8-10.6)
[2023-02-26 10:11] LABS: ALT 43 U/L (4-34); AST 58 U/L (14-36); African American GFR (CKD) >90 (>60 ml/min/1.73 sqM); Albumin 3.3 g/dL (3.5-5.0); Alkaline Phosphatase 65 U/L (38-126); Anion Gap 8 mmol/L; Blood Urea Nitrogen 9 mg/dL (7-17); Calcium 8.6 mg/dL (8.4-10.2); Carbon Dioxide 28 mmol/L (22-30); Chloride 103 mmol/L (98-107); Glucose 136 mg/dL (74-99); Non-African American GFR(CKD) 86 (>60 ml/min/1.73 sqM); Potassium 3.4 mmol/L (3.5-5.1); Sodium 139 mmol/L (137-145); Total Bilirubin 0.7 mg/dL (0.2-1.3); Total Protein 6.1 g/dL (6.3-8.2)
[2023-02-26] MEDS: AZITHROMYCIN 500 MG TAB PO SCH (10:40)
[2023-02-26] MEDS: APIXABAN 5 MG TAB PO SCH ×2 (10:40→21:33)
[2023-02-26] MEDS: FUROSEMIDE 40 MG TAB PO SCH (10:40)
[2023-02-26] MEDS: METOPROLOL SUCCINATE (ER) 25 MG TAB.ER.24H PO SCH ×2 (10:41→21:34)
[2023-02-26] MEDS: LOSARTAN 25 MG TAB PO SCH (10:41)
[2023-02-26] MEDS: guaiFENesin 600 MG TABLET.ER PO SCH ×2 (10:41→21:33)
[2023-02-26] MEDS: PREGABALIN 75 MG CAP PO SCH ×3 (10:41→21:33)
[2023-02-26] MEDS: ACETAMINOPHEN TAB 325 MG TAB PO PRN (11:11)
--- NOTE | 2023-02-26 12:23 | P.PN ---
Subjective Progress Note Date: 02/26/23 HISTORY OF PRESENT ILLNESS: This is a 73-year-old female with a past medical history significant for atrial fibrillation with ablation in August 2022, hypertension, valvular heart d isease, and congestive heart failure. Patient follows in the office with Dr. Suarez. We have been asked to see the patient in consultation for [place] with RVR. Patient examined at the bedside. Patient states she was around her daughter and caught a respiratory virus from her around [facility]. She states over the past few days she has become progressively more short of breath. She reports a frequent nonproductive cough. She denied any chest pain or pressure. Patient presented to the hospital for further evaluation. Patient was found to have right lower lobe pneumonia was started on antibiotics. The patient was also noted to be in atrial fibrillation with RVR. She was started on IV Cardizem which is currently infusing at 5 mg an hour. Telemetry reveals atrial fibrillation with a heart rate between 100-120 at the time of examination. She denies any chest pain or pressure. She denies any palpitations grade she continues to report shortness of breath this morning. She is on 3 L nasal cannula * EKG reveals atrial fibrillation with RVR * Chest xray worsening right mid to lower lung acute infiltrate and/or atelectasis * Laboratory data: WBC 6.8. Hemoglobin 11.9. Platelet count 183. Sodium 132. Potassium 3.9. BUN 16. Creatinine 0.78. Lactic acid 1.1. Pro-calcitonin 2.74. * Current home cardiac medications include Eliquis 5mg BID, flecainide 100 mg every 12 hours, losartan 75 mg daily, metoprolol succinate 12.5 mg daily, Lasix 40 mg daily, and Crestor 10mg at HS * Most recent echocardiogram obtained in August 2022 revealed ejection fraction 50-55%, mild MR, mild TR * Patient underwent Lexiscan stress test in May 2022 which was negative for ischemia. Stress test revealed fixed apical thinning and normal variant. 02/26/2023 Patient examined this morning at the bedside. Patient denies chest pain or pressure. She continues to report shortness of breath. Telemetry reveals atrial fibrillation with heart rates in the 90s. She is currently receiving metoprolol succinate 25 mg daily. She has IV Cardizem infusion at 5 mg an hour. 2-D echo reveals ejection fraction 55-60% with moderate mitral regurgitation. PHYSICAL EXAM: VITAL SIGNS: Reviewed. GENERAL: Well-developed in no acute distress. HEENT: Head is normocephalic. Pupils are equal, round. Sclerae anicteric. Mucous membranes of the mouth are moist. Neck supple. No JVD or thyromegaly LUNGS: Respirations even and unlabored. Lungs with diffuse rhonchi noted. HEART: Irregular rate and rhythm. S1 and S2 heard. ABDOMEN: Soft. Nondistended. Nontender. EXTREMITIES: Normal range of motion. No clubbing or cyanosis. Peripheral pulses intact. No lower extremity edema NEUROLOGIC: Awake and alert. Oriented x 3. ASSESSMENT: Shortness of breath Right-sided community acquired pneumonia Persistent atrial fibrillation with RVR, on anticoagulation with Eliquis History of ablation, August 2022 History of cardioversion Hypertension Valvular heart disease PLAN: Flecainide discontinued yesterday Increase metoprolol succinate to 25mg BID Decrease losartan from 75 mg to 50 mg daily to allow for increase in rate contro lling medications Discontinue IV Cardizem Continue telemetry monitoring Resume additional cardiac medications Further recommendations pending patient course Nurse practitioner note has been reviewed by physician. Signing provider agrees with the documented findings, assessment, and plan of care. Objective - Vital Signs Vital signs: Vital Signs Temp 98.0 F 02/26/23 11:30 Pulse 84 02/26/23 12:17 Resp 18 02/26/23 11:30 BP 104/62 02/26/23 11:30 Pulse Ox 96 02/26/23 11:30 FiO2 Intake & Output 02/25/23 02/26/23 02/26/23 18:59 06:59 18:59 Intake Total 1140 Balance 1140 Intake: Oral 1140 Other: Voiding Method Toilet Toilet # Voids 2 - Labs CBC & Chem 7: 02/26/23 08:01 02/26/23 08:01 Labs: Abnormal Lab Results - Last 24 Hours (Table) 02/26/23 02/26/23 Range/Units 08:01 08:01 RBC 3.65 L (3.80-5.40) m/uL Lymphocytes # 0.7 L (1.0-4.8) k/uL Potassium 3.4 L (3.5-5.1) mmol/L Glucose 136 H (74-99) mg/dL AST 58 H (14-36) U/L ALT 43 H (4-34) U/L Total Protein 6.1 L (6.3-8.2) g/dL Albumin 3.3 L (3.5-5.0) g/dL Microbiology - Last 24 Hours (Table) 02/23/23 13:49 Blood Culture - Preliminary Blood No Growth after 48 hours 02/23/23 13:49 Blood Culture - Preliminary Blood No Growth after 48 hours
--- NOTE | 2023-02-26 13:37 | P.PN ---
Subjective Progress Note Date: 02/26/23 HISTORY OF PRESENT ILLNESS This is a 73-year-old female with past medical history of atrial tachycardia st atus post ablation and chronic atrial fibrillation with history of previous ablations and PVI, hypertension, hyperlipidemia, generalized anxiety disorder and panic disorder, obstructive sleep apnea, TIAs. Patient presented to the emergency center with cough and congestion going on for couple days. She complains of chest congestion and sinus congestion with occasional cough with a little shortness of breath. Also feeling fevers but no chest pain. EKG showed atrial fibrillation at a ventricular rate 133 bpm. Initial chest x-ray reveals right lower lobe patchy infiltrate felt to reflect pneumonia. Repeat chest x-ray reveals worsening right mid to lower lung acute infiltrate and/or atelectasis., Cardizem drip and initially admitted to the [facility] floor and then transferred to cardiac stepdown unit. Heart rate was initially in the 140s now running 110 to 120s on Cardizem drip at 5 mg per hour. Consults requested with pulmonary medicine and cardiology. 02/25: Patient has been seen by cardiology and flecainide was discontinued and metabolic process and it was increased to 25 mg daily, patient to be weaned off Cardizem drip. Echocardiogram has been ordered. Heart rate is now in the 90s, remains in atrial fibrillation. Pro-calcitonin 2.74. Patient has been seen and followed by pulmonary medicine, continued on bronchodilators and antibiotics as well as supplemental oxygen to maintain pulse ox greater than 92%. Repeat chest x-ray reveals improving right middle lobe infiltrate. A posterior right pleural effusion may be present. 02/26: Patient heart rate is improved and she remains in atrial fibrillation. She has been continued on Cardizem drip at 5 mg per hour. Heart rate is mostly in the 80s to 90s, blood pressure 104/62, pulse ox is 96% on room air. Patient cont inues to have some shortness of breath. She has been continued on IV antibiotics. Repeat blood work reveals WBC 4.8, hemoglobin 11.6, platelet count 185. Sodium 139, potassium 3.4 and will be replaced. BUN 9 and creatinine 0.7. Blood sugar 136. AST 58, ALT 43. Pro-calcitonin was elevated at 2.74. Blood culture showing no growth at 48 hours. Repeat chest x-ray reveals background COPD changes with minimally improved right mid to lower lung pneumonia with small right pleural effusion. Echocardiogram reveals EF of 55-60%, moderate mitral regurgitation. REVIEW OF SYSTEMS Constitutional: No fever, no chills, no night sweats. No weight change. No weakness, fatigue or lethargy. No daytime sleepiness. EENT: No headache. No blurred vision or double vision, no loss of vision. No loss of Hearing, no ringing in the ears, no dizziness. No nasal drainage or congestion. No epistaxis. No sore throat. Lungs: Reports shortness of breath, cough, no sputum production. No wheezing. Cardiovascular: Denies chest pain, no lower extremity edema. No palpitations. No paroxysmal nocturnal dyspnea. No orthopnea. No lightheadedness or dizziness. No syncopal episodes. Abdominal: No abdominal pain. No nausea, vomiting. No diarrhea. No constipation. No bloody or tarry stools. No loss of appetite. Genitourinary: No dysuria, increased frequency, urgency. No urinary retention. Musculoskeletal: No myalgias. No muscle weakness, no gait dysfunction, no frequent falls. Chronic back pain. No neck pain. Integumentary: No wounds, no lesions. No rash or pruritus. No unusual bruising. No change in hair or nails. Neurologic: No aphasia. No facial droop. No change in mentation. No head injury. No headache. No paralysis. No paresthesia. Psychiatric: No depression. No anxiety. No mood swings. Endocrine: No abnormal blood sugars. No weight change. No excessive sweating or thirst. No cold intolerance. PHYSICAL EXAMINATION Gen: This is a 72-year-old female. She is resting in bed and appears to be comfortable at rest. No acute respiratory distress noted. Family members are at bedside. HEENT: Head is atraumatic, normocephalic. Pupils equal, round. Sclerae is an icteric. NECK: Supple. No JVD. No lymphadenopathy. No thyromegaly. LUNGS: Few crackles at the bases. Scattered rhonchi. No intercostal retractions. HEART: First heart sound is depressed, second heart sound is normal, irregular, no murmur. ABDOMEN: Soft. Bowel sounds are present. No masses. No tenderness. EXTREMITIES: No pedal edema. No calf tenderness. Dorsalis pedis +2 bilaterally NEUROLOGICAL: Patient is awake, alert and oriented x3. Cranial nerves 2 through 12 are grossly intact. ASSESSMENT AND PLAN 1. Acute hypoxic respiratory failure secondary to pneumonia, requiring oxygen therapy. Continue patient on oxygen therapy. 2. Pneumonia right lower lobe. Consult with pulmonary medicine appreciated. Continue antibiotics the form of ceftriaxone and azithromycin, continue patient on DuoNeb treatments 4 times daily and as needed. Repeat chest x-ray has been ordered by pulmonary medicine. Consult with pulmonary medicine appreciated. 3. Chronic persistent atrial fibrillation status post ablation presenting with RVR. Patient is on Cardizem drip to be weaned off, continue eliquis 5 mg twice daily, flecainide discontinued by cardiology. Continue patient on Toprol-XL increased to 25 mg daily, cardiology consult appreciated. 4. Generalized anxiety disorder. Continue patient on Xanax 0.25 mg twice daily. 5. Hypertension. Continue losartan 75 mg daily, Toprol-XL 25 mg daily. 6. History of TIA. Continue eliquis, statin for secondary prevention 7. Hyperlipidemia. Continue Crestor 10 mg at bedtime. 8. Obstructive sleep apnea on CPAP. 9. GI prophylaxis. Protonix. 10. DVT prophylaxis. Eliquis. DISCHARGE PLAN Return home. Impression and plan of care have been directed as dictated by the signing physician. Sulema Calabrese nurse practitioner acting as scribe for signing physician. Objective - Vital Signs Vital signs: Vital Signs Temp 98.0 F 02/26/23 11:30 Pulse 84 02/26/23 12:17 Resp 18 02/26/23 11:30 BP 104/62 02/26/23 11:30 Pulse Ox 96 02/26/23 11:30 FiO2 Intake & Output 02/25/23 02/26/23 02/26/23 18:59 06:59 18:59 Intake Total 1140 Balance 1140 Intake: Oral 1140 Other: Voiding Method Toilet Toilet # Voids 2 - Labs CBC & Chem 7: 02/26/23 08:01 02/26/23 08:01 Labs: Abnormal Lab Results - Last 24 Hours (Table) 02/26/23 02/26/23 Range/Units 08:01 08:01 RBC 3.65 L (3.80-5.40) m/uL Lymphocytes # 0.7 L (1.0-4.8) k/uL Potassium 3.4 L (3.5-5.1) mmol/L Glucose 136 H (74-99) mg/dL AST 58 H (14-36) U/L ALT 43 H (4-34) U/L Total Protein 6.1 L (6.3-8.2) g/dL Albumin 3.3 L (3.5-5.0) g/dL Microbiology - Last 24 Hours (Table) 02/23/23 13:49 Blood Culture - Preliminary Blood No Growth after 48 hours 02/23/23 13:49 Blood Culture - Preliminary Blood No Growth after 48 hours
[2023-02-26] MEDS: ALPRAZolam 0.25 MG TAB PO PRN ×2 (16:19→21:33)
--- NOTE | 2023-02-26 17:34 | P.PN ---
Subjective Progress Note Date: 02/26/23 I'm seeing this patient in new consultation today 02/24/2023 for possible right lower lobe pneumonia. Patient is a 73-year-old white female with past medical history of paroxysmal atrial fibrillation, previous cardiac ablation and cardioversion, TIAs, obstructive sleep apnea with CPAP use, hypertension, and minimal smoking history. Patient has followed with Dr. Moore in the office in the past, and did have a PFT which showed essentially normal lung function. Patient presented yesterday evening with chief complaint of shortness breath and congested cough starting approximately 3 days ago. Patient has also been intermittently febrile. She denies any chest pain, hemoptysis, heart palpitations, syncope, orthopnea. Patient is currently sitting up in bed, on 4 L nasal cannula, in no acute distress. Chest x-ray on arrival showed right lower lobe patchy infiltrates felt to reflect pneumonia. Patient's CBC on arrival shows a WBC count of 6.8, hemoglobin 11.9, hematocrit 35.1, platelets 183,000. Patient's BMP shows a sodium 132, potassium 3.9, chloride 99, serum CO2 28, BUN 16, creatinine 0.78, glucose 100. Patient's lactic acid level was 1.1. She was negative for influenza, RSV, COVID-19. Patient is currently receiving a course of Zithromax and ceftriaxone. Heart rhythm is irregular. She is anticoagulated on Eliquis. Vital signs are stable. On today's evaluation of 02/25/2023, the patient is feeling slightly better. She still weak and her appetite is diminished. The chest x-ray is showing interval improvement in the right lung pulmonary infiltrates. There is improvement elevation of the right hemidiaphragm is visualized. Tunde consolidation involving the right lung. Pro-calcitonin level was elevated at 2.7 and the patient remains on a combination of Rocephin and Zithromax. This is more consistent with a bacterial right lung pneumonia. No other active issues for now. She is in with intermittent stable. No altered mentation. She is on oxygen at 3 L nasal cannula. She is using the incentive spirometer. On 02/26/2023, the patient is on room air oxygen. Her pulse ox is 97%. She continues to have dense consolidation of the right lower lobe which is most likely bacterial infection. The chest x-ray findings of essentially stable. Did not appreciate any significant improvement since yesterday. Nevertheless, the pro calcitonin level has been dropping. The level is currently down to 1.68. She remains on accommodation of Rocephin and Zithromax. Cultures are negative thus far. No chest pain. No pleurisy. She continues to have crackles in the right lung base. No other significant events otherwise for now. No significant leukocytosis. No hemoptysis. No pleurisy. Objective - Vital Signs Vital signs: Vital Signs Temp 97.7 F 02/26/23 15:53 Pulse 88 02/26/23 15:57 Resp 18 02/26/23 15:53 BP 120/71 02/26/23 15:53 Pulse Ox 97 02/26/23 15:53 FiO2 Intake & Output 02/25/23 02/26/23 02/26/23 18:59 06:59 18:59 Intake Total 1140 Balance 1140 Intake: Oral 1140 Other: Voiding Method Toilet Toilet # Voids 2 1 - Exam GENERAL EXAM: Alert, 73-year-old white female , comfortable in no apparent distress. The patient is currently on room air oxygen HEAD: Normocephalic and atraumatic EYES: Normal reaction of pupils, equal size. NOSE: Clear with pink turbinates. THROAT: No erythema or exudates. NECK: No masses, no JVD. CHEST: No chest wall deformity. LUNGS: Equal air entry with diffuse rhonchi and scattered crackles throughout. Room air oxygen with crackles in the right lung base along with some scattered expiratory wheeze CVS: S1 and S2 normal with no audible murmur, irregular rhythm. No extra heart sounds ABDOMEN: No hepatosplenomegaly, active bowel sounds, no guarding or rigidity. SPINE: No scoliosis or deformity SKIN: No rashes CENTRAL NERVOUS SYSTEM: No focal deficits, tone is normal in all 4 extremities. EXTREMITIES: There is no peripheral edema, clubbing, or cyanosis. Peripheral pulses are intact. - Labs CBC & Chem 7: 02/26/23 08:01 02/26/23 08:01 Labs: Abnormal Lab Results - Last 24 Hours (Table) 02/26/23 02/26/23 02/26/23 Range/Units 08:01 08:01 08:01 RBC 3.65 L (3.80-5.40) m/uL Lymphocytes # 0.7 L (1.0-4.8) k/uL Potassium 3.4 L (3.5-5.1) mmol/L Glucose 136 H (74-99) mg/dL AST 58 H (14-36) U/L ALT 43 H (4-34) U/L Total Protein 6.1 L (6.3-8.2) g/dL Albumin 3.3 L (3.5-5.0) g/dL Procalcitonin 1.68 H (0.02-0.09) ng/mL Microbiology - Last 24 Hours (Table) 02/23/23 13:49 Blood Culture - Preliminary Blood No Growth after 72 hours 02/23/23 13:49 Blood Culture - Preliminary Blood No Growth after 72 hours Assessment and Plan Assessment: Community-acquired pneumonia. Chest x-ray on arrival showed right lower lobe patchy infiltrates felt to reflect pneumonia. This is most likely a bacterial pneumonia. Pro-calcitonin level is elevated. There is interval improvement in the right lung pulmonary infiltrate and the patient be kept on the same antibiotics. The patient's pulmonary infiltrate is unchanged on today's chest x-ray. Nevertheless, the pro calcitonin level is improving. Acute hypoxic respiratory failure secondary to above. Currently on 3 L nasal cannula. History of paroxysmal atrial fibrillation, heart rate is currently irregular. She is anticoagulated on Eliquis. Patient has had previous cardiac ablation History of TIAs Obstructive sleep apnea with CPAP use Hypertension Ex-smoker Plan: Continue same antibiotic coverage with Rocephin 2 g and Zithromax 5 mg by mouth daily Repeat pro-calcitonin level tomorrow Will not do any antibiotic modification. Clinically the patient is improved. Chest x-ray findings are may be lagging behind. Repeat chest x-ray tomorrow Repeat labs tomorrow Wean down FiO2 as tolerated, currently on room air oxygen Blood cultures are negative We'll continue to follow
[2023-02-26] MEDS: ATORVASTATIN 20 MG TAB PO SCH (21:33)
[2023-02-27] MEDS: IPRATROPIUM-ALBUTEROL 3 ML NEB INHALATION SCH ×6 (00:44→21:10)
--- NOTE | 2023-02-27 07:27 | XR ---
EXAMINATION TYPE: XR chest 1V portable DATE OF EXAM: 02/27/2023 7:08 AM COMPARISON: Chest radiographs from 02/26/2023 TECHNIQUE: XR chest 1V portable Frontal view of the chest. CLINICAL INDICATION:Female, 73 years old with history of right lower lobe pneumonia; FINDINGS: Lungs/Pleura: Similar airspace opacities. No evidence of pneumothorax or pleural effusion. Pulmonary vascularity: Unremarkable. Heart/mediastinum: Cardiomediastinal silhouette is unremarkable. Musculoskeletal: No acute osseous pathology. IMPRESSION: Similar right lower lobe airspace opacities.
[2023-02-27] MEDS: guaiFENesin 600 MG TABLET.ER PO SCH ×2 (08:45→20:33)
[2023-02-27] MEDS: APIXABAN 5 MG TAB PO SCH ×2 (08:45→20:33)
[2023-02-27] MEDS: METOPROLOL SUCCINATE (ER) 25 MG TAB.ER.24H PO SCH ×2 (08:45→20:33)
[2023-02-27] MEDS: PREGABALIN 75 MG CAP PO SCH ×3 (08:45→20:32)
[2023-02-27] MEDS: FUROSEMIDE 40 MG TAB PO SCH (08:45)
[2023-02-27] MEDS: LOSARTAN 50 MG TAB PO SCH (08:45)
[2023-02-27] MEDS: AZITHROMYCIN 500 MG TAB PO SCH (08:45)
[2023-02-27 09:54] LABS: Anion Gap 4 mmol/L; Blood Urea Nitrogen 12 mg/dL (7-17); Calcium 8.7 mg/dL (8.4-10.2); Carbon Dioxide 32 mmol/L (22-30); Chloride 102 mmol/L (98-107); Glucose 113 mg/dL (74-99); Potassium 3.6 mmol/L (3.5-5.1); Sodium 138 mmol/L (137-145)
[2023-02-27 10:09] LABS: African American GFR (CKD) >90 (>60 ml/min/1.73 sqM); Non-African American GFR(CKD) 82 (>60 ml/min/1.73 sqM)
[2023-02-27 11:31] LABS: Glucose,Whole Blood 198 mg/dL (70-110)
--- NOTE | 2023-02-27 12:33 | P.PN ---
Subjective Progress Note Date: 02/27/23 This is a 73-year-old female with a past medical history significant for atrial fibrillation with ablation in August 2022, hypertension, valvular heart disease, and congestive heart failure. Patient follows in the office with Dr. Suarez. We have been asked to see the patient in consultation for [place] with RVR. Patient examined at the bedside. Patient states she was around her daughter and caught a respiratory virus from her around [facility]. She states over the past few days she has become progressively more short of breath. She reports a frequent nonproductive cough. She denied any chest pain or pressure. Patient presented to the hospital for further evaluation. Patient was found to have right lower lobe pneumonia was started on antibiotics. The patient was also noted to be in atrial fibrillation with RVR. She was started on IV Cardizem which is currently infusing at 5 mg an hour. Telemetry reveals atrial fibrillation with a heart rate between 100-120 at the time of examination. She denies any chest pain or pressure. She denies any palpitations grade she continues to report shortness of breath this morning. She is on 3 L nasal cannula. Echocardiogram revealed an ejection fraction of 55-60% with moderate MR. 02/27/2023 She was seen and examined resting comfortably in bed. Continues to report shortness of breath but better. She continues to cough without much production. Is currently on metoprolol succinate 25 mg by mouth twice a day. She remains in atrial fibrillation but heart rate is controlled. Objective - Vital Signs Vital signs: Vital Signs Temp 97.9 F 02/27/23 11:35 Pulse 84 02/27/23 11:57 Resp 16 02/27/23 11:35 BP 102/63 02/27/23 11:35 Pulse Ox 95 02/27/23 11:35 FiO2 Intake & Output 02/26/23 02/27/23 02/27/23 18:59 06:59 18:59 Intake Total 540 10 Balance 540 10 Intake: IV 10 Invasive Line 1 10 Oral 540 Other: Voiding Method Toilet Toilet Toilet # Voids 1 1 - Exam GENERAL: Well-developed in no acute distress. HEENT: Head is normocephalic. Pupils are equal, round. Sclerae anicteric. Mucous membranes of the mouth are moist. Neck supple. No JVD or thyromegaly LUNGS: Respirations even and unlabored. Lungs with crackles noted but improved air exchange overall. HEART: Irregular rate and rhythm. S1 and S2 heard. ABDOMEN: Soft. Nondistended. Nontender. EXTREMITIES: Normal range of motion. No clubbing or cyanosis. Peripheral puls es intact. No lower extremity edema NEUROLOGIC: Awake and alert. Oriented x 3. - Labs CBC & Chem 7: 02/26/23 08:01 02/27/23 08:23 Labs: Abnormal Lab Results - Last 24 Hours (Table) 02/26/23 02/27/23 02/27/23 Range/Units 08:01 08: 11:30 Carbon Dioxide 32 H (22-30) mmol/L Glucose 113 H (74-99) mg/dL POC Glucose (mg/dL) 198 H (70-110) mg/dL Procalcitonin 1.68 H (0.02-0.09) ng/mL Microbiology - Last 24 Hours (Table) 02/23/23 13:49 Blood Culture - Preliminary Blood No Growth after 72 hours 02/23/23 13:49 Blood Culture - Preliminary Blood No Growth after 72 hours Assessment and Plan Assessment: Shortness of breath Right-sided community acquired pneumonia Persistent atrial fibrillation with RVR, on anticoagulation with Eliquis History of ablation, August 2022 History of cardioversion Hypertension Valvular heart disease Plan: From cardiology's perspective medications were reviewed and we will continue the same at this time. From our standpoint once stable from pulmonary perspective patient may be discharged home and follow-up in the office in outpatient with Dr. Suarez. [employer] note has been reviewed, I agree with a documented findings and plan of care. Patient was seen and examined.
--- NOTE | 2023-02-27 13:58 | P.PN ---
Subjective Progress Note Date: 02/27/23 HISTORY OF PRESENT ILLNESS This is a 73-year-old female with past medical history of atrial tachycardia st atus post ablation and chronic atrial fibrillation with history of previous ablations and PVI, hypertension, hyperlipidemia, generalized anxiety disorder and panic disorder, obstructive sleep apnea, TIAs. Patient presented to the emergency center with cough and congestion going on for couple days. She complains of chest congestion and sinus congestion with occasional cough with a little shortness of breath. Also feeling fevers but no chest pain. EKG showed atrial fibrillation at a ventricular rate 133 bpm. Initial chest x-ray reveals right lower lobe patchy infiltrate felt to reflect pneumonia. Repeat chest x-ray reveals worsening right mid to lower lung acute infiltrate and/or atelectasis., Cardizem drip and initially admitted to the [facility] floor and then transferred to cardiac stepdown unit. Heart rate was initially in the 140s now running 110 to 120s on Cardizem drip at 5 mg per hour. Consults requested with pulmonary medicine and cardiology. 02/25: Patient has been seen by cardiology and flecainide was discontinued and metabolic process and it was increased to 25 mg daily, patient to be weaned off Cardizem drip. Echocardiogram has been ordered. Heart rate is now in the 90s, remains in atrial fibrillation. Pro-calcitonin 2.74. Patient has been seen and followed by pulmonary medicine, continued on bronchodilators and antibiotics as well as supplemental oxygen to maintain pulse ox greater than 92%. Repeat chest x-ray reveals improving right middle lobe infiltrate. A posterior right pleural effusion may be present. 02/26: Patient heart rate is improved and she remains in atrial fibrillation. She has been continued on Cardizem drip at 5 mg per hour. Heart rate is mostly in the 80s to 90s, blood pressure 104/62, pulse ox is 96% on room air. Patient continues to have some shortness of breath. She has been continued on IV antibiotics. Repeat blood work reveals WBC 4.8, hemoglobin 11.6, platelet count 185. Sodium 139, potassium 3.4 and will be replaced. BUN 9 and creatinine 0.7. Blood sugar 136. AST 58, ALT 43. Pro-calcitonin was elevated at 2.74. Blood culture showing no growth at 48 hours. Repeat chest x-ray reveals background COPD changes with minimally improved right mid to lower lung pneumonia with small right pleural effusion. Echocardiogram reveals EF of 55-60%, moderate mitral regurgitation. 02/27: Patient has been transitioned to oral azithromycin and continued on DuoNeb treatments. Repeat blood work reveals potassium 3.6, BUN 12 and creatinine 0.73. Blood sugar 113. Blood culture remains no growth and now at 72 hours. P ilana has been afebrile for greater than 24 hours. Patient remains in atrial fibrillation. Cardiology increased frequency of Toprol yesterday to twice daily. Heart rate is in the 70s and 80s, blood pressure 125/85, pulse ox 93% on room air. Home oxygen assessment to be done today. A repeat chest x-ray reveals similar right lower lobe airspace opacities. Patient has been seen today by cardiology and cleared for discharge with planned follow-up with Dr. Suarez in the office REVIEW OF SYSTEMS Constitutional: No fever, no chills, no night sweats. No weight change. No weakness, fatigue or lethargy. No daytime sleepiness. EENT: No headache. No blurred vision or double vision, no loss of vision. No loss of Hearing, no ringing in the ears, no dizziness. No nasal drainage or congestion. No epistaxis. No sore throat. Lungs: Reports shortness of breath slowly improving, cough, no sputum production. No wheezing. Cardiovascular: Denies chest pain, no lower extremity edema. No palpitations. No paroxysmal nocturnal dyspnea. No orthopnea. No lightheadedness or dizziness. No syncopal episodes. Abdominal: No abdominal pain. No nausea, vomiting. No diarrhea. No constipation. No bloody or tarry stools. No loss of appetite. Genitourinary: No dysuria, increased frequency, urgency. No urinary retention. Musculoskeletal: No myalgias. No muscle weakness, no gait dysfunction, no frequent falls. Chronic back pain. No neck pain. Integumentary: No wounds, no lesions. No rash or pruritus. No unusual bruising. No change in hair or nails. Neurologic: No aphasia. No facial droop. No change in mentation. No head injury. No headache. No paralysis. No paresthesia. Psychiatric: No depression. No anxiety. No mood swings. Endocrine: No abnormal blood sugars. No weight change. No excessive sweating or thirst. No cold intolerance. PHYSICAL EXAMINATION Gen: This is a 72-year-old female. She is resting in bed and appears to be comfortable at rest. No acute respiratory distress noted. Family members are at bedside. HEENT: Head is atraumatic, normocephalic. Pupils equal, round. Sclerae is anicteric. NECK: Supple. No JVD. No lymphadenopathy. No thyromegaly. LUNGS: Few crackles at the bases. Scattered rhonchi. No intercostal retractions. HEART: First heart sound is depressed, second heart sound is normal, irregular, no murmur. ABDOMEN: Soft. Bowel sounds are present. No masses. No tenderness. EXTREMITIES: No pedal edema. No calf tenderness. Dorsalis pedis +2 bilaterally NEUROLOGICAL: Patient is awake, alert and oriented x3. Cranial nerves 2 through 12 are grossly intact. ASSESSMENT AND PLAN 1. Acute hypoxic respiratory failure secondary to pneumonia, requiring oxygen therapy. Continue patient on oxygen therapy. 2. Pneumonia right lower lobe. Consult with pulmonary medicine appreciated. Continue antibiotics now on only azithromycin, continue patient on DuoNeb treatments 4 times daily and as needed. Consult with pulmonary medicine appreciated. 3. Chronic persistent atrial fibrillation status post ablation presenting with RVR. Ventricular rate is now controlled. Patient is continued on eliquis 5 mg twice daily, Toprol-XL 25 mg twice daily, cardiology consult appreciated. 4. Generalized anxiety disorder. Continue patient on Xanax 0.25 mg twice daily. 5. Hypertension. Continue losartan 75 mg daily, Toprol-XL 25 mg twice daily. 6. History of TIA. Continue eliquis, statin for secondary prevention 7. Hyperlipidemia. Continue Crestor 10 mg at bedtime. 8. Obstructive sleep apnea on CPAP. 9. GI prophylaxis. Protonix. 10. DVT prophylaxis. Eliquis. DISCHARGE PLAN Return home. Impression and plan of care have been directed as dictated by the signing physician. Sulema Calabrese nurse practitioner acting as scribe for signing physician. Objective - Vital Signs Vital signs: Vital Signs Temp 98.1 F 02/27/23 07:17 Pulse 85 02/27/23 09:40 Resp 15 02/27/23 08:44 BP 125/85 02/27/23 08:44 Pulse Ox 93 L 02/27/23 08:44 FiO2 Intake & Output 02/26/23 02/27/23 02/27/23 18:59 06:59 18:59 Intake Total 540 10 Balance 540 10 Intake: IV 10 Invasive Line 1 10 Oral 540 Other: Voiding Method Toilet Toilet Toilet # Voids 1 1 - Labs CBC & Chem 7: 02/26/23 08:01 02/27/23 08:23 Labs: Abnormal Lab Results - Last 24 Hours (Table) 02/26/23 02/27/23 Range/Units 08:01 08:23 Carbon Dioxide 32 H (22-30) mmol/L Glucose 113 H (74-99) mg/dL Procalcitonin 1.68 H (0.02-0.09) ng/mL Microbiology - Last 24 Hours (Table) 02/23/23 13:49 Blood Culture - Preliminary Blood No Growth after 72 hours 02/23/23 13:49 Blood Culture - Preliminary Blood No Growth after 72 hours
--- NOTE | 2023-02-27 14:49 | P.PN ---
Subjective Progress Note Date: 02/27/23 I'm seeing this patient in new consultation today 02/24/2023 for possible right lower lobe pneumonia. Patient is a 73-year-old white female with past medical history of paroxysmal atrial fibrillation, previous cardiac ablation and cardioversion, TIAs, obstructive sleep apnea with CPAP use, hypertension, and minimal smoking history. Patient has followed with Dr. Moore in the office in the past, and did have a PFT which showed essentially normal lung function. Patient presented yesterday evening with chief complaint of shortness breath and congested cough starting approximately 3 days ago. Patient has also been intermittently febrile. She denies any chest pain, hemoptysis, heart palpitations, syncope, orthopnea. Patient is currently sitting up in bed, on 4 L nasal cannula, in no acute distress. Chest x-ray on arrival showed right lower lobe patchy infiltrates felt to reflect pneumonia. Patient's CBC on arrival shows a WBC count of 6.8, hemoglobin 11.9, hematocrit 35.1, platelets 183,000. Patient's BMP shows a sodium 132, potassium 3.9, chloride 99, serum CO2 28, BUN 16, creatinine 0.78, glucose 100. Patient's lactic acid level was 1.1. She was negative for influenza, RSV, COVID-19. Patient is currently receiving a course of Zithromax and ceftriaxone. Heart rhythm is irregular. She is anticoagulated on Eliquis. Vital signs are stable. On today's evaluation of 02/25/2023, the patient is feeling slightly better. She still weak and her appetite is diminished. The chest x-ray is showing interval improvement in the right lung pulmonary infiltrates. There is improvement elevation of the right hemidiaphragm is visualized. Tunde consolidation involving the right lung. Pro-calcitonin level was elevated at 2.7 and the patient remains on a combination of Rocephin and Zithromax. This is more consistent with a bacterial right lung pneumonia. No other active issues for now. She is in with intermittent stable. No altered mentation. She is on oxygen at 3 L nasal cannula. She is using the incentive spirometer. On 02/26/2023, the patient is on room air oxygen. Her pulse ox is 97%. She continues to have dense consolidation of the right lower lobe which is most likely bacterial infection. The chest x-ray findings of essentially stable. Did not appreciate any significant improvement since yesterday. Nevertheless, the pro calcitonin level has been dropping. The level is currently down to 1.68. She remains on accommodation of Rocephin and Zithromax. Cultures are negative thus far. No chest pain. No pleurisy. She continues to have crackles in the right lung base. No other significant events otherwise for now. No significant leukocytosis. No hemoptysis. No pleurisy. On today's evaluation of 02/27/2023, the patient remains on room air oxygen. She is doing very well. No new complaints. Chest x-ray shows significant improvement in the right lower lobe pulmonary infiltrates. Overall condition is improved and the patient has no other new complaints for now. Cough and congestion is also improved. Objective - Vital Signs Vital signs: Vital Signs Temp 97.9 F 02/27/23 11:35 Pulse 84 02/27/23 11:57 Resp 16 02/27/23 11:35 BP 102/63 02/27/23 11:35 Pulse Ox 95 02/27/23 11:35 FiO2 Intake & Output 02/26/23 02/27/23 02/27/23 18:59 06:59 18:59 Intake Total 540 10 Balance 540 10 Intake: IV 10 Invasive Line 1 10 Oral 540 Other: Voiding Method Toilet Toilet Toilet # Voids 1 1 - Exam GENERAL EXAM: Alert, 73-year-old white female , comfortable in no apparent distress. The patient is currently on room air oxygen HEAD: Normocephalic and atraumatic EYES: Normal reaction of pupils, equal size. NOSE: Clear with pink turbinates. THROAT: No erythema or exudates. NECK: No masses, no JVD. CHEST: No chest wall deformity. LUNGS: Equal air entry with diffuse rhonchi and scattered crackles throughout. Room air oxygen with crackles in the right lung base along with some scattered expiratory wheeze CVS: S1 and S2 normal with no audible murmur, irregular rhythm. No extra heart sounds ABDOMEN: No hepatosplenomegaly, active bowel sounds, no guarding or rigidity. SPINE: No scoliosis or deformity SKIN: No rashes CENTRAL NERVOUS SYSTEM: No focal deficits, tone is normal in all 4 extremities. EXTREMITIES: There is no peripheral edema, clubbing, or cyanosis. Peripheral pulses are intact. - Labs CBC & Chem 7: 02/26/23 08:01 02/27/23 08:23 Labs: Abnormal Lab Results - Last 24 Hours (Table) 02/26/23 02/27/23 02/27/23 Range/Units 08:01 08: 11:30 Carbon Dioxide 32 H (22-30) mmol/L Glucose 113 H (74-99) mg/dL POC Glucose (mg/dL) 198 H (70-110) mg/dL Procalcitonin 1.68 H (0.02-0.09) ng/mL Microbiology - Last 24 Hours (Table) 02/23/23 13:49 Blood Culture - Preliminary Blood No Growth after 72 hours 02/23/23 13:49 Blood Culture - Preliminary Blood No Growth after 72 hours Assessment and Plan Assessment: Community-acquired pneumonia. Chest x-ray on arrival showed right lower lobe patchy infiltrates felt to reflect pneumonia. This is most likely a bacterial pneumonia. Pro-calcitonin level is elevated. There is interval improvement in the right lung pulmonary infiltrate and the patient be kept on the same antibiotics. The patient's pulmonary infiltrate is unchanged on today's chest x-ray. Nevertheless, the pro calcitonin level is improving. Acute hypoxic respiratory failure secondary to above. Currently on 3 L nasal cannula. History of paroxysmal atrial fibrillation, heart rate is currently irregular. She is anticoagulated on Eliquis. Patient has had previous cardiac ablation History of TIAs Obstructive sleep apnea with CPAP use Hypertension Ex-smoker Plan: Patient is clinically much improved and the patient is currently on room and oxygen Patient can be discharged home on oral Ceftin and Zithromax combination for the next 5 days Chest x-ray showing improvement and clearing of the right lower lobe pulmonary infiltrate Discharge home either today or tomorrow
[2023-02-27 16:25] LABS: Glucose,Whole Blood 96 mg/dL (70-110)
[2023-02-27 20:02] LABS: Glucose,Whole Blood 125 mg/dL (70-110)
[2023-02-27] MEDS: ATORVASTATIN 20 MG TAB PO SCH (20:33)
[2023-02-27] MEDS: ALPRAZolam 0.25 MG TAB PO PRN (20:33)
[2023-02-28] MEDS: IPRATROPIUM-ALBUTEROL 3 ML NEB INHALATION SCH ×3 (00:11→08:43)
[2023-02-28 06:06] LABS: Glucose,Whole Blood 100 mg/dL (70-110)
[2023-02-28] MEDS: AZITHROMYCIN 500 MG TAB PO SCH (09:01)
[2023-02-28] MEDS: LOSARTAN 50 MG TAB PO SCH (09:01)
[2023-02-28] MEDS: PREGABALIN 75 MG CAP PO SCH (09:01)
[2023-02-28] MEDS: METOPROLOL SUCCINATE (ER) 25 MG TAB.ER.24H PO SCH (09:02)
[2023-02-28] MEDS: FUROSEMIDE 40 MG TAB PO SCH (09:02)
[2023-02-28] MEDS: guaiFENesin 600 MG TABLET.ER PO SCH (09:02)
[2023-02-28] MEDS: APIXABAN 5 MG TAB PO SCH (09:02)
[2023-02-28 09:09] VITALS: BP 112/74; PULSE 94; RESP 18; TEMP 97.6
--- NOTE | 2023-02-28 11:10 | P.PN ---
Subjective Progress Note Date: 02/28/23 I'm seeing this patient in new consultation today 02/24/2023 for possible right lower lobe pneumonia. Patient is a 73-year-old white female with past medical history of paroxysmal atrial fibrillation, previous cardiac ablation and cardioversion, TIAs, obstructive sleep apnea with CPAP use, hypertension, and minimal smoking history. Patient has followed with Dr. Moore in the office in the past, and did have a PFT which showed essentially normal lung function. Patient presented yesterday evening with chief complaint of shortness breath and congested cough starting approximately 3 days ago. Patient has also been intermittently febrile. She denies any chest pain, hemoptysis, heart palpitations, syncope, orthopnea. Patient is currently sitting up in bed, on 4 L nasal cannula, in no acute distress. Chest x-ray on arrival showed right lower lobe patchy infiltrates felt to reflect pneumonia. Patient's CBC on arrival shows a WBC count of 6.8, hemoglobin 11.9, hematocrit 35.1, platelets 183,000. Patient's BMP shows a sodium 132, potassium 3.9, chloride 99, serum CO2 28, BUN 16, creatinine 0.78, glucose 100. Patient's lactic acid level was 1.1. She was negative for influenza, RSV, COVID-19. Patient is currently receiving a course of Zithromax and ceftriaxone. Heart rhythm is irregular. She is anticoagulated on Eliquis. Vital signs are stable. On today's evaluation of 02/25/2023, the patient is feeling slightly better. She still weak and her appetite is diminished. The chest x-ray is showing interval improvement in the right lung pulmonary infiltrates. There is improvement elevation of the right hemidiaphragm is visualized. Tunde consolidation involving the right lung. Pro-calcitonin level was elevated at 2.7 and the patient remains on a combination of Rocephin and Zithromax. This is more consistent with a bacterial right lung pneumonia. No other active issues for now. She is in with intermittent stable. No altered mentation. She is on oxygen at 3 L nasal cannula. She is using the incentive spirometer. On 02/26/2023, the patient is on room air oxygen. Her pulse ox is 97%. She continues to have dense consolidation of the right lower lobe which is most likely bacterial infection. The chest x-ray findings of essentially stable. Did not appreciate any significant improvement since yesterday. Nevertheless, the pro calcitonin level has been dropping. The level is currently down to 1.68. She remains on accommodation of Rocephin and Zithromax. Cultures are negative thus far. No chest pain. No pleurisy. She continues to have crackles in the right lung base. No other significant events otherwise for now. No significant leukocytosis. No hemoptysis. No pleurisy. On today's evaluation of 02/27/2023, the patient remains on room air oxygen. She is doing very well. No new complaints. Chest x-ray shows significant improvement in the right lower lobe pulmonary infiltrates. Overall condition is improved and the patient has no other new complaints for now. Cough and congestion is also improved. 02/28/2023, the patient is doing well. No specific complaints. The patient is going home today on a combination of cefuroxime and Zithromax to complete outpatient antibiotics. She is in nature fibrillation. She is on anticoagulation. Hemodynamically stable. No altered mentation. Cough and congestion is subsided. Objective - Vital Signs Vital signs: Vital Signs Temp 97.6 F 02/28/23 09:02 Pulse 94 02/28/23 09:02 Resp 18 02/28/23 09:02 BP 112/74 02/28/23 09:02 Pulse Ox 94 L 02/28/23 09:02 FiO2 21 02/27/23 21:12 Intake & Output 02/27/23 02/28/23 02/28/23 18:59 06:59 18:59 Intake Total 10 368 Balance 10 368 Intake: IV 10 10 Invasive Line 1 10 10 Oral 358 Other: Voiding Method Toilet Toilet Toilet # Voids 2 2 - Exam GENERAL EXAM: Alert, 73-year-old white female , comfortable in no apparent distress. The patient is currently on room air oxygen HEAD: Normocephalic and atraumatic EYES: Normal reaction of pupils, equal size. NOSE: Clear with pink turbinates. THROAT: No erythema or exudates. NECK: No masses, no JVD. CHEST: No chest wall deformity. LUNGS: Equal air entry with diffuse rhonchi and scattered crackles throughout. Room air oxygen with crackles in the right lung base along with some scattered expiratory wheeze CVS: S1 and S2 normal with no audible murmur, irregular rhythm. No extra heart sounds ABDOMEN: No hepatosplenomegaly, active bowel sounds, no guarding or rigidity. SPINE: No scoliosis or deformity SKIN: No rashes CENTRAL NERVOUS SYSTEM: No focal deficits, tone is normal in all 4 extremities. EXTREMITIES: There is no peripheral edema, clubbing, or cyanosis. Peripheral pulses are intact. - Labs CBC & Chem 7: 02/26/23 08:01 02/27/23 08:23 Labs: Abnormal Lab Results - Last 24 Hours (Table) 02/27/23 02/27/23 02/27/23 Range/Units 08: 11:30 20:01 POC Glucose (mg/dL) 198 H 125 H (70-110) mg/dL Procalcitonin 0.96 H (0.02-0.09) ng/mL Microbiology - Last 24 Hours (Table) 02/23/23 13:49 Blood Culture - Preliminary Blood No Growth after 96 hours 02/23/23 13:49 Blood Culture - Preliminary Blood No Growth after 96 hours Assessment and Plan Assessment: Community-acquired pneumonia. Chest x-ray on arrival showed right lower lobe patchy infiltrates felt to reflect pneumonia. This is most likely a bacterial pneumonia. Pro-calcitonin level is elevated. There is interval improvement in the right lung pulmonary infiltrate and the patient be kept on the same antibiotics. The patient's pulmonary infiltrate is unchanged on today's chest x-ray. Nevertheless, the pro calcitonin level is improving. Acute hypoxic respiratory failure secondary to above. Currently on 3 L nasal cannula. History of paroxysmal atrial fibrillation, heart rate is currently irregular. She is anticoagulated on Eliquis. Patient has had previous cardiac ablation History of TIAs Obstructive sleep apnea with CPAP use Hypertension Ex-smoker Plan: Discharge home today Patient is clinically much improved and the patient is currently on room and oxygen Patient being discharged on oral cefuroxime and Zithromax combination for the next 5 days Chest x-ray showing improvement and clearing of the right lower lobe pulmonary infiltrate Discharge home today
== END 2023-02-28 11:20 | disposition home or self-care (01) | DRG 193 ==
LOC: EC 12:33 → 5NMEDONC 14:39 → 3SCARD 02-24 14:30
PROVIDERS: ADMIT Internal Medicine; ATTEND Internal Medicine
DX: J15.9 Unspecified bacterial pneumonia (principal); J96.01 Acute respiratory failure with hypoxia; I48.19 Other persistent atrial fibrillation; J98.11 Atelectasis; G47.33 Obstructive sleep apnea (adult) (pediatric); I50.9 Heart failure, unspecified; Z20.822 Contact with and (suspected) exposure to COVID-19; F43.10 Post-traumatic stress disorder, unspecified; I08.1 Rheumatic disorders of both mitral and tricuspid valves; I11.0 Hypertensive heart disease with heart failure; F41.1 Generalized anxiety disorder; F41.0 Panic disorder [episodic paroxysmal anxiety]; E78.5 Hyperlipidemia, unspecified; Z86.73 Personal history of transient ischemic attack (TIA), and cerebral infarction without residual deficits; Z79.899 Other long term (current) drug therapy
CPT/HCPCS: 36415; 71045; 71046; 80048; 80053; 83605; 83735; 84145; 85025; 87040; 87636; 93005; 93306; 94640; 94667; 94760; 96361; 96365; 96367; 99284; 99285

== ENCOUNTER → 2024-06-06 | Outpatient (CLI) | payer MEDICARE, BC ==
[2024-06-06 19:57] LABS: HCT 37.7 % (37.2-46.3); HGB 12.7 g/dL (12.0-15.0); MCH 31.4 pg (27.0-32.0); MCHC 33.7 g/dL (32.0-37.0); MCV 93.1 FL (80.0-97.0); Mean Platelet Volume 10.9 FL (9.5-12.2); NRBC Per 100 WBC 0 X 10*3/uL (0.00-0.01); Platelet Count 224 X 10*3/uL (140-440); RBC 4.05 X 10*6/uL (4.10-5.20); RDW 13.4 % (11.5-14.5); WBC 5.32 X 10*3/uL (4.50-10.00)
[2024-06-06 19:59] LABS: Blood Urea Nitrogen 14.1 mg/dL (9.0-27.0); Carbon Dioxide 26.3 mmol/L (21.6-31.8); Chloride 100 mmol/L (96-109); Potassium 4.6 mmol/L (3.5-5.5); Sodium 136 mmol/L (135-145)
== END | disposition home or self-care (01) ==
LOC: LABPAT 14:05
PROVIDERS: ATTEND Student in an Organized Health Care Education/Training Program
DX: Z01.812 Encounter for preprocedural laboratory examination (principal); R07.89 Other chest pain
CPT/HCPCS: 36415; 80051; 82565; 84520; 85027

== ENCOUNTER → 2024-09-23 | Outpatient (CLI) | payer MEDICARE, BC ==
[2024-09-23 15:19] LABS: Blood Urea Nitrogen 18.4 mg/dL (9.0-27.0); Carbon Dioxide 28.8 mmol/L (21.6-31.8); Chloride 107 mmol/L (96-109); Sodium 144 mmol/L (135-145)
[2024-09-23 15:27] LABS: HCT 42.2 % (37.2-46.3); HGB 13.8 g/dL (12.0-15.0); MCH 30.9 pg (27.0-32.0); MCHC 32.7 g/dL (32.0-37.0); MCV 94.6 FL (80.0-97.0); Mean Platelet Volume 10.8 FL (9.5-12.2); NRBC Per 100 WBC 0 X 10*3/uL (0.00-0.01); Platelet Count 248 X 10*3/uL (140-440); RBC 4.46 X 10*6/uL (4.10-5.20); RDW 13.7 % (11.5-14.5)
== END | disposition home or self-care (01) ==
LOC: LABPAT 11:09
PROVIDERS: ATTEND Internal Medicine Clinical Cardiac Electrophysiology
DX: Z01.812 Encounter for preprocedural laboratory examination (principal); I48.19 Other persistent atrial fibrillation; I49.5 Sick sinus syndrome; R00.0 Tachycardia, unspecified
CPT/HCPCS: 80051; 82565; 84520; 85027

== ENCOUNTER 2024-10-10 05:42 | Day surgery (SDC) | payer MEDICARE, BC ==
[2024-10-10] MEDS: IV FLUID CONTINUATION 1,000 ML IV ONE (07:00)
[2024-10-10] MEDS: SODIUM CHLORIDE 0.9% 1,000 ML IV SCH ×5 (07:00→17:29)
[2024-10-10] MEDS ORDERED: PROPOFOL 10 MG/ML 20 ML VIAL IV ONE (07:31)
[2024-10-10] MEDS ORDERED: NEOSTIGMINE 1 MG/ML 10 ML VIAL ONE (07:31)
[2024-10-10] MEDS ORDERED: LIDOCAINE 1% INJ 10MG/ML (20 ML MDV) ONE (07:31)
[2024-10-10] MEDS ORDERED: ROCURONIUM 10 MG/ML (5 ML VIAL) IV ONE (07:31)
[2024-10-10] MEDS ORDERED: GLYCOPYRROLATE 0.2 MG/ML 2 ML VIAL ONE (07:31)
[2024-10-10] MEDS ORDERED: PHENYLEPHRINE 10 MG/ML VIAL ONE (07:31)
[2024-10-10] MEDS ORDERED: MIDAZOLAM 2 MG/2 ML VIAL ONE (07:31)
[2024-10-10] MEDS ORDERED: fentaNYL (PF) 50 MCG/ML 2 ML AMP ONE (07:31)
[2024-10-10] MEDS ORDERED: SUCCINYLCHOLINE CHLORIDE 200 MG/10 ML VIAL IV ONE (07:31)
[2024-10-10] MEDS: HEPARIN SODIUM (1,000 UNIT/ML) 1,000 UNIT in SODIUM CHLORIDE 0.9% 1,000 ML IRRIGATION ONE (08:00)
--- NOTE | 2024-10-10 08:06 | P.HPCAR ---
History of Present Illness This is Dr. Suarez dictating an H/P on this patient The patient was interviewed and examined IMPRESSION / ASSESSMENT: Paroxysmal atrial tachycardia/paroxysmal atrial fibrillation/intermittently with 2-1 AV block and advanced heart block Failing flecainide Tachybradycardia syndrome Nonsustained VT Symptomatic, symptoms of shortness of breath and squeezing chest discomfort CAD mid LAD stenosis, 50% PLAN: EP study atrial flutter ablation Thereafter management of tachybradycardia syndrome with biventricular pacemaker and medical treatment If rates are not controlled then we will proceed with AV junction ablation in the future HPI Patient continues to complain of shortness of breath and tightness in the chest. She has not been feeling well in the last few weeks Dizziness but no loss of consciousness ROS: No fever chills or rigors, no cough, phlegm or expectoration, no nausea, vomiting or diarrhea, no hematuria, dysuria, no musculoskeletal complaints, no strokes or seizures, no skin lesions. EXAMINATION: Blood pressure 142/85 mmHg pulse rate in the 70s irregular afebrile Breath sounds are clear no rhonchi no crackles Heart sounds are irregular no murmurs No JVD No lower extremity edema REVIEW OF LABS, ECG & MEDICAL DATA , Medications include low-dose metoprolol, losartan, flecainide, Eliquis Physical Exam Vitals: Intake and Output 10/09/24 10/10/24 10/10/24 22:59 06:59 14:59 Intake Total 100 Balance 100 Intake: IV 100 Past Medical History Past Medical History: Atrial Fibrillation, CVA/TIA, Hyperlipidemia, Hypertension, Sleep Apnea/CPAP/BIPAP Additional Past Medical History / Comment(s): See Dr Suarez's H&P,SOB,hypoglycemia,kidney stones,TIAs x2-"my brain feels funny" states balance is "bad" partially blocked artery in leg History of Any Multi-Drug Resistant Organisms: None Reported Past Surgical History: Cardiac Ablation Additional Past Surgical History / Comment(s): Colonoscopy; kidney stone removal, exp. lap., cardioversion x4 ablations x 2 Past Anesthesia/Blood Transfusion Reactions: Previous Problems w/ Anesthesia Additional Past Anesthesia/Blood Transfusion Reaction / Comment(s): heart rate fell very low with cardiac ablation and had trouble coming out of anesthesia, had paralytic before being sedated with kidney stone removal yrs ago Smoking Status: Former smoker - Past Family History Father Family Medical History: Cancer Additional Family Medical History / Comment(s): lung Mother Additional Family Medical History / Comment(s): aneurysm brain stem Physical Examination Intake and Output 10/09/24 10/10/24 10/10/24 22:59 06:59 14:59 Intake Total 100 Balance 100 Intake: IV 100 Results Current Medications Generic Name Dose Route Start Last Admin Trade Name Freq PRN Reason Stop Dose Admin Sodium Chloride 1,000 mls @ 20 mls/hr 10/10/24 06:08 10/10/24 07:00 Saline 0.9% IV 11/09/24 06:07 20 mls/hr .Q24H DUTCH Administration Intake and Output 10/09/24 10/10/24 10/10/24 22:59 06:59 14:59 Intake Total 100 Balance 100 Intake: IV 100
[2024-10-10] MEDS: LIDOCAINE 1% INJ 10MG/ML (20 ML MDV) SQ ONE (08:19)
--- NOTE | 2024-10-10 10:13 | P.EPPROC ---
- EP Procedure Note Electrophysiology Procedure Note: Diagnosis Atrial flutter, paroxysmal with RVR Tachybradycardia syndrome Paroxysmal atrial fibrillation with tachybradycardia syndrome Atrial fibrillation on surface ECG looks like an atrial tachycardia with organized atrial activity but intracardiac electrograms revealed atrial fib rillation with disorganized activity Final diagnosis Successful atrial flutter ablation, complete line of block in the cavotricuspid isthmus Details Patient is brought to the EP lab in a fasting state. Written informed consent was obtained prior to the procedure. The right left groins were prepped and draped as a protocol. Venous sheaths were placed in the right left femoral veins. These were later closed with a Vascade device and Perclose Intracardiac echo revealed normal LV and RV size and function normal left atrial size no left atrial appendage thrombus and a thickened pericardium around the left ventricle and around the atria especially in the posterior LA CS catheter revealed atrial fibrillation, paroxysmal while the surface ECG suggested organized activity 3D anatomic mapping of the cavotricuspid isthmus was performed. The isthmus was in the shape of a single large pouch Electroanatomic mapping was performed. RF ablation was performed in the cavotricuspid isthmus. A complete line of block was made. The reversed loop technique was used since the isthmus was 1 single large pouch. No gaps were left and a complete line of block was made All catheters were removed at the end of the procedure. Intracardiac echo did not reveal any pericardial effusion Perclose as well as Vascade was used to close all venous punctures. Patient tolerated procedure well without any acute complications
--- NOTE | 2024-10-10 10:20 | P.PN ---
Progress Note - Text Patient underwent ablation for typical atrial flutter today She also has paroxysmal atrial fibrillation with tachybradycardia syndrome Tomorrow she will have a biventricular pacemaker implanted for management of tachybradycardia syndrome Lipid panel sent today. Currently on rosuvastatin 10 mg p.o. daily Will adjust accordingly to keep LDL at or below 50 mg/dL Hold Eliquis tomorrow morning No EKG patches over left pectoral area Hibiclens bath tonight and tomorrow morning
[2024-10-10] MEDS: ACETAMINOPHEN IV (For NPO) 1,000 MG in EMPTY BAG 1 BAG IVPB ONE (11:24)
[2024-10-10 16:07] LABS: Chol/HDL Ratio 1.62 Ratio; LDL Cholesterol,Calculated 34.9 mg/dL (0.0-131.0); VLDL Calculation 10.72 mg/dL (5.00-40.00)
[2024-10-10] MEDS: PREGABALIN 75 MG CAP PO SCH (16:21)
[2024-10-10] MEDS: APIXABAN 5 MG TAB PO SCH ×2 (16:22→21:10)
[2024-10-10 17:21] LABS: INR 1.2 (<1.2); Prothrombin Time 12.5 sec (10.0-12.5)
[2024-10-10] MEDS: ceFAZolin 1 GM in SODIUM CHLORIDE 0.9% IRRIG BTL 250 ML IRRIGATION STA (17:29)
[2024-10-10 17:47] LABS: Potassium 3.9 mmol/L (3.5-5.1)
[2024-10-10 17:48] LABS: African American GFR (CKD) >90 (>60 ml/min/1.73 sqM); Anion Gap 5 mmol/L; Blood Urea Nitrogen 12 mg/dL (7-17); Carbon Dioxide 24 mmol/L (22-30); Chloride 110 mmol/L (98-107); Glucose 104 mg/dL (74-99); Non-African American GFR(CKD) 80 (>60 ml/min/1.73 sqM); Sodium 139 mmol/L (137-145)
[2024-10-10] MEDS: METOPROLOL SUCCINATE (ER) 25 MG TAB.ER.24H PO SCH (21:10)
[2024-10-10] MEDS: ATORVASTATIN 20 MG TAB PO SCH (21:10)
[2024-10-10] MEDS: ALPRAZolam 0.25 MG TAB PO PRN (21:14)
[2024-10-11] MEDS: LOSARTAN 50 MG TAB PO SCH (08:56)
[2024-10-11] MEDS ORDERED: LIDOCAINE 1% INJ 10MG/ML (20 ML MDV) ONE (13:55)
[2024-10-11] MEDS ORDERED: MIDAZOLAM 2 MG/2 ML VIAL ONE (13:55)
[2024-10-11] MEDS ORDERED: fentaNYL (PF) 50 MCG/ML 2 ML AMP ONE (13:55)
[2024-10-11] MEDS: IV FLUID CONTINUATION 900 ML IV ONE (13:55)
[2024-10-11] MEDS ORDERED: PROPOFOL 10 MG/ML 20 ML VIAL IV ONE (13:55)
[2024-10-11] MEDS ORDERED: HYDROmorphone (PF) 1 MG/ML ONE (13:55)
[2024-10-11] MEDS: IOPAMIDOL-370 100ML BTL INJ ONE (14:07)
--- NOTE | 2024-10-11 14:15 | P.PN ---
Progress Note - Text Zak is doing well. No chest discomfort dizziness lightheadedness. She felt well overnight. This morning she is in sinus rhythm. Twelve-lead EKG is normal Yesterday she underwent atrial flutter ablation Groins of healed well no hematoma no swelling. Mild tenderness Heart sounds are normal regular More no murmurs no gallop no rub blood pressure 142/90 mmHg pulse rate in the 60s afebrile No murmurs no gallop no rub Impression paroxysmal atrial fibrillation despite medical treatment and multiple ablations Atrial flutter ablation yesterday Tachybradycardia syndrome Plan Patient has symptomatic tachybradycardia syndrome and today she will undergo a biventricular pacemaker implantation. Following that the dose of beta-blockers will be increased. If she continues to have A-fib with RVR and AV node modification will be performed in the future
[2024-10-11] MEDS: ceFAZolin 1 GM in SODIUM CHLORIDE 0.9% IRRIG BTL 250 ML IRRIGATION PRN (14:31)
[2024-10-11] MEDS: HEPARIN SODIUM,PORCINE (1 ML) 2,500 UNIT in SODIUM CHLORIDE 0.9% 250 ML IRRIGATION ONE (14:32)
[2024-10-11] MEDS: LIDOCAINE 1% INJ 10MG/ML (20 ML MDV) SQ ONE (14:32)
[2024-10-11] MEDS: ROPIVACAINE 5 MG/ML 30 ML VIAL MISCELLANE ONE (14:33)
--- NOTE | 2024-10-11 16:38 | P.EPPROC ---
- EP Procedure Note Electrophysiology Procedure Note: Diagnosis Tachybradycardia syndrome, paroxysmal atrial fibrillation with RVR Sick sinus syndrome, symptomatic Procedure Dual-chamber pacemaker implantation with conduction system pacing (left bundle pacing) Left upper extremity venogram Details Patient was brought to the EP lab in a fasting state. Written informed consent was obtained prior to the procedure. Conscious sedation provided by DIET TECHNICIAN REGISTERED. IV antibiotics administered. Local anesthesia administered. A 4 cm incision made in the pectoral area. Subfascial pocket made. Venous accesses obtained Venous sheaths placed. Leads placed in the right heart. 2 sets of pacing cables were used; one for backup temporary pacing and the other for assessment of current of injury and signal analysis. A 52 cm atrial pacing lead was first positioned in the RV apex for temporary pacing during mapping and conduction system pacing Thresholds were interrogated and backup high output pacing was provided This atrial lead was then removed from the right ventricle and later positioned in the right atrial appendage and the permanent lead A deflected sheath was prepped. A coronary sinus decapolar catheter was placed within this sheath. The catheter along with the sheath was then passed into the right heart, the catheter was prolapsed across the tricuspid valve, into the right ventricle and then further into the right ventricular outflow tract across the pulmonic valve into the pulmonary artery. This sheath was slid over this decapolar catheter into the RVOT. Thereafter the catheter last sheath assembly was withdrawn from the RVOT along the septum to the mid septal area. The sheath was appropriately to to map the right ventricular aspect of the septum. The decapolar catheter was withdrawn, the sheath flushed again and the screw-in pacing lead placed within the sheath. Further detailed unipolar pace-mapping of the septum was performed and once the appropriate based morphology was obtained on lead V1, the lead was screwed into the septum. The lead was screwed in 4-5 returns at a time while monitoring the current of injury, the pacing impedance changes and the paced QRS morphology. The stimulus to peak of V6 QRS was measured at each step. Once a QR or rSR pattern of paced QRS in lead V1 was obtained, a left bundle signal was sought. Impedance was measured and thresholds were measured. An impedance drop of 100-200 ohms but above 550 ohms was targeted along with an unchanged vector of the current of injury signal. The final positioning was based on the QRS morphology in lead V1 and a short stimulus to peak of the V6 QRS of less than 90 ms. The sheath was withdrawn, stability of the pacing lead deep in the septum was confirmed on GRAVES and JADEN views and the sheath was slipped and an adequate heel was provided for the lead. Unipolar and bipolar electrogram morphology obtained Atrial lead positioned in the right atrial appendage. Sensing, thresholds and impedances measured following positioning and securing the lead in the right atrial appendage Left bundle lead parameters: R waves 9.8 mV, pacing impedance 627 ohms, pacing threshold 0.5 V at 0.4 ms Paced QRS morphology typical right bundle branch block morphology with a QRS width of 144 ms, stimulus-peak of V6 69 ms Medtronic 3830-lead, 69 cm in length Atrial lead parameters 52 cm model #5076, Medtronic lead: P waves 3.1 mV pacing impedance 646 ohms and pacing threshold 0.75 V at 0.4 ms Device plant custodian: Medtronic dual-chamber pacemaker, DORIAN XT DR MRI Dual-chamber pacemaker device connected to the leads and placed in the subfascial pocket Antibiotic pouch placed Patient tolerated the procedure well without acute complications Pacemaker programming AAIR-DDDR 60-130 ppm Plan Increase metoprolol to 50 mg twice daily, long-acting Stop flecainide Continue apixaban
[2024-10-11] MEDS: METOPROLOL SUCCINATE (ER) 50 MG TAB.ER.24H PO SCH (17:24)
[2024-10-11] MEDS: ACETAMINOPHEN TAB 325 MG TAB PO PRN (18:43)
[2024-10-11] MEDS: APIXABAN 5 MG TAB PO SCH (20:14)
[2024-10-12] MEDS: ACETAMINOPHEN TAB 325 MG TAB PO PRN (08:14)
[2024-10-12 08:41] VITALS: BP 139/81; PULSE 60; RESP 16; TEMP 97.8
--- NOTE | 2024-10-12 08:54 | XR ---
EXAMINATION TYPE: XR chest 2V DATE OF EXAM: 10/12/2024 7:29 AM COMPARISON: 02/27/2023 CLINICAL INDICATION: Female, 74 years old with history of Lead placement check, , TECHNIQUE: Frontal and lateral views FINDINGS: Left anterior chest wall generator with right atrial and right ventricular leads. Heart borderline in size. There are trace bilateral pleural effusions which remain but improvement in the previous inter stitial and right basilar densities. No appreciable pneumothorax. Surgical clips GE junction. IMPRESSION: Borderline heart size. Trace bilateral pleural effusions. Left anterior chest wall two lead pacemaker generator. No appreciable pneumothorax. [facility], , 10/12/2024 8:52 AM
--- NOTE | 2024-10-13 16:16 | P.DS ---
Providers Attending physician: Armando Suarez Primary care physician: Pa [facility] Course: Patient is doing well. No chest discomfort dizziness lightheadedness or palpitations. Minimal soakage of the pacemaker site Chest x-ray with normal limits leads stable no pneumothorax Pacemaker interrogation within normal limits I explained the precautions for the next 1 month Final diagnosis Paroxysmal atrial fibrillation, tachybradycardia syndrome, symptomatic, inability to tolerate beta-blockers on account of this Typical atrial flutter status post successful ablation Dual-chamber pacemaker with conduction system pacing implanted yesterday Chest x-ray within normal limits, stable lead position LDL 35 on statins, patient has mid LAD stenosis nonobstructive, 50% Plan Stop flecainide Increase metoprolol to 50 mg twice daily, succinate Continue anticoagulation If she remains symptomatic, we will proceed with AV junction modification in the future Plan - Discharge Summary Discharge Rx Participant: No New Discharge Prescriptions: Discontinued Metoprolol Succinate (ER) [Toprol XL] 12.5 mg PO BID Flecainide Acetate 50 mg PO BID No Action Apixaban [Eliquis] 5 mg PO BID Temazepam 30 mg PO HS PRN PRN Reason: Insomnia Losartan [Cozaar] 100 mg PO DAILY Pregabalin [Lyrica] 150 mg PO TID Rosuvastatin [Crestor] 10 mg PO HS Vit D(Unk) 1 tab PO DAILY Vit B12 Complex (Unk) 1 tab PO DAILY Calcium (Unk) 1 tab PO DAILY ALPRAZolam [Xanax] 0.25 mg PO DAILY PRN PRN Reason: Anxiety Multivitamins, Thera [Multivitamin (formulary)] 1 tab PO DAILY Discharge Medication List Apixaban [Eliquis] 5 mg PO BID 03/23/19 [History] Temazepam 30 mg PO HS PRN 03/23/19 [History] ALPRAZolam [Xanax] 0.25 mg PO DAILY PRN 11/19/21 [History] Losartan [Cozaar] 100 mg PO DAILY 11/19/21 [History] Pregabalin [Lyrica] 150 mg PO TID 11/19/21 [History] Rosuvastatin [Crestor] 10 mg PO HS 02/23/23 [History] Calcium (Unk) 1 tab PO DAILY 10/04/24 [History] Multivitamins, Thera [Multivitamin (formulary)] 1 tab PO DAILY 10/04/24 [History] Vit B12 Complex (Unk) 1 tab PO DAILY 10/04/24 [History] Vit D(Unk) 1 tab PO DAILY 10/04/24 [History] Follow up Appointment(s)/Referral(s): Armando Suarez MD [STAFF PHYSICIAN] - 01/20/25 4:45 pm (Device clinic follow-up in 1 week Follow-up with Dr. Suarez in 3 months Stop flecainide Increase Toprol-XL to 50 mg twice daily Device Clinic appointment is on Oct.20 @ 3:00pm. appointment will be at the [email or web address]) Patient Instructions/Handouts: Pacemaker (DC), Cardiac Ablation (DC) Activity/Diet/Wound Care/Special Instructions: PATIENT EDUCATION MATERIAL Instructions following a heart rhythm device implant. 1. Keep dressing DRY for 5 DAYS. You may cover the area with Saran or Cling Wrap, prior to a shower. 2. The dressing will be removed in the Device Clinic at [facility]. Absorbable sutures were used to close the wound. 3. Avoid raising the left arm above the shoulder level. 4 week restriction 4. Avoid arm movements, like backscratching, rubbing the head, or pulling on a cord. 4 weeks restriction 5. Gentle range of motion movements of the shoulder, closest to the incision should be performed to avoid a frozen shoulder. ([facility]endulum [facility]) 6. The opposite arm may be used freely. 7. Avoid driving for 7 days. 8. Avoid activities such as golfing, swimming, weed whacking, lifting more than 10 pounds weight, bowling, gymnastics and weight training/lifting. (6 weeks restriction) 9. Activities such as wood chopping with an axe, pull-ups in the gymnasium, power lifting, arc-welding, being close to home induction cooktops will always be a problem. 10. Arm sling is only a reminder not to raise the arm above the head. You do not need to keep the arm completely immobilized. Your free to move the arm and use it and for normal activities. In case of any problems, please call [facility] [place], @ [phone], Attention: Device Clinic Device clinic follow-up in 5 days Follow-up with primary petroleum refinery laborer in 2-3 months Stop flecainide Increase Toprol-XL to 50 mg twice daily Continue anticoagulation Discharge Disposition: HOME SELF-CARE
== END 2024-10-12 11:31 | disposition home or self-care (01) ==
LOC: CATHEP 05:42 → 6NMEDSUR 09:35 → CATHEP 10-12 11:31
PROVIDERS: ATTEND Internal Medicine Clinical Cardiac Electrophysiology
DX: I49.5 Sick sinus syndrome (principal); I10 Essential (primary) hypertension; I25.10 Atherosclerotic heart disease of native coronary artery without angina pectoris; E78.5 Hyperlipidemia, unspecified; I47.19 Other supraventricular tachycardia; I48.0 Paroxysmal atrial fibrillation; I45.9 Conduction disorder, unspecified; I48.3 Typical atrial flutter; Z79.01 Long term (current) use of anticoagulants; Z79.899 Other long term (current) drug therapy; Z86.73 Personal history of transient ischemic attack (TIA), and cerebral infarction without residual deficits; Z87.891 Personal history of nicotine dependence; Z99.89 Dependence on other enabling machines and devices; Z88.8 Allergy status to other drugs, medicaments and biological substances
CPT/HCPCS: 93662; 33208; 93653; 86900; 86901; 80061; 80048; 85610; 86850; 71046; C1898; C1785; J2250 ×2; J0330; J1644 ×2; J2710; J0690 ×2; J2003 ×2; J3010 ×2; J1171; J2795; J0131; J2704 ×2; Q9967; J2371; J1596

== ENCOUNTER → 2025-04-19 | Outpatient (CLI) | payer MEDICARE, BC ==
--- NOTE | 2025-04-19 10:32 | US ---
EXAMINATION TYPE: US liver DATE OF EXAM: 04/19/2025 COMPARISON: NONE CLINICAL INDICATION: Female, 75 years old with history of R79.89 ELEVATED LFTS; Hx Fatty liver and HT N; Hx Renal stone surgery and exploratory surgery. TECHNIQUE: Grayscale and color Doppler imaging of the right upper quadrant was performed. FINDINGS: EXAM MEASUREMENTS: Liver Length: 11.5 cm Gallbladder Wall: 0.2 cm CBD: 0.4 cm Right Kidney: 9.6 x 4.9 x 4.9 cm Pancreas: Tail obscured by overlying bowel gas Liver: wnl Gallbladder: wnl Evidence for sonographic Pulido's sign: No CBD: wnl Right Kidney: wnl IMPRESSION: No evidence for acute process. Liver appears within normal limits. No suspicious masses. [facility], , 04/19/2025 10:30 AM
[2025-04-19 16:17] LABS: Hepatitis A Antibody IgM Nonreactive (Nonreactive); Hepatitis B Surface Antigen Nonreactive (Nonreactive); Hepatitis C IgG Antibody Nonreactive (Nonreactive)
[2025-04-19 16:18] LABS: Hepatitis B Core IgM Nonreactive (Nonreactive)
[2025-04-19 16:39] LABS: ALT 46 U/L (8-44); AST 38 U/L (13-35); Albumin 4.4 g/dL (3.8-4.9); Albumin/Globulin Ratio 1.76 Ratio (1.60-3.17); Alkaline Phosphatase 89 U/L (41-126); Bilirubin, Conjugated 0.21 mg/dL (0.20-0.40); Bilirubin,Unconjugated 0.19 mg/dL (0.20-1.00); Globulin 2.5 g/dL (1.6-3.3); Iron 60 UG/DL (50-170); Total Bilirubin 0.4 mg/dL (0.3-1.2); Total Iron Binding Capacity 339 UG/DL (228-460); Total Protein 6.9 g/dL (6.2-8.2)
[2025-04-19 16:45] LABS: Ceruloplasmin 23.1 mg/dL (20.0-60.0)
== END | disposition home or self-care (01) ==
LOC: RADUSWWP 09:38
PROVIDERS: ATTEND Internal Medicine
DX: R79.89 Other specified abnormal findings of blood chemistry (principal)
CPT/HCPCS: 76705; 80074; 80076; 82390; 82525; 82728; 83516; 83540; 83550; 86038; 86618

== ENCOUNTER → 2025-04-25 | Outpatient (CLI) | payer MEDICARE, BC | END | disposition home or self-care (01) | LOC: LABWHC1 11:48 | PROVIDERS: ATTEND Internal Medicine | DX: A69.20 Lyme disease, unspecified (principal) | CPT/HCPCS: 36415; 86618 ==

== ENCOUNTER → 2025-05-22 | Outpatient (CLI) | payer MEDICARE, BC ==
[2025-05-23 14:20] LABS: Lyme IgG/IgM 1.300
== END | disposition home or self-care (01) ==
LOC: LABWHC1 11:33
PROVIDERS: ATTEND Internal Medicine
DX: A69.20 Lyme disease, unspecified (principal)
CPT/HCPCS: 36415; 86618